=== PATIENT | female | born 1975 | race Caucasian/White ===

== ENCOUNTER 2018-05-11 14:17 | Emergency (ER) | payer OTHER ==
[2018-05-11] MEDS ORDERED: KETOROLAC 30 MG/ML INJ ONE (15:35)
[2018-05-11] MEDS ORDERED: FENTANYL CITR 100 MCG/2 ML ONE (15:35)
[2018-05-11] MEDS ORDERED: NA CHLORIDE 0.9% 1,000 ML ONE (15:36)
[2018-05-11] MEDS ORDERED: ONDANSETRON 4 MG/2 ML VIAL ONE ×2 (15:36→16:16)
--- NOTE | 2018-05-11 15:36 | ER ---
Nurse's Notes [facility] Name: Yue Desir Age: 42 yrs Sex: Female : 1975 Arrival Date: 05/11/2018 Time: 14:19 Bed 6 Private MD: Jax Tabor Diagnosis: Epilepsy and recurrent seizures;Migraine, unspecified;Hypokalemia Presentation: 05/11 14:35 Presenting complaint: Patient states: Migraine, photosensitivity, and N/V since hb yesterday. Hx migraines. Transition of care: patient was not received from another setting of care. Onset of symptoms was May 10, 2018. Risk Assessment: Do you want to hurt yourself or someone else? Patient reports no desire to harm self or others. Initial Sepsis Screen: Does the patient meet any 2 criteria? No. Patient's initial sepsis screen is negative. Does the patient have a suspected source of infection? No. Patient's initial sepsis screen is negative. Care prior to arrival: Medication(s) given: Glucagon, Motrin, at 1200 today. 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 - Social history:: Smoking status: Patient/guardian denies using tobacco. - Ebola Screening: : No symptoms or risks identified at this time. - Family history:: not pertinent. Screenin:00 Abuse screen: Denies threats or abuse. Denies injuries from another. Nutritional jl7 screening: No deficits noted. Tuberculosis screening: No symptoms or risk factors identified. Fall Risk IV access (20 points). Total Mistry Fall Scale indicates No Risk (0-24 pts). Assessment: 15:00 General: Appears in no apparent distress. uncomfortable, Behavior is calm, cooperative, jl7 appropriate for age. Pain: Complains of pain in headache Pain does not radiate. Pain currently is 10 out of 10 on a pain scale. Quality of pain is described as throbbing, Pain began 1 day ago. Is continuous. Neuro: Level of Consciousness is awake, alert, obeys commands, Oriented to person, place, time, situation, Moves all extremities. Gait is unsteady, Speech is normal, Facial symmetry appears normal. Cardiovascular: Patient's skin is warm and dry. Respiratory: Airway is patent Respiratory effort is even, unlabored, Respiratory pattern is regular, symmetrical. GI: Reports nausea, vomiting, Patient currently denies constipation, diarrhea. : No signs and/or symptoms were reported regarding the genitourinary system. EENT: No signs and/or symptoms were reported regarding the EENT system. Derm: Skin is pink, warm \T\ dry. Musculoskeletal: No signs and/or symptoms reported regarding the musculoskeletal system. 15:47 Reassessment: pt reports dizziness. jl7 15:50 Reassessment: Pt to CT. jl7 16:15 Reassessment: Pt reports severe dizziness and nausea. Provider notified, see MAR for jl7 orders. 17:00 Reassessment: pt laying in bed with eyes closed, respiration even and unlabored, NS jl7 bolus infusing at this time. 18:00 Reassessment: Pt reports moderate decrease in dizziness, increased GONZALEZ pain. Finished jl7 administration of fentanyl 25 mcg at this time. 19:35 Reassessment: Patient appears in no apparent distress at this time. Patient and/or tl2 family updated on plan of care and expected duration. Pain level reassessed. Patient is alert, oriented x 3, equal unlabored respirations, skin warm/dry/pink. US results are normal, MD stated pt can be discharged. Pt verbalized understanding of discharge instructions, need for follow up and prescription usage Patient states feeling better. Vital Signs: 14:36 BP 118 / 77; Pulse 67; Resp 16; Temp 98.1; Pulse Ox 98% on R/A; Weight 79.38 kg (M); hb Height 5 ft. 5 in. (165.10 cm); Pain 9/10; 15:47 BP 115 / 76; Pulse 57; Resp 16; Pulse Ox 100% ; jl7 18:00 BP 112 / 79; Pulse 59; Resp 16; Pulse Ox 99% ; jl7 19:13 BP 121 / 71; Pulse 62; Resp 18; Pulse Ox 100% on R/A; tl2 14:36 Body Mass Index 29.12 (79.38 kg, 165.10 cm) hb ED Course: 14:19 Patient arrived in ED. rg4 14:20 Jax Tabor MD is Private Physician. rg4 14:36 Triage completed. hb 14:37 Arm band placed on right wrist. hb 14:41 Willian Butler MD is Attending Physician. shauna 14:45 Nura Henry RN is Primary Nurse. jl7 15:00 Patient has correct armband on for positive identification. Bed in low position. Call jl7 light in reach. Side rails up X 1. Pulse ox on. NIBP on. 15:25 Initial lab(s) drawn, by me, sent to lab. Urine collected:. Inserted saline lock: 20 jl7 gauge in right antecubital area, using aseptic technique. Blood collected. 15:36 Jax Tabor MD is Referral Physician. shauna 15:36 Vinny Worthy MD is Referral Physician. shauna 15:57 CT completed. Patient tolerated procedure well. Patient moved back from CT. bq 16:00 CT Head Brain wo Cont In Process Unspecified. EDMS 19:10 Report given to YESSICA Mosher. jl7 19:18 US Carotid Artery Bilateral In Process Unspecified. EDMS 19:19 Ultrasound completed. Patient tolerated well. ap2 19:35 No provider procedures requiring assistance completed. IV discontinued, intact, tl2 bleeding controlled, No redness/swelling at site. Pressure dressing applied. Administered Medications: 15:15 Not Given (Duplicate Order): Demerol 50 mg IM once shauna 15:15 Not Given (Duplicate Order): Phenergan 25 mg IM once shauna 15:41 Drug: Zofran 4 mg Route: IVP; Site: right antecubital; jl7 17:03 Follow up: Response: No adverse reaction jl7 15:42 Drug: NS 0.9% 1000 ml Route: IV; Rate: 1 bolus; Site: right antecubital; jl7 17:03 Follow up: IV Status: Completed infusion jl7 15:46 Drug: fentaNYL (PF) 50 mcg {Note: 25 mcg administered at this time..} Route: IVP; Site: jl7 right antecubital; 18:01 Follow up: Response: No adverse reaction; Pt c/o GONZALEZ, throbbing is returning. Finished jl7 administration of ordered dose, 25 mcg administered at this time. 15:47 Drug: TORadol 30 mg Route: IVP; Site: right antecubital; jl7 17:03 Follow up: Response: No adverse reaction; Pain is decreased jl7 16:17 Drug: Zofran 4 mg Route: IVP; Site: right antecubital; jl7 18:02 Follow up: Response: No adverse reaction jl7 16:19 Drug: Meclizine 50 mg Route: PO; jl7 18:02 Follow up: Response: No adverse reaction jl7 18:01 Drug: Potassium Chloride 20 mEq Route: PO; jl7 18:02 Follow up: Response: No adverse reaction jl7 Intake: Outcome: 15:36 Discharge ordered by . shauna 19:35 Discharged to home ambulatory, with friend. tl2 19:35 Condition: stable 19:35 Discharge instructions given to patient, Instructed on discharge instructions, follow up and referral plans. medication usage, Demonstrated understanding of instructions, follow-up care, medications, Prescriptions given X 3. 19:37 Patient left the ED. tl2 Signatures: Dispatcher [employer] EDMS Willian Butler MD MD cha Quilty, Betty bq Baxter, Heather RN YESSICA Vidhi Saucedo RN RN tl2 Maggie Alvarado Jahala, RN RN jl7 Ana Dias Corrections: (The following items were deleted from the chart) 18:04 17:03 Response: No adverse reaction jl7 jl7
--- NOTE | 2018-05-11 15:37 | EDPHYS ---
Physician Documentation [facility] Name: Yue Desir Age: 42 yrs Sex: Female : 1975 Arrival Date: 05/11/2018 Time: 14:19 Bed 6 Private MD: Jax Tabor ED Physician Willian Butler HPI: 05/11 15:18 This 42 yrs old Female presents to ER via Ambulatory with complaints of shauna MIGRAINE. 15:18 The patient complains of pain to the top of head, forehead, left side of the back of shauna head, left temporal area, right side of the back of head and right temporal area. The patient describes the headache as a pressure. Onset: The symptoms/episode began/occurred 2 day(s) ago. Associated signs and symptoms: Pertinent positives: nausea, vomiting. Severity of symptoms: At its worst the pain was moderate, in the emergency department the pain is unchanged. Headache History: The patient has had previous headaches and this one is similar to previous episodes. The symptoms are alleviated by nothing. the symptoms are aggravated by nothing. The patient has experienced similar episodes in the past, multiple times. 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 - Social history:: Smoking status: Patient/guardian denies using tobacco. - Ebola Screening: : No symptoms or risks identified at this time. - Family history:: not pertinent. ROS: 15:18 Constitutional: Negative for fever, chills, and weight loss, Eyes: Negative for injury, shauna pain, redness, and discharge, ENT: Negative for injury, pain, and discharge, Neck: Negative for injury, pain, and swelling, Cardiovascular: Negative for chest pain, palpitations, and edema, Respiratory: Negative for shortness of breath, cough, wheezing, and pleuritic chest pain, Abdomen/GI: Negative for abdominal pain, nausea, vomiting, diarrhea, and constipation, Back: Negative for injury and pain, : Negative for injury, bleeding, discharge, and swelling, MS/Extremity: Negative for injury and deformity, Skin: Negative for injury, rash, and discoloration, Psych: Negative for depression, anxiety, suicide ideation, homicidal ideation, and hallucinations, Allergy/Immunology: Negative for hives, rash, and allergies, Endocrine: Negative for neck swelling, polydipsia, polyuria, polyphagia, and marked weight changes, Hematologic/Lymphatic: Negative for swollen nodes, abnormal bleeding, and unusual bruising. 15:18 Neuro: Positive for headache. Exam: 15:18 Constitutional: This is a well developed, well nourished patient who is awake, alert, shauna and in no acute distress. Head/Face: Normocephalic, atraumatic. Eyes: Pupils equal round and reactive to light, extra-ocular motions intact. Lids and lashes normal. Conjunctiva and sclera are non-icteric and not injected. Cornea within normal limits. Periorbital areas with no swelling, redness, or edema. ENT: Nares patent. No nasal discharge, no septal abnormalities noted. Tympanic membranes are normal and external auditory canals are clear. Oropharynx with no redness, swelling, or masses, exudates, or evidence of obstruction, uvula midline. Mucous membranes moist. Neck: Trachea midline, no thyromegaly or masses palpated, and no cervical lymphadenopathy. Supple, full range of motion without nuchal rigidity, or vertebral point tenderness. No Meningismus. Chest/axilla: Normal chest wall appearance and motion. Nontender with no deformity. No lesions are appreciated. Cardiovascular: Regular rate and rhythm with a normal S1 and S2. No gallops, murmurs, or rubs. Normal PMI, no JVD. No pulse deficits. Respiratory: Lungs have equal breath sounds bilaterally, clear to auscultation and percussion. No rales, rhonchi or wheezes noted. No increased work of breathing, no retractions or nasal flaring. Abdomen/GI: Soft, non-tender, with normal bowel sounds. No distension or tympany. No guarding or rebound. No evidence of tenderness throughout. Back: No spinal tenderness. No costovertebral tenderness. Full range of motion. Skin: Warm, dry with normal turgor. Normal color with no rashes, no lesions, and no evidence of cellulitis. MS/ Extremity: Pulses equal, no cyanosis. Neurovascular intact. Full, normal range of motion. Neuro: Awake and alert, GCS 15, oriented to person, place, time, and situation. Cranial nerves II-XII grossly intact. Motor strength 5/5 in all extremities. Sensory grossly intact. Cerebellar exam normal. Normal gait. Psych: Awake, alert, with orientation to person, place and time. Behavior, mood, and affect are within normal limits. Vital Signs: 14:36 BP 118 / 77; Pulse 67; Resp 16; Temp 98.1; Pulse Ox 98% on R/A; Weight 79.38 kg (M); hb Height 5 ft. 5 in. (165.10 cm); Pain 9/10; 15:47 BP 115 / 76; Pulse 57; Resp 16; Pulse Ox 100% ; jl7 18:00 BP 112 / 79; Pulse 59; Resp 16; Pulse Ox 99% ; jl7 19:13 BP 121 / 71; Pulse 62; Resp 18; Pulse Ox 100% on R/A; tl2 14:36 Body Mass Index 29.12 (79.38 kg, 165.10 cm) hb MDM: 14:41 Patient medically screened. [facility] 15:21 Data reviewed: vital signs, nurses notes, lab test result(s), radiologic studies, CT shauna scan. 05/11 15:04 Order name: Urine Culture [facility] 05/11 15:13 Order name: Urine Dipstick--Ancillary (enter results); Complete Time: 18:14 05/11 15:16 Order name: CBC with Diff; Complete Time: 16:48 [facility] 05/11 15:16 Order name: Comprehensive Metabolic Panel; Complete Time: 16:48 [facility] 05/11 15:22 Order name: CT Head Brain wo Cont; Complete Time: 16:48 [facility] 05/11 18:14 Order name: US Carotid Artery Bilateral [facility] 05/11 15:04 Order name: Urine Dipstick-Ancillary (obtain specimen); Complete Time: 15:13 [facility] 05/11 15:04 Order name: Urine Test (obtain specimen); Complete Time: 15:13 [facility] Administered Medications: 15:15 Not Given (Duplicate Order): Demerol 50 mg IM once [facility] 15:15 Not Given (Duplicate Order): Phenergan 25 mg IM once shauna 15:41 Drug: Zofran 4 mg Route: IVP; Site: right antecubital; jl7 17:03 Follow up: Response: No adverse reaction jl7 15:42 Drug: NS 0.9% 1000 ml Route: IV; Rate: 1 bolus; Site: right antecubital; jl7 17:03 Follow up: IV Status: Completed infusion jl7 15:46 Drug: fentaNYL (PF) 50 mcg {Note: 25 mcg administered at this time..} Route: IVP; Site: [facility] right antecubital; 18:01 Follow up: Response: No adverse reaction; Pt c/o GONZALEZ, throbbing is returning. Finished jl7 administration of ordered dose, 25 mcg administered at this time. 15:47 Drug: TORadol 30 mg Route: IVP; Site: right antecubital; [facility] 17:03 Follow up: Response: No adverse reaction; Pain is decreased jl7 16:17 Drug: Zofran 4 mg Route: IVP; Site: right antecubital; jl7 18:02 Follow up: Response: No adverse reaction [facility] 16:19 Drug: Meclizine 50 mg Route: PO; jl7 18:02 Follow up: Response: No adverse reaction jl7 18:01 Drug: Potassium Chloride 20 mEq Route: PO; jl7 18:02 Follow up: Response: No adverse reaction [facility] Disposition: 05/11/18 15:36 Discharged to Home. Impression: Epilepsy and recurrent seizures, Migraine, unspecified, Hypokalemia. - Condition is Stable. - Discharge Instructions: Dizziness, Migraine Headache, Recurrent Migraine Headache, Seizure, Adult, Seizure, Adult, Orsw-se-Dczs, Migraine Headache, Penj-mb-Rish, Dizziness, Odfk-lh-Nzwx. - Prescriptions for Fioricet with Codeine 50- 325-40-30 mg Oral capsule - take 1 capsule by ORAL route every 4 hours as needed not to exceed 6 capsules per 24hrs; 24 capsule. Zofran 4 mg Oral Tablet - take 1 tablet by ORAL route every 12 hours As needed; 20 tablet. Meclizine 25 mg Oral Tablet - take 1 tablet by ORAL route every 8 hours As needed; 30 tablet. - Medication Reconciliation Form, Thank You Letter, Antibiotic Education, Prescription Opioid Use form. - Follow up: Jax Tabor; When: 2 - 3 days; Reason: Recheck today's complaints, Continuance of care, Re-evaluation by your physician. Follow up: Vinny Worthy; When: 2 - 3 days; Reason: Recheck today's complaints, Re-evaluation by your physician. - Problem is new. - Symptoms have improved. Signatures: Dispatcher [employer] EDMS Willian Butler MD MD cha Baxter, Heather RN RN hb Vidhi Saucedo RN RN tl2 Nura Henry RN RN jl7 Corrections: (The following items were deleted from the chart) 16:49 15:36 05/11/2018 15:36 Discharged to Home. Impression: Epilepsy and recurrent seizures; shauna Migraine, unspecified. Condition is Stable. Discharge Instructions: Migraine Headache, Recurrent Migraine Headache, Seizure, Adult, Seizure, Adult, Rtqf-[id number], Migraine Headache, Fmtz-pn-Bocm. Prescriptions for Fioricet with Codeine 26-399-74-30 mg Oral capsule - take 1 capsule by ORAL route every 4 hours as needed not to exceed 6 capsules per 24hrs; 24 capsule, Zofran 4 mg Oral Tablet - take 1 tablet by ORAL route every 12 hours As needed; 20 tablet. and Forms are Medication Reconciliation Form, Thank You Letter, Antibiotic Education, Prescription Opioid Use. Follow up: Jax Tabor; When: 2 - 3 days; Reason: Recheck today's complaints, Continuance of care, Re-evaluation by your physician. Follow up: Vinny Worthy; When: 2 - 3 days; Reason: Recheck today's complaints, Re-evaluation by your physician. Problem is new. Symptoms have improved. shauna 19:37 16:49 05/11/2018 15:36 Discharged to Home. Impression: Epilepsy and recurrent seizures; tl2 Migraine, unspecified; Hypokalemia. Condition is Stable. Discharge Instructions: Migraine Headache, Recurrent Migraine Headache, Seizure, Adult, Seizure, Adult, Gcsw-dn-Adgz, Migraine Headache, Nrga-dg-Lusk. Prescriptions for Fioricet with Codeine [id number] mg Oral capsule - take 1 capsule by ORAL route every 4 hours as needed not to exceed 6 capsules per 24hrs; 24 capsule, Zofran 4 mg Oral Tablet - take 1 tablet by ORAL route every 12 hours As needed; 20 tablet. and Forms are Medication Reconciliation Form, Thank You Letter, Antibiotic Education, Prescription Opioid Use. Follow up: Jax Tabor; When: 2 - 3 days; Reason: Recheck today's complaints, Continuance of care, Re-evaluation by your physician. Follow up: Vinny Worthy; When: 2 - 3 days; Reason: Recheck today's complaints, Re-evaluation by your physician. Problem is new. Symptoms have improved. shauna
[2018-05-11 15:49] LABS: Absolute Lymphocytes (CBC) 1.8 K/uL (0.7-4.9); Absolute Monocytes 0.5 K/uL (0.1-1.3); Absolute Neutrophil 4.4 K/uL (1.8-8.0); Basophils % 0.4 % (0-1.3); Eosinophils % 2.3 % (0-4.4); Hematocrit 38.4 % (36.0-45.0); Lymphocytes % 26.2 % (15.3-44.8); MCH 31.6 pg (27.0-35.0); MCV 94.1 fL (80-100); MPV 8.1 fL (7.6-11.3); Monocytes % 7.6 % (3.3-12.3); RBC Red Blood Cell Count 4.08 M/uL (3.86-4.86)
[2018-05-11 15:59] LABS: Potassium 3.5 mEq/L (3.6-5.0)
[2018-05-11 16:03] LABS: Albumin 3.8 g/dL (3.2-5.5); Bilirubin Total 0.5 mg/dL (0.3-1.2); Protein, Total 6.6 g/dL (6.0-8.3)
--- NOTE | 2018-05-11 16:07 | RAD REPORT ---
EXAM DESCRIPTION: CT - Head Brain Wo Cont - 05/11/2018 3:59 pm CLINICAL HISTORY: Headache COMPARISON: January 2018 TECHNIQUE: Computed axial tomography of the head was obtained. IV contrast was not requested. All CT scans are performed using dose optimization technique as appropriate and may include automated exposure control or mA/KV adjustment according to patient size. FINDINGS: An intracranial bleed is not seen . The ventricles are normal in caliber. No extra-axial fluid collection is noted. Fluid within the sinuses/ mastoids is not seen. IMPRESSION: No acute intracranial abnormality is seen. If patient's symptoms persist MRI of the bra in would be recommended.
[2018-05-11] MEDS ORDERED: MECLIZINE HCL 12.5 MG TAB ONE (16:16)
[2018-05-11 17:18] LABS: Urine Blood 1+ (NEG); Urine Glucose NEGATIVE (NEG); Urine Protein NEGATIVE (NEG); Urine Specific Gravity <1.005 (1.005-1.030)
[2018-05-11] MEDS ORDERED: POTASSIUM CL SA 10 MEQ TAB PO ONE (17:59)
--- NOTE | 2018-05-11 19:36 | RAD REPORT ---
EXAM DESCRIPTION: VASCarotid Artery Bilateral05/11/2018 7:18 pm CLINICAL HISTORY: Syncope COMPARISON: None FINDINGS: The velocity of the right internal carotid artery equals 35 cm/sec. The right ICA/CCA rati o 0.9 The velocity of the left internal carotid artery equals 74 cm/sec. The left ICA/CCA ratio 0.7 Plaque is not visualized within the arteries. The vertebral arteries demonstrate antegrade flow IMPRESSION: Unremarkable exam
== END 2018-05-11 19:37 | disposition home or self-care (01) ==
LOC: ER 14:17
DX: G43.909 Migraine, unspecified, not intractable, without status migrainosus (principal); G40.909 Epilepsy, unspecified, not intractable, without status epilepticus; E87.6 Hypokalemia; Z88.5 Allergy status to narcotic agent; Z88.8 Allergy status to other drugs, medicaments and biological substances; Z91.048 Other nonmedicinal substance allergy status
CPT/HCPCS: 36415; 70450; 80053; 81003; 85025; 87086; 87088; 93880; 96361; 96374; 96375; 99284; J2405; J3010; J7030

== ENCOUNTER 2019-01-25 12:43 | Emergency (ER) | payer OTHER ==
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
--- OUTSIDE RECORDS SUMMARY | 2019-01-25 12:48 | XMS REPORT ---
:1975 Author Organization [facility] Address [address] [place] [address] Dr. Herzog [address] [place] [id number] Care Team Providers Name Role Phone Unavailable Unavailable Unavailable Problems This patient has no known problems. Allergies, Adverse Reactions, Alerts This patient has no known allergies or adverse reactions. Medications This patient has no known medications.
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
--- OUTSIDE RECORDS SUMMARY | 2019-01-25 12:48 | XMS REPORT | Summary of Care ---
:1975 Author Encounter RADHA Daniel(EDUARDO) [id number] Date(s): 05/13/15 - 05/13/[address] [facility] [place] [address] [place] [address]- Discharge Diagnosis: Right ankle swelling Discharge Diagnosis: Paresthesias/numbness Discharge Disposition: Home Physician Attending: Rose San MD Vital Signs Most recent to oldest [Reference Range]: 1 2 Height 165.1 cm (05/13/15 8:00 AM) Temperature Oral [96.4-99.1 DegF] 98.6 DegF 97.8 DegF (05/13/15 11:48 AM) (05/13/15 8:00 AM) Blood Pressure [90-140/60-90 mmHg] 122/77 mmHg 119/70 mmHg (05/13/15 11:48 AM) (05/13/15 8:00 AM) Respiratory Rate [14-20 BRMIN] 18 BRMIN 16 BRMIN (05/13/15 11:48 AM) (05/13/15 8:00 AM) Peripheral Pulse Rate [60-100 bpm] 66 bpm 63 bpm (05/13/15 11:48 AM) (05/13/15 8:00 AM) Weight 81.818 kg (05/13/15 8:00 AM) Body Mass Index 30.02 m2 (05/13/15 8:00 AM) Problem List No data available for this section Allergies, Adverse Reactions, Alerts Substance Reaction Severity Status Dilantin Active iodine Active Phenergan Active TEGretol Active Medications ibuprofen 800 mg oral tablet 800 mg=1 tab, PO, Q8H, PRN Pain, Take with food, # 30 tab, 0 Refill(s) Special Instructions: Take with food Start Date: 05/13/15 Status: Ordered Results No data available for this section Immunizations No data available for this section Procedures No data available for this section Social History Social History Type Response Smoking Status Current every day smoker; Lives with someone who smokes; Cigarette Smoking Last 365 Days Yes; Reg Smoking Cessation Counseling No Assessment and Plan No data available for this section
--- NOTE | 2019-01-25 14:02 | RAD REPORT ---
EXAM DESCRIPTION: Tristan Gary (2 Views)01/25/2019 1:41 pm CLINICAL HISTORY: Cough COMPARISON: None FINDINGS: The lungs appear clear of acute infiltrate. The heart is normal size IMPRESSION: No acute abnormalities displayed
[2019-01-25] MEDS ORDERED: AZITHROMYCIN 250 MG TAB ONE (14:11)
[2019-01-25] MEDS ORDERED: LIDOCAINE 1% MPF 2 ML AMPULE ONE (14:12)
[2019-01-25] MEDS ORDERED: CEFTRIAXONE 1000 MG/VIAL ONE (14:12)
--- NOTE | 2019-01-25 14:13 | EDPHYS ---
Physician Documentation [facility] Name: Yue Desir Age: 43 yrs Sex: Female : 1975 Arrival Date: 01/25/2019 Time: 12:48 Bed 5 Private MD: Jax Tabor ED Physician Willian Butler HPI: 01/25 13:27 This 43 yrs old Female presents to ER via Ambulatory with complaints of shauna Cough, Congestion. 13:27 The patient or guardian reports cough, that is intermittent, difficulty breathing, flu shauna symptoms, arthralgias, low-grade fever, myalgias. Onset: The symptoms/episode began/occurred 3 day(s) ago. Severity of symptoms: At their worst the symptoms were mild, moderate, in the emergency department the symptoms are unchanged. Modifying factors: The symptoms are alleviated by nothing, the symptoms are aggravated by nothing. Associated signs and symptoms: The patient has no apparent associated signs or symptoms. The patient has not experienced similar symptoms in the past. 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 - Social history:: Smoking status: Patient/guardian denies using tobacco. - Ebola Screening: : Patient negative for fever greater than or equal to 101.5 degrees Fahrenheit, and additional compatible Ebola Virus Disease symptoms Patient denies exposure to infectious person Patient denies travel to an Ebola-affected area in the 21 days before illness onset No symptoms or risks identified at this time. - Family history:: not pertinent. ROS: 13:27 Constitutional: Negative for fever, chills, and weight loss, Eyes: Negative for injury, shauna pain, redness, and discharge, ENT: Negative for injury, pain, and discharge, Neck: Negative for injury, pain, and swelling, Cardiovascular: Negative for chest pain, palpitations, and edema, Abdomen/GI: Negative for abdominal pain, nausea, vomiting, diarrhea, and constipation, Back: Negative for injury and pain, : Negative for injury, bleeding, discharge, and swelling, MS/Extremity: Negative for injury and deformity, Skin: Negative for injury, rash, and discoloration, Psych: Negative for depression, anxiety, suicide ideation, homicidal ideation, and hallucinations, Allergy/Immunology: Negative for hives, rash, and allergies, Endocrine: Negative for neck swelling, polydipsia, polyuria, polyphagia, and marked weight changes, Hematologic/Lymphatic: Negative for swollen nodes, abnormal bleeding, and unusual bruising. 13:27 Respiratory: Positive for cough, with green sputum. Exam: 13:27 Constitutional: This is a well developed, well nourished patient who is awake, alert, shauna and in no acute distress. Head/Face: Normocephalic, atraumatic. Eyes: Pupils equal round and reactive to light, extra-ocular motions intact. Lids and lashes normal. Conjunctiva and sclera are non-icteric and not injected. Cornea within normal limits. Periorbital areas with no swelling, redness, or edema. ENT: Nares patent. No nasal discharge, no septal abnormalities noted. Tympanic membranes are normal and external auditory canals are clear. Oropharynx with no redness, swelling, or masses, exudates, or evidence of obstruction, uvula midline. Mucous membranes moist. Neck: Trachea midline, no thyromegaly or masses palpated, and no cervical lymphadenopathy. Supple, full range of motion without nuchal rigidity, or vertebral point tenderness. No Meningismus. Chest/axilla: Normal chest wall appearance and motion. Nontender with no deformity. No lesions are appreciated. Cardiovascular: Regular rate and rhythm with a normal S1 and S2. No gallops, murmurs, or rubs. Normal PMI, no JVD. No pulse deficits. Abdomen/GI: Soft, non-tender, with normal bowel sounds. No distension or tympany. No guarding or rebound. No evidence of tenderness throughout. Back: No spinal tenderness. No costovertebral tenderness. Full range of motion. Female : Normal external genitalia. Skin: Warm, dry with normal turgor. Normal color with no rashes, no lesions, and no evidence of cellulitis. MS/ Extremity: Pulses equal, no cyanosis. Neurovascular intact. Full, normal range of motion. Neuro: Awake and alert, GCS 15, oriented to person, place, time, and situation. Cranial nerves II-XII grossly intact. Motor strength 5/5 in all extremities. Sensory grossly intact. Cerebellar exam normal. Normal gait. Psych: Awake, alert, with orientation to person, place and time. Behavior, mood, and affect are within normal limits. 13:27 Respiratory: the patient does not display signs of respiratory distress, Respirations: normal, no acute changes, Breath sounds: bronchial sounds, that are mild, decreased breath sounds, are not appreciated, rhonchi, that are mild, are scattered, stridor, is not appreciated. 14:12 Neck: ROM/movement: is normal, no acute changes, Meningeal signs: are not present, shauna Kernig's sign is negative, Brudzinski's sign is negative. 14:12 Musculoskeletal/extremity: DVT Exam: No signs of deep vein thrombosis. no pain, no shauna swelling, no tenderness, negative Homans' sign noted on exam, no appreciated bluish discoloration, no erythema, no increased warmth. 14:12 Neuro: Orientation: is normal, appropriate for stated age, no acute changes, Mentation: is normal, appropriate for stated age, Memory: is normal, appropriate for stated age, no acute changes, Cranial nerves: grossly normal, is grossly normal based on the patient's age, no acute changes, Cerebellar function: is grossly normal, is grossly normal based on the patient's age, no acute changes, Motor: is normal, is grossly normal based on the patient's age, Sensation: is normal, no obvious gross deficits, appropriate Gait: not applicable Deep tendon reflexes are 2+ (normal) in the bilateral brachioradialis, bicep, tricep and patellar and Achilles tendons, Babinski testing is normal, seizure activity, is not displayed by the patient. Vital Signs: 13:07 BP 90 / 55; Pulse 87; Resp 17; Pulse Ox 100% on R/A; Weight 79.38 kg; Height 5 ft. 9 sg in. (175.26 cm); Pain 10/10; 14:42 BP 98 / 59; Pulse 62; Resp 16; Temp 98.4; Pulse Ox 99% on R/A; Pain 8/10; ch 13:07 Body Mass Index 25.84 (79.38 kg, 175.26 cm) MDM: 13:04 Patient medically screened. [facility] 13:29 Data reviewed: vital signs, nurses notes, lab test result(s), radiologic studies, plain [facility] films. 01/25 13:26 Order name: Influenza Screen (a \T\ B); Complete Time: 14:17 [facility] 01/25 14:05 Order name: Urine Dipstick--Ancillary (enter results) ms 01/25 13:26 Order name: Chest Pa And Lat (2 Views) XRAY; Complete Time: 14:11 [facility] 01/25 13:26 Order name: Urine Dipstick-Ancillary (obtain specimen); Complete Time: 14:39 [facility] Administered Medications: 13:35 CANCELLED (Duplicate Order): Tussionex Pennkinetic ER 5 ml PO once [facility] 14:07 Drug: Rocephin (cefTRIAXone) 1 grams Route: IM; Site: right ventrogluteal; 14:39 Follow up: Response: No adverse reaction 14:07 Drug: Zithromax 500 mg Route: PO; 14:39 Follow up: Response: No adverse reaction Disposition: 01/25/19 14:13 Discharged to Home. Impression: Cough, Acute upper respiratory infection, unspecified, Influenza due to identified novel influenza A virus. - Condition is Stable. - Discharge Instructions: Influenza, Adult, Upper Respiratory Infection, Adult, Cool Mist Vaporizer, Influenza, Adult, [id number], Cough, Adult, Emni-yo-Zodt, Cough, Adult. - Prescriptions for Zithromax 500 mg Oral Tablet - take 1 tablet by ORAL route once daily for 4 days; 4 tablet. Bromfed DM 2- 30-10 mg/5 mL Oral syrup - take 10 milliliter by ORAL route every 4 hours; 160 milliliter. Tamiflu 75 mg Oral Capsule - take 1 tablet by ORAL route every 12 hours for 5 days; 10 tablet. - Medication Reconciliation Form, Thank You Letter, Antibiotic Education, Prescription Opioid Use form. - Work release form (01/25/19 14:45). - Follow up: Jax Tabor; When: 2 - 3 days; Reason: Recheck today's complaints, Continuance of care, Re-evaluation by your physician. - Problem is new. - Symptoms have improved. Signatures: Dispatcher [employer] Elli Sadler RN RN Elmo Aguirre RN RN Willian Butler MD MD [facility] Corrections: (The following items were deleted from the chart) 13:35 13:27 Tussionex Pennkinetic ER Suspension 5 ml PO once ordered. [facility] 14:17 14:13 01/25/2019 14:13 Discharged to Home. Impression: Cough; Acute upper respiratory shauna infection, unspecified. Condition is Stable. Discharge Instructions: Upper Respiratory Infection, Adult, Cool Mist Vaporizer, Cough, Adult, [id number]-[id number], Cough, Adult. Prescriptions for Medrol (Harsh) 4 mg Oral Tablets, Dose Pack - take 1 tablet by ORAL route as directed - follow package instructions; 1 packet, Zithromax 500 mg Oral Tablet - take 1 tablet by ORAL route once daily for 4 days; 4 tablet, Bromfed DM 2-30-10 mg/5 mL Oral syrup - take 10 milliliter by ORAL route every 4 hours; 160 milliliter. and Forms are Medication Reconciliation Form, Thank You Letter, Antibiotic Education, Prescription Opioid Use. Follow up: Jax Tabor; When: 2 - 3 days; Reason: Recheck today's complaints, Continuance of care, Re-evaluation by your physician. Problem is new. Symptoms have improved. [facility] 14:45 14:17 01/25/2019 14:13 Discharged to Home. Impression: Cough; Acute upper respiratory ch infection, unspecified; Influenza due to identified novel influenza A virus. Condition is Stable. Discharge Instructions: Upper Respiratory Infection, Adult, Cool Mist Vaporizer, Cough, Adult, Kmgq-en-Vpan, Cough, Adult, Influenza, Adult, Influenza, Adult, Xinr-cj-Yavo. Prescriptions for Zithromax 500 mg Oral Tablet - take 1 tablet by ORAL route once daily for 4 days; 4 tablet, Bromfed DM 2-30-10 mg/5 mL Oral syrup - take 10 milliliter by ORAL route every 4 hours; 160 milliliter, Tamiflu 75 mg Oral Capsule - take 1 tablet by ORAL route every 12 hours for 5 days; 10 tablet. and Forms are Medication Reconciliation Form, Thank You Letter, Antibiotic Education, Prescription Opioid Use. Follow up: Jax Tabor; When: 2 - 3 days; Reason: Recheck today's complaints, Continuance of care, Re-evaluation by your physician. Problem is new. Symptoms have improved. [facility]
--- NOTE | 2019-01-25 14:13 | ER ---
Nurse's Notes [facility] Name: Yue Desir Age: 43 yrs Sex: Female : 1975 Arrival Date: 01/25/2019 Time: 12:48 Bed 5 Private MD: Jax Tabor Diagnosis: Cough;Acute upper respiratory infection, unspecified;Influenza due to identified novel influenza A virus Presentation: 01/25 13:00 Presenting complaint: Patient states: Painful cough and chest congestion for several sg days, denies N/V/D, unsure if fever reports has felt warm at home. Transition of care: patient was not received from another setting of care. Onset of symptoms was January 25, 2019. Risk Assessment: Do you want to hurt yourself or someone else? Patient reports no desire to harm self or others. Initial Sepsis Screen: Does the patient meet any 2 criteria? No. Patient's initial sepsis screen is negative. Does the patient have a suspected source of infection? No. Patient's initial sepsis screen is negative. Care prior to arrival: None. 13:00 Method Of Arrival: Ambulatory sg 13:00 Acuity: FREDRICK 3 sg 13:07 Note reports headache as well. sg Triage Assessment: 14:44 General: Appears in no apparent distress. comfortable, Behavior is calm, cooperative, ch appropriate for age. Respiratory: No deficits noted. 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 - Social history:: Smoking status: Patient/guardian denies using tobacco. - Ebola Screening: : Patient negative for fever greater than or equal to 101.5 degrees Fahrenheit, and additional compatible Ebola Virus Disease symptoms Patient denies exposure to infectious person Patient denies travel to an Ebola-affected area in the 21 days before illness onset No symptoms or risks identified at this time. - Family history:: not pertinent. Screenin:42 Abuse screen: Denies threats or abuse. Denies injuries from another. Nutritional ch screening: No deficits noted. Tuberculosis screening: No symptoms or risk factors identified. Fall Risk None identified. Assessment: 14:42 Pain: Complains of pain in general body aches. Cardiovascular: Capillary refill < 3 ch seconds in bilateral fingers toes Clubbing of nail beds is absent. Respiratory: Reports cough that is productive, Airway is patent Respiratory effort is even, unlabored, Breath sounds are clear bilaterally. GI: No signs and/or symptoms were reported involving the gastrointestinal system. Derm: Skin is moist, Skin is pale, Skin temperature is hot. Musculoskeletal: No signs and/or symptoms reported regarding the musculoskeletal system. Circulation, motion, and sensation intact. Capillary refill < 3 seconds, in bilateral fingers. toes. Range of motion: intact in all extremities. Vital Signs: 13:07 BP 90 / 55; Pulse 87; Resp 17; Pulse Ox 100% on R/A; Weight 79.38 kg; Height 5 ft. 9 sg in. (175.26 cm); Pain 10/10; 14:42 BP 98 / 59; Pulse 62; Resp 16; Temp 98.4; Pulse Ox 99% on R/A; Pain 8/10; ch 13:07 Body Mass Index 25.84 (79.38 kg, 175.26 cm) sg ED Course: 12:48 Patient arrived in ED. mr 12:49 Jax Tabor MD is Private Physician. mr 13:00 Arm band placed on. sg 13:01 Triage completed. sg 13:04 Willian Butler MD is Attending Physician. shauna 13:08 Elli Golden, YESSICA is Primary Nurse. ch 13:30 No apparent distress. Resting quietly. ch 13:30 Patient has correct armband on for positive identification. Placed in gown. Bed in low ch position. Call light in reach. Side rails up X 1. Pulse ox on. NIBP on. Warm blanket given. 13:30 No provider procedures requiring assistance completed. Patient did not have IV access ch during this emergency room visit. 13:39 Chest Pa And Lat (2 Views) XRAY In Process Unspecified. EDMS 14:13 Jax Tabor MD is Referral Physician. shauna Administered Medications: 13:35 CANCELLED (Duplicate Order): Tussionex Pennkinetic ER 5 ml PO once shauna 14:07 Drug: Rocephin (cefTRIAXone) 1 grams Route: IM; Site: right ventrogluteal; 14:39 Follow up: Response: No adverse reaction 14:07 Drug: Zithromax 500 mg Route: PO; 14:39 Follow up: Response: No adverse reaction Outcome: 14:13 Discharge ordered by . [facility] 14:44 Discharged to home ambulatory, with family. 14:44 Condition: stable 14:44 Discharge instructions given to patient, Instructed on discharge instructions, follow up and referral plans. medication usage, Demonstrated understanding of instructions, follow-up care, medications, Prescriptions given X 3. 14:45 Patient left the ED. Signatures: Dispatcher [employer] EDElli Alford RN RN ch Gay, Steven, RN RN sg Anderson, Corey, MD MD cha Rivera, Mary mr
[2019-01-25 20:38] LABS: Urine Blood 1+ (NEG); Urine Glucose NEGATIVE (NEG); Urine Protein NEGATIVE (NEG); Urine Specific Gravity <1.005 (1.005-1.030)
== END 2019-01-25 14:45 | disposition home or self-care (01) ==
LOC: ER 12:43
DX: R06.9 Unspecified abnormalities of breathing (principal); J11.1 Influenza due to unidentified influenza virus with other respiratory manifestations; Z88.5 Allergy status to narcotic agent; Z88.8 Allergy status to other drugs, medicaments and biological substances
CPT/HCPCS: 71046; 81003; 87804; J2001

== ENCOUNTER 2019-02-15 23:47 | Emergency (ER) | payer OTHER ==
--- OUTSIDE RECORDS SUMMARY | 2019-02-15 23:50 | XMS REPORT ---
:1975 [facility] [address] [place] [address] Dr. Herzog [address] [place] [id number] Care Team Providers Name Role Phone Unavailable Unavailable Unavailable Problems This patient has no known problems. Allergies, Adverse Reactions, Alerts This patient has no known allergies or adverse reactions. Medications This patient has no known medications.
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
[2019-02-16] MEDS ORDERED: DIPHENHYDRAMINE 50 MG/ML VIAL ONE (00:10)
[2019-02-16] MEDS ORDERED: KETOROLAC 30 MG/ML INJ ONE (00:10)
[2019-02-16] MEDS ORDERED: NA CHLORIDE 0.9% 1,000 ML ONE (00:10)
[2019-02-16] MEDS ORDERED: ONDANSETRON 4 MG/2 ML VIAL ONE (00:28)
[2019-02-16 00:46] LABS: Absolute Lymphocytes (CBC) 1.5 K/uL (0.7-4.9); Absolute Monocytes 0.7 K/uL (0.1-1.3); Absolute Neutrophil 6.5 K/uL (1.8-8.0); Basophils % 0.2 % (0-1.3); Eosinophils % 1.2 % (0-4.4); Hematocrit 41.6 % (36.0-45.0); MPV 8.2 fL (7.6-11.3); Monocytes % 7.9 % (3.3-12.3); RBC Red Blood Cell Count 4.52 M/uL (3.86-4.86)
[2019-02-16 01:27] LABS: Potassium 3.7 mmol/L (3.5-5.1)
--- NOTE | 2019-02-16 01:46 | EDPHYS ---
Physician Documentation [facility] Name: Yue Desir Age: 43 yrs Sex: Female : 1975 Arrival Date: 02/15/2019 Time: 23:48 Bed 27 Private MD: ED Physician Diego Rowan HPI: 02/16 01:50 This 43 yrs old Female presents to ER via EMS with complaints of Headache. snw 01:50 The patient complains of pain to the forehead. The patient describes the headache as snw throbbing. Onset: The symptoms/episode began/occurred gradually, this morning, and became persistent. Severity of symptoms: At its worst the pain was moderate, severe, in the emergency department the pain has improved, markedly. Headache History: The patient has had previous headaches and this one is similar to previous episodes, and this one is more severe than previous episodes. The symptoms are alleviated by nothing. The patient has experienced similar episodes in the past. It is unknown whether or not the patient has recently seen a physician. 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 - Social history:: Smoking status: Patient/guardian denies using tobacco, never smoked. - Ebola Screening: : Patient negative for fever greater than or equal to 101.5 degrees Fahrenheit, and additional compatible Ebola Virus Disease symptoms. ROS: 02/16 01:50 Constitutional: Negative for fever, chills, and weight loss, Eyes: Negative for injury, snw pain, redness, and discharge, ENT: Negative for injury, pain, and discharge, Neck: Negative for injury, pain, and swelling, Cardiovascular: Negative for chest pain, palpitations, and edema, Respiratory: Negative for shortness of breath, cough, wheezing, and pleuritic chest pain, Back: Negative for injury and pain, : Negative for injury, bleeding, discharge, and swelling, MS/Extremity: Negative for injury and deformity, Skin: Negative for injury, rash, and discoloration. Abdomen/GI: Positive for nausea. Neuro: Positive for headache. Exam: 01:48 Constitutional: This is a well developed, well nourished patient who is awake, alert, snw and in no acute distress. Head/Face: Normocephalic, atraumatic. Eyes: Pupils equal round and reactive to light, extra-ocular motions intact. Lids and lashes normal. Conjunctiva and sclera are non-icteric and not injected. Cornea within normal limits. Periorbital areas with no swelling, redness, or edema. ENT: Nares patent. No nasal discharge, no septal abnormalities noted. Tympanic membranes are normal and external auditory canals are clear. Oropharynx with no redness, swelling, or masses, exudates, or evidence of obstruction, uvula midline. Mucous membranes moist. Neck: Trachea midline, no thyromegaly or masses palpated, and no cervical lymphadenopathy. Supple, full range of motion without nuchal rigidity, or vertebral point tenderness. No Meningismus. Chest/axilla: Normal chest wall appearance and motion. Nontender with no deformity. No lesions are appreciated. Cardiovascular: Regular rate and rhythm with a normal S1 and S2. No gallops, murmurs, or rubs. Normal PMI, no JVD. No pulse deficits. Respiratory: Lungs have equal breath sounds bilaterally, clear to auscultation and percussion. No rales, rhonchi or wheezes noted. No increased work of breathing, no retractions or nasal flaring. Back: No spinal tenderness. No costovertebral tenderness. Full range of motion. Skin: Warm, dry with normal turgor. Normal color with no rashes, no lesions, and no evidence of cellulitis. MS/ Extremity: Pulses equal, no cyanosis. Neurovascular intact. Full, normal range of motion. Psych: Awake, alert, with orientation to person, place and time. Behavior, mood, and affect are within normal limits. 01:48 Neuro: Orientation: is normal, Mentation: is normal, Memory: is normal, Sensation: is normal, seizure activity, is not displayed by the patient. Vital Signs: 02/15 23:53 BP 125 / 90; Pulse 69; Resp 16; Temp 97.8; Pulse Ox 100% ; Weight 77.11 kg; Height 5 mw ft. 6 in. (167.64 cm); Pain 10/10; 02/16 01:33 BP 102 / 71; Pulse 62; Resp 18; Pulse Ox 98% on R/A; la1 02/15 23:53 Body Mass Index 27.44 (77.11 kg, 167.64 cm) mw [place] Coma Score: 01:49 Eye Response: spontaneous(4). Verbal Response: oriented(5). Motor Response: obeys snw commands(6). Total: 15. MDM: 02/15 23:58 Patient medically screened. snw 02/16 01:49 Data reviewed: vital signs, nurses notes. Data interpreted: Pulse oximetry: on room air snw is 98 %. Interpretation: normal. Counseling: I had a detailed discussion with the patient and/or guardian regarding: the historical points, exam findings, and any diagnostic results supporting the discharge/admit diagnosis, lab results, the need for outpatient follow up, to return to the emergency department if symptoms worsen or persist or if there are any questions or concerns that arise at home. Response to treatment: the patient's symptoms have markedly improved after treatment. Special discussion: Based on the history and exam findings, there is no indication for further emergent testing or inpatient evaluation. I discussed with the patient/guardian the need to see the primary care provider for further evaluation of the symptoms. 02/15 23:57 Order name: CBC with Diff; Complete Time: 00:55 snw 02/15 23:57 Order name: Chem 7; Complete Time: 01:33 snw 02/15 23:58 Order name: Urine Drug Screen snw Administered Medications: 00:20 Drug: NS 0.9% 1000 ml Route: IV; Rate: 1 bolus; Site: right antecubital; la1 01:34 Follow up: IV Status: Completed infusion la1 00:20 Drug: TORadol 30 mg Route: IVP; Site: right antecubital; la1 01:34 Follow up: Response: No adverse reaction; Pain is decreased la1 00:20 Drug: Benadryl 25 mg Route: IVP; Site: right antecubital; la1 01:34 Follow up: Response: No adverse reaction la1 00:25 Drug: Zofran 4 mg Route: IVP; Site: right antecubital; la1 01:34 Follow up: Response: No adverse reaction la1 Disposition: 02:59 Co-signature as Attending Physician, Diego Rowan MD. Disposition: 02/16/19 01:45 Discharged to Home. Impression: Headache. - Condition is Stable. - Discharge Instructions: Migraine Headache, Rehydration, Adult. - Prescriptions for Zofran 4 mg Oral Tablet - take 1 tablet by ORAL route every 12 hours As needed; 20 tablet. Zyrtec 10 mg Oral Tablet - take 1 tablet by ORAL route once daily As needed; 20 tablet. Diclofenac Sodium 75 mg Oral Tablet Sustained Release - take 1 tablet by ORAL route 2 times per day; 30 tablet. orphenadrine citrate 100 mg Oral Tablet Sustained Release - take 1 tablet by ORAL route 2 times per day As needed; 20 tablet. - Work release form, Medication Reconciliation Form, Thank You Letter, Antibiotic Education, Prescription Opioid Use form. - Follow up: Private Physician; When: 2 - 3 days; Reason: Recheck today's complaints, Continuance of care, Re-evaluation by your physician. Follow up: Emergency Department; When: As needed; Reason: Worsening of condition. Signatures: Dispatcher [employer] EDMS Alice Lopez RN RN Tracie Loza, TUBE WASHER-C TUBE WASHER-CsnSuleiman Blackburn RN RN [email or web address] Diego Rowan MD MD Corrections: (The following items were deleted from the chart) 01:46 02/15 23:58 [facility] 02/16 01:46 02/15 23:58 Urine Dipstick-Ancillary ordered. [place] [id number] 02/16 02:11 01:45 02/16/2019 01:45 Discharged to Home. Impression: Headache. Condition is Stable. la1 Forms are Medication Reconciliation Form, Thank You Letter, Antibiotic Education, Prescription Opioid Use. Follow up: Private Physician; When: 2 - 3 days; Reason: Recheck today's complaints, Continuance of care, Re-evaluation by your physician. Follow up: Emergency Department; When: As needed; Reason: Worsening of condition. snw
--- NOTE | 2019-02-16 01:46 | ER ---
Nurse's Notes [facility] Name: Yue Desir Age: 43 yrs Sex: Female : 1975 Arrival Date: 02/15/2019 Time: 23:48 Bed 27 Private MD: Diagnosis: Headache Presentation: 02/15 23:49 Presenting complaint: Patient states: Headache and nausea began this morning. Patient mw states has a history of migraines, but this one is worse than normal. Transition of care: patient was not received from another setting of care. Onset of symptoms was February 15, 2019 at 08:00. Initial Sepsis Screen: Does the patient meet any 2 criteria?. Care prior to arrival: None. Medication(s) given: Motrin, 800 mg, at 17:45pm today. 23:49 Method Of Arrival: EMS: BASF 23:49 Acuity: FREDRICK 4 23:49 Risk Assessment: Do you want to hurt yourself or someone else? Patient reports no mw desire to harm self or others. Initial Sepsis Screen: Does the patient meet any 2 criteria? No. Patient's initial sepsis screen is negative. Triage Assessment: 23:53 General: Appears uncomfortable, Behavior is calm, cooperative. Pain: Complains of pain mw in Head Pain does not radiate. Pain currently is 10 out of 10 on a pain scale. Neuro: No deficits noted. 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 - Social history:: Smoking status: Patient/guardian denies using tobacco, never smoked. - Ebola Screening: : Patient negative for fever greater than or equal to 101.5 degrees Fahrenheit, and additional compatible Ebola Virus Disease symptoms. Screenin:53 Abuse screen: Denies threats or abuse. Nutritional screening: No deficits noted. la1 Tuberculosis screening: No symptoms or risk factors identified. Fall Risk None identified. Assessment: 23:52 General: Appears in no apparent distress. Behavior is calm, cooperative. Pain:. Neuro: la1 Level of Consciousness is awake, alert, obeys commands, Oriented to person, place, time, situation, Customer Relations Consultant are equal bilaterally Moves all extremities. Full function Speech is normal, Facial symmetry appears normal, Pupils are PERRLA. Cardiovascular: Capillary refill < 3 seconds Patient's skin is warm and dry. Respiratory: Airway is patent Respiratory effort is even, unlabored, Respiratory pattern is regular, symmetrical. GI: No signs and/or symptoms were reported involving the gastrointestinal system. : No signs and/or symptoms were reported regarding the genitourinary system. 02/16 01:33 Reassessment: Patient appears in no apparent distress at this time. No changes from la1 previously documented assessment. Patient and/or family updated on plan of care and expected duration. Pain level reassessed. Patient is alert, oriented x 3, equal unlabored respirations, skin warm/dry/pink. Vital Signs: 02/15 23:53 BP 125 / 90; Pulse 69; Resp 16; Temp 97.8; Pulse Ox 100% ; Weight 77.11 kg; Height 5 mw ft. 6 in. (167.64 cm); Pain 10/10; 02/16 01:33 BP 102 / 71; Pulse 62; Resp 18; Pulse Ox 98% on R/A; la1 02/15 23:53 Body Mass Index 27.44 (77.11 kg, 167.64 cm) Jd Coma Score: 01:49 Eye Response: spontaneous(4). Verbal Response: oriented(5). Motor Response: obeys snw commands(6). Total: 15. ED Course: 02/15 23:48 Patient arrived in ED. la1 23:51 Triage completed. mw 23:52 Suleiman Muro, RN is Primary Nurse. la1 23:53 Bed in low position. Call light in reach. Side rails up X 1. Pulse ox on. NIBP on. la1 23:53 Arm band placed on right wrist. Patient placed in an exam room, Patient notified of mw wait time. 23:56 Trac[facility]C [facility] snw 23:56 Diego Rowan MD is Attending Physician. snw 02/16 00:20 Inserted saline lock: 22 gauge in right antecubital area, using aseptic technique. la1 Blood collected. 02:10 No provider procedures requiring assistance completed. IV discontinued, intact, la1 bleeding controlled, No redness/swelling at site. Pressure dressing applied. Administered Medications: 00:20 Drug: NS 0.9% 1000 ml Route: IV; Rate: 1 bolus; Site: right antecubital; la1 01:34 Follow up: IV Status: Completed infusion la1 00:20 Drug: TORadol 30 mg Route: IVP; Site: right antecubital; la1 01:34 Follow up: Response: No adverse reaction; Pain is decreased la1 00:20 Drug: Benadryl 25 mg Route: IVP; Site: right antecubital; la1 01:34 Follow up: Response: No adverse reaction la1 00:25 Drug: Zofran 4 mg Route: IVP; Site: right antecubital; la1 01:34 Follow up: Response: No adverse reaction la1 Outcome: 01:45 Discharge ordered by . snjeanie 02:10 Discharged to home ambulatory, via wheelchair. la1 02:10 Condition: stable 02:10 Discharge instructions given to patient, Instructed on discharge instructions, follow up and referral plans. medication usage, Demonstrated understanding of instructions, follow-up care, medications, Prescriptions given X 4. 02:11 Patient left the ED. la1 Signatures: Alice Lopez, RN RN Tracie Loza, RECREATIONAL THERAPY AIDE-C RECREATIONAL THERAPY AIDE-Csnw Suleiman Muro RN RN la1
== END 2019-02-16 02:11 | disposition home or self-care (01) ==
LOC: ER 23:47
DX: R51 Headache (principal); Z88.5 Allergy status to narcotic agent; Z88.8 Allergy status to other drugs, medicaments and biological substances; Z91.048 Other nonmedicinal substance allergy status
CPT/HCPCS: 36415; 80048; 85025; 96361; 96374; 96375; 99284; J2405; J7030

== ENCOUNTER 2019-06-15 07:17 | Emergency (ER) | payer OTHER, SELFPAY ==
--- OUTSIDE RECORDS SUMMARY | 2019-06-15 07:20 | XMS REPORT ---
:1975 [facility] Address [address] [place] [address] Dr. Herzog [address] [place] [id number] Care Team Providers Name Role Phone Unavailable Unavailable Unavailable Problems This patient has no known problems. Allergies, Adverse Reactions, Alerts This patient has no known allergies or adverse reactions. Medications This patient has no known medications.
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
[2019-06-15] MEDS ORDERED: LIDOCAINE 1% 20 ML MDV ONE (08:04)
--- NOTE | 2019-06-15 09:05 | ER ---
Nurse's Notes [facility] Name: Yue Desir Age: 43 yrs Sex: Female : 1975 Arrival Date: 06/15/2019 Time: 07:19 Bed 15 Private MD: Jax Tabor Diagnosis: Cutaneous abscess of right axilla Presentation: 06/15 07:25 Presenting complaint: Patient states: i have 2 abscesses on my R armpit for a week now hj and it looks like it started as an insect bite, its oozing now, reports of pain 8/10; reports fever and chills; been taking ibuprofen;. Transition of care: patient was not received from another setting of care. Onset of symptoms was June 15, 2019. Risk Assessment: Do you want to hurt yourself or someone else? Patient reports no desire to harm self or others. Initial Sepsis Screen: Does the patient meet any 2 criteria? Yes Does the patient have a suspected source of infection? Yes: Skin breakdown/wound. Care prior to arrival: None. 07:25 Method Of Arrival: Ambulatory 07:25 Acuity: FREDRICK 3 Triage Assessment: 07:29 General: Appears in no apparent distress. uncomfortable, Behavior is calm, cooperative, hj appropriate for age. Pain: Complains of pain in R armpit. 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 - Social history:: Smoking status: Patient/guardian denies using tobacco, Patient/guardian denies using alcohol. - Ebola Screening: : Patient negative for fever greater than or equal to 101.5 degrees Fahrenheit, and additional compatible Ebola Virus Disease symptoms Patient denies exposure to infectious person Patient denies travel to an Ebola-affected area in the 21 days before illness onset. Screenin:29 Abuse screen: Denies threats or abuse. Denies injuries from another. Nutritional hj screening: No deficits noted. Tuberculosis screening: No symptoms or risk factors identified. Fall Risk None identified. Assessment: 07:30 General: Appears in no apparent distress. uncomfortable, Behavior is calm, cooperative, hj appropriate for age. Pain: Complains of pain in R upper arm, armpit. Neuro: Level of Consciousness is awake, alert, obeys commands, Oriented to person, place, time, situation, Appropriate for age. Cardiovascular: Capillary refill < 3 seconds Patient's skin is warm and dry. Respiratory: Airway is patent Respiratory effort is even, unlabored, Respiratory pattern is regular, symmetrical. GI: No signs and/or symptoms were reported involving the gastrointestinal system. : No signs and/or symptoms were reported regarding the genitourinary system. EENT: No signs and/or symptoms were reported regarding the EENT system. Derm: Abscess located on R upper arm, armpit Reports. Musculoskeletal: No signs and/or symptoms reported regarding the musculoskeletal system. Vital Signs: 07:30 BP 105 / 74; Pulse 75; Resp 18; Temp 98.2(O); Pulse Ox 100% on R/A; Weight 79.38 kg; hj Height 5 ft. 6 in. (167.64 cm); Pain 8/10; 09:15 BP 110 / 78; Pulse 70; Resp 18; Pulse Ox 100% on R/A; hj 07:30 Body Mass Index 28.25 (79.38 kg, 167.64 cm) hj ED Course: 07:19 Patient arrived in ED. rg4 07:20 Jax Tabor MD is Private Physician. rg4 07:25 Homero Langley RN is Primary Nurse. hj 07:27 Triage completed. hj 07:28 Raj Small PA is PHCP. jr8 07:28 Cricket Lyon MD is Attending Physician. jr8 07:30 Arm band placed on left wrist. hj 07:30 Patient has correct armband on for positive identification. Placed in gown. Bed in low hj position. Call light in reach. Side rails up X 1. 09:13 No provider procedures requiring assistance completed. Patient did not have IV access hj during this emergency room visit. Administered Medications: 08:25 Drug: Lidocaine (1 %) 1 vials Volume: 20 ml; Route: Infiltration; hj 09:14 Follow up: Response: No adverse reaction hj Outcome: 09:03 Discharge ordered by MD. diaz 09:14 Discharged to home ambulatory. hj 09:14 Condition: stable 09:14 Discharge instructions given to patient, Instructed on discharge instructions, follow up and referral plans. medication usage, wound care, Demonstrated understanding of instructions, follow-up care, medications, Prescriptions given X 2. 09:15 Patient left the ED. Signatures: Raj Small PA PA jr8 Homero Langley RN RN Maggie Mcpherson rg4 Corrections: (The following items were deleted from the chart) 07:25 Presenting complaint: Patient states: i have an abscess for a week now and it hj looks like it started as an insect bite, its oozing now, reports of pain 07/11; reports fever and chills; been taking ibuprofen; hj
--- NOTE | 2019-06-15 09:05 | EDPHYS ---
Physician Documentation [facility] Name: Yue Desir Age: 43 yrs Sex: Female : 1975 Arrival Date: 06/15/2019 Time: 07:19 Bed 15 Private MD: Jax Tabor ED Physician Cricket Lyon HPI: 06/15 08:26 This 43 yrs old Female presents to ER via Ambulatory with complaints of jr8 Abscess. 08:26 The patient presents with an abscess of the right axilla. Description: The affected jr8 area is moderate sized, well demarcated, swollen, tense, warm. Onset: The symptoms/episode began/occurred gradually, 4 day(s) ago. Possible cause(s): unknown. Associated signs and symptoms: The patient has no apparent associated signs or symptoms. Modifying factors: the symptoms are alleviated by nothing, the symptoms are aggravated by movement, walking, pressure, squeezing the lesion and expressing the contents, touching. Severity of symptoms: At their worst the symptoms were moderate, in the emergency department the symptoms are unchanged. The patient has not experienced similar symptoms in the past. The patient has not recently seen a physician. 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 - Social history:: Smoking status: Patient/guardian denies using tobacco, Patient/guardian denies using alcohol. - Ebola Screening: : Patient negative for fever greater than or equal to 101.5 degrees Fahrenheit, and additional compatible Ebola Virus Disease symptoms Patient denies exposure to infectious person Patient denies travel to an Ebola-affected area in the 21 days before illness onset. ROS: 08:26 Eyes: Negative for injury, pain, redness, and discharge, ENT: Negative for injury, jr8 pain, and discharge, Neck: Negative for injury, pain, and swelling, Cardiovascular: Negative for chest pain, palpitations, and edema, Respiratory: Negative for shortness of breath, cough, wheezing, and pleuritic chest pain, Abdomen/GI: Negative for abdominal pain, nausea, vomiting, diarrhea, and constipation, Back: Negative for injury and pain, MS/Extremity: Negative for injury and deformity, Neuro: Negative for headache, weakness, numbness, tingling, and seizure. 08:26 Skin: Positive for abscess. Exam: 08:26 Constitutional: This is a well developed, well nourished patient who is awake, alert, jr8 and in no acute distress. Chest/axilla: Normal chest wall appearance and motion. Nontender with no deformity. No lesions are appreciated. Cardiovascular: Regular rate and rhythm with a normal S1 and S2. No gallops, murmurs, or rubs. Normal PMI, no JVD. No pulse deficits. Respiratory: Lungs have equal breath sounds bilaterally, clear to auscultation and percussion. No rales, rhonchi or wheezes noted. No increased work of breathing, no retractions or nasal flaring. Abdomen/GI: Soft, non-tender, with normal bowel sounds. No distension or tympany. No guarding or rebound. No evidence of tenderness throughout. Back: No spinal tenderness. No costovertebral tenderness. Full range of motion. MS/ Extremity: Pulses equal, no cyanosis. Neurovascular intact. Full, normal range of motion. Neuro: Awake and alert, GCS 15, oriented to person, place, time, and situation. Cranial nerves II-XII grossly intact. Motor strength 5/5 in all extremities. Sensory grossly intact. Cerebellar exam normal. Normal gait. 08:26 Skin: Two abscess noted to the right axilla. First one is approximately 1.5 cm in length with pointing and fluctuance. Second is about 2.5 cm in length with fluctuance and induration. No surrounding cellulitis or appreciated lymphadenitis. No active draining of abscesses at this time . Vital Signs: 07:30 BP 105 / 74; Pulse 75; Resp 18; Temp 98.2(O); Pulse Ox 100% on R/A; Weight 79.38 kg; hj Height 5 ft. 6 in. (167.64 cm); Pain 8/10; 09:15 BP 110 / 78; Pulse 70; Resp 18; Pulse Ox 100% on R/A; hj 07:30 Body Mass Index 28.25 (79.38 kg, 167.64 cm) Procedures: 08:54 I \T\ D: Incision and drainage was performed for an abscess of the right axilla. superior jr8 Prepped with hibiclenz. Anesthetized with 4 ml's 1% Lidocaine. Incised with #11 blade. Drained moderate amount purulent fluid. bloody fluid. Loculations removed. Abscess cavity explored. Packed with sterile gauze, Dressing: sterile 4x4 gauze, the patient tolerated the procedure well. 08:56 I \T\ D: Incision and drainage was performed for an abscess of the right axilla. inferior jr8 Prepped with hibiclenz. Anesthetized with 5 ml's 1% Lidocaine. Incised with #11 blade. Drained moderate amount purulent fluid. bloody fluid. Loculations removed. Abscess cavity explored. Packed with sterile gauze, Dressing: sterile 4x4 gauze, the patient tolerated the procedure well. MDM: 07:28 Patient medically screened. [facility] 08:30 Data reviewed: vital signs, nurses notes, and as a result, I will discharge patient. [facility] Data interpreted: Pulse oximetry: on room air is 100 %. Interpretation: normal. Counseling: I had a detailed discussion with the patient and/or guardian regarding: the historical points, exam findings, and any diagnostic results supporting the discharge/admit diagnosis, the need for outpatient follow up, a family practitioner, to return to the emergency department if symptoms worsen or persist or if there are any questions or concerns that arise at home. 06/15 07:43 Order name: I\T\D Setup; Complete Time: 07:47 [facility] Administered Medications: 08:25 Drug: Lidocaine (1 %) 1 vials Volume: 20 ml; Route: Infiltration; 09:14 Follow up: Response: No adverse reaction Disposition: 16:39 Co-signature as Attending Physician, Cricket Lyon MD I agree with the assessment and kdr plan of care. Disposition: 06/15/19 09:03 Discharged to Home. Impression: Cutaneous abscess of right axilla. - Condition is Stable. - Discharge Instructions: Skin Abscess, Incision and Drainage. - Prescriptions for Ibuprofen 800 mg Oral Tablet - take 1 tablet by ORAL route every 12 hours As needed take with food; 20 tablet. Bactrim DS 800- 160 mg Oral Tablet - take 1 tablet by ORAL route every 12 hours for 10 days; 20 tablet. - Work release form, Medication Reconciliation Form, Thank You Letter, Antibiotic Education, Prescription Opioid Use form. - Follow up: Private Physician; When: 48 Hours; Reason: Wound Recheck, Recheck today's complaints, Continuance of care, Re-evaluation by your physician. - Problem is new. - Symptoms have improved. Signatures: Cricket Lyon MD MD [facility] Raj Small PA PA jr8 Homero Langley RN RN Corrections: (The following items were deleted from the chart) 08:56 08:54 I \T\ D: Incision and drainage was performed for an abscess of the right axilla. jr8 superior Prepped with hibiclenz. Anesthetized with 4 ml's 1% Lidocaine. Incised with #11 blade. Drained moderate amount purulent fluid. bloody fluid. Loculations removed. Abscess cavity explored. Packed with sterile gauze, Dressing: sterile 4x4 gauze, the patient tolerated the procedure well, jr8 09:15 09:03 06/15/2019 09:03 Discharged to Home. Impression: Cutaneous abscess of right hj axilla. Condition is Stable. Discharge Instructions: Skin Abscess, Incision and Drainage. Prescriptions for Ibuprofen 800 mg Oral Tablet - take 1 tablet by ORAL route every 12 hours As needed take with food; 20 tablet, Bactrim DS 800-160 mg Oral Tablet - take 1 tablet by ORAL route every 12 hours for 10 days; 20 tablet. and Forms are Medication Reconciliation Form, Thank You Letter, Antibiotic Education, Prescription Opioid Use. Follow up: Private Physician; When: 48 Hours; Reason: Wound Recheck, Recheck today's complaints, Continuance of care, Re-evaluation by your physician. Problem is new. Symptoms have improved. jr8
[2019-06-15 09:29] VITALS: TEMP 98.2; O2SAT 100
[2019-06-15 09:31] VITALS: BP 110/78
== END 2019-06-15 09:15 | disposition home or self-care (01) ==
LOC: ER 07:17
PROC: 0J9D0ZZ Drainage of Right Upper Arm Subcutaneous Tissue and Fascia, Open Approach (ICD-10-PCS; principal; 2019-06-15)
DX: L02.411 Cutaneous abscess of right axilla (principal); Z88.5 Allergy status to narcotic agent; Z88.8 Allergy status to other drugs, medicaments and biological substances
CPT/HCPCS: 99283

== ENCOUNTER 2019-06-16 23:24 | Inpatient (IN) | payer SELFPAY ==
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
--- OUTSIDE RECORDS SUMMARY | 2019-06-16 23:26 | XMS REPORT ---
:1975 [facility] Address [address] [place] [address] Dr. Herzog [address] [place] [id number] Care Team Providers Name Role Phone Unavailable Unavailable Unavailable Problems This patient has no known problems. Allergies, Adverse Reactions, Alerts This patient has no known allergies or adverse reactions. Medications This patient has no known medications.
[2019-06-17] MEDS ORDERED: MEPERIDINE HCL 50 MG/ML AMP ONE (00:24)
[2019-06-17] MEDS ORDERED: MEPERIDINE HCL 25 MG/0.5 ML ONE (00:24)
[2019-06-17] MEDS ORDERED: ONDANSETRON 4 MG/2 ML VIAL ONE ×3 (00:24→14:46)
[2019-06-17] MEDS ORDERED: ONDANSETRON 4 MG/2 ML VIAL IV PRN (01:30)
[2019-06-17] MEDS ORDERED: VANCOMYCIN 1 GM/VIAL ONE (01:31)
[2019-06-17] MEDS ORDERED: NA CHLORIDE 0.9% 250 ML ONE (01:31)
[2019-06-17] MEDS ORDERED: NA CHLORIDE 0.9% 1,000 ML ONE (01:32)
[2019-06-17] MEDS ORDERED: CIPROFLOXACIN 400mg IV 400 MG/200 ML BAG IV ONE (01:32)
--- NOTE | 2019-06-17 01:37 | EDPHYS ---
Physician Documentation [facility] Name: Yue Desir Age: 43 yrs Sex: Female : 1975 Arrival Date: 06/16/2019 Time: 23:25 Bed 24 Private MD: Jax Tabor ED Physician Benton Markham HPI: 06/17 00:53 This 43 yrs old Female presents to ER via Ambulatory with complaints of pkl Abscess. 00:53 The patient presents with an abscess of the right axilla. Description: The affected pkl area is large, approximately 8 cm(s). Onset: The symptoms/episode began/occurred 1 week(s) ago. The patient has been recently seen at the [facility] Emergency Department, yesterday, Had I and D done. Now complained of increased pain and swelling right axilla.. 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 - Social history:: Smoking status: Patient/guardian denies using tobacco. - Ebola Screening: : No symptoms or risks identified at this time. ROS: 06/17 00:53 Eyes: Negative for injury, pain, redness, and discharge, ENT: Negative for injury, pkl pain, and discharge, Neck: Negative for injury, pain, and swelling, Cardiovascular: Negative for chest pain, palpitations, and edema, Respiratory: Negative for shortness of breath, cough, wheezing, and pleuritic chest pain, Abdomen/GI: Negative for abdominal pain, nausea, vomiting, diarrhea, and constipation, Back: Negative for injury and pain, : Negative for injury, bleeding, discharge, and swelling, MS/Extremity: Negative for injury and deformity. Skin: Positive for abscess, of the right axilla. Neuro: Negative for altered mental status. Exam: 00:53 Head/Face: Normocephalic, atraumatic. Eyes: Pupils equal round and reactive to light, pkl extra-ocular motions intact. Lids and lashes normal. Conjunctiva and sclera are non-icteric and not injected. Cornea within normal limits. Periorbital areas with no swelling, redness, or edema. ENT: Nares patent. No nasal discharge, no septal abnormalities noted. Tympanic membranes are normal and external auditory canals are clear. Oropharynx with no redness, swelling, or masses, exudates, or evidence of obstruction, uvula midline. Mucous membranes moist. Neck: Trachea midline, no thyromegaly or masses palpated, and no cervical lymphadenopathy. Supple, full range of motion without nuchal rigidity, or vertebral point tenderness. No Meningismus. Chest/axilla: Normal chest wall appearance and motion. Nontender with no deformity. No lesions are appreciated. Cardiovascular: Regular rate and rhythm with a normal S1 and S2. No gallops, murmurs, or rubs. Normal PMI, no JVD. No pulse deficits. Respiratory: Lungs have equal breath sounds bilaterally, clear to auscultation and percussion. No rales, rhonchi or wheezes noted. No increased work of breathing, no retractions or nasal flaring. Abdomen/GI: Soft, non-tender, with normal bowel sounds. No distension or tympany. No guarding or rebound. No evidence of tenderness throughout. Back: No spinal tenderness. No costovertebral tenderness. Full range of motion. Neuro: Awake and alert, GCS 15, oriented to person, place, time, and situation. Cranial nerves II-XII grossly intact. Motor strength 5/5 in all extremities. Sensory grossly intact. Cerebellar exam normal. Normal gait. 00:53 Skin: abscess, that is large, approximately 8 cm(s), of the right axilla. Vital Signs: 06/16 23:59 BP 129 / 76; Pulse 75; Resp 18; Temp 98.5(O); Pulse Ox 100% on R/A; Weight 79.38 kg; tl2 Height 5 ft. 7 in. (170.18 cm); Pain 09/10; 06/17 01:44 BP 122 / 79; Pulse 60; Resp 18; Pulse Ox 100% on R/A; mg2 06/16 23:59 Body Mass Index 27.41 (79.38 kg, 170.18 cm) tl2 MDM: 06/16 23:49 Patient medically screened. pkl 06/17 00:53 Data reviewed: vital signs, nurses notes, lab test result(s), EKG, radiologic studies, pkl plain films. 01:33 ED course: Talked to Dr. Estevez, admit to Hospitalist. pkl 06/17 00:53 Order name: CBC with Diff; Complete Time: 04:29 pkl 06/17 00:53 Order name: Chem 7; Complete Time: 04:29 pkl 06/17 00:53 Order name: XRAY CXR (1 view) pkl 06/17 00:53 Order name: EKG; Complete Time: 00:55 pkl 06/17 01:36 Order name: CONS Pharmacy Consult EDMS 06/17 01:36 Order name: CONS Physician Consult EDMS 06/17 01:36 Order name: NPO EDMS Administered Medications: Discontinued: Cipro 400 mg 200 ml IVPB once over 60 mins 00:17 Drug: Demerol 75 mg Route: IM; Site: right gluteus; mg2 01:24 Follow up: Response: No adverse reaction; Marked relief of symptoms mg2 00:17 Drug: Zofran 4 mg Route: IM; Site: right gluteus; mg2 01:24 Follow up: Response: No adverse reaction; Marked relief of symptoms mg2 01:23 Drug: NS 0.9% 1000 ml Route: IV; Rate: 125 ml/hr; Site: left antecubital; mg2 02:43 Follow up: Response: No adverse reaction; IV Status: Infusion continued upon admission; mg2 IV Intake: 125ml 01:23 Drug: Cipro 400 mg Volume: 200 ml; Route: IVPB; Infused Over: 60 mins; Site: left mg2 antecubital; 01:41 Drug: Benadryl 25 mg Route: IVP; Site: left antecubital; mg2 02:34 Follow up: Response: No adverse reaction; Marked relief of symptoms mg2 02:34 Drug: vancoMYCIN 1 grams Route: IVPB; Infused Over: 2 hrs; Site: left antecubital; mg2 02:44 Follow up: Response: No adverse reaction; IV Status: Infusion continued upon admission mg2 Disposition: 06/17/19 01:36 Hospitalization ordered by Keira Pool for Inpatient Admission. Preliminary diagnosis is Large abscess right axilla. - Bed requested for Telemetry/MedSurg (Inpatient). - Status is Inpatient Admission. mg2 - Condition is Stable. - Problem is new. - Symptoms are unchanged. UTI on Admission? No Signatures: Dispatcher [employer] EDMS Alice Lopez RN RN mw Benton Markham MD MD pkl Yesi Moyer RN RN bb Vidhi Saucedo RN RN tl2 Zain Giraldo RN RN mg2 Corrections: (The following items were deleted from the chart) 01:45 01:36 Hospitalization Ordered by Keira Pool MD for Inpatient Admission. Preliminary mw diagnosis is Large abscess right axilla. Bed requested for Telemetry/MedSurg (Inpatient). Status is Inpatient Admission. Condition is Stable. Problem is new. Symptoms are unchanged. UTI on Admission? No. pkl 01:45 01:45 06/17/2019 01:36 Hospitalization Ordered by Keira Pool MD for Inpatient mw Admission. Preliminary diagnosis is Large abscess right axilla. Bed requested for Telemetry/MedSurg (Inpatient). Status is Inpatient Admission. Condition is Stable. Problem is new. Symptoms are unchanged. UTI on Admission? No. mw 02:59 01:45 06/17/2019 01:36 Hospitalization Ordered by Keira Pool MD for Inpatient mg2 Admission. Preliminary diagnosis is Large abscess right axilla. Bed requested for Telemetry/MedSurg (Inpatient). Status is Inpatient Admission. Condition is Stable. Problem is new. Symptoms are unchanged. UTI on Admission? No. mw
--- NOTE | 2019-06-17 01:37 | ER ---
Nurse's Notes [facility] Name: Yue Desir Age: 43 yrs Sex: Female : 1975 Arrival Date: 06/16/2019 Time: 23:25 Bed 24 Private MD: Jax Tabor Diagnosis: Large abscess right axilla Presentation: 06/16 23:56 Presenting complaint: Patient states: Had abscess in right axilla drained yesterday in tl2 ER, pt states pain has increased, there is a foul odor and the packing is coming out. Transition of care: patient was not received from another setting of care. Onset of symptoms was June 16, 2019. Risk Assessment: Do you want to hurt yourself or someone else? Patient reports no desire to harm self or others. Initial Sepsis Screen: Does the patient meet any 2 criteria? No. Patient's initial sepsis screen is negative. Does the patient have a suspected source of infection? No. Patient's initial sepsis screen is negative. Care prior to arrival: None. 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 - Social history:: Smoking status: Patient/guardian denies using tobacco. - Ebola Screening: : No symptoms or risks identified at this time. Screenin/17 00:00 Abuse screen: Denies threats or abuse. Nutritional screening: No deficits noted. tl2 Tuberculosis screening: No symptoms or risk factors identified. Fall Risk None identified. Assessment: 00:18 General: Appears in no apparent distress. comfortable, Behavior is calm, cooperative. mg2 Pain: Complains of pain in right armpit Pain does not radiate. Pain currently is 10 out of 10 on a pain scale. Quality of pain is described as aching, Pain began gradually, Is intermittent. Neuro: Level of Consciousness is awake, alert, obeys commands, Oriented to person, place, time, situation. Cardiovascular: Capillary refill < 3 seconds Patient's skin is warm and dry. Respiratory: Airway is patent Respiratory effort is even, unlabored, Respiratory pattern is regular, symmetrical. GI: No signs and/or symptoms were reported involving the gastrointestinal system. : No signs and/or symptoms were reported regarding the genitourinary system. EENT: No signs and/or symptoms were reported regarding the EENT system. Derm: Abscess located on right armpit is half dollar sized, has purulent drainage, has foul odor. Musculoskeletal: Circulation, motion, and sensation intact. Capillary refill < 3 seconds. 01:36 Reassessment: pt states she is having an allergic reaction to the medication going to bb her left AC cipro discontinued, EDP notified, new orders received pt medicated see JAN. Pt states her left arm is itching and she has a rash. 01:42 Reassessment: dr Pool informed about the allergic reaction from ciprofloxacin. mg2 Vital Signs: 06/16 23:59 BP 129 / 76; Pulse 75; Resp 18; Temp 98.5(O); Pulse Ox 100% on R/A; Weight 79.38 kg; tl2 Height 5 ft. 7 in. (170.18 cm); Pain 10/10; 06/17 01:44 BP 122 / 79; Pulse 60; Resp 18; Pulse Ox 100% on R/A; mg2 06/16 23:59 Body Mass Index 27.41 (79.38 kg, 170.18 cm) tl2 ED Course: 06/16 23:25 Patient arrived in ED. am2 23:25 Jax Tabor MD is Private Physician. am2 23:46 Jackeline Bruner, YESSICA is Primary Nurse. ca1 23:49 Benton Markham MD is Attending Physician. pkl 23:59 Triage completed. tl2 23:59 Arm band placed on right wrist. tl2 06/17 00:00 Patient has correct armband on for positive identification. Placed in gown. Bed in low tl2 position. Call light in reach. Side rails up X 1. 01:11 XRAY CXR (1 view) In Process Unspecified. EDMS 01:20 Inserted saline lock: 20 gauge in left antecubital area, using aseptic technique. Blood ca1 collected. 01:35 Keira Pool MD is Hospitalizing Provider. pkl 02:17 No provider procedures requiring assistance completed. Patient admitted, IV remains in mg2 place. Administered Medications: Discontinued: Cipro 400 mg 200 ml IVPB once over 60 mins 00:17 Drug: Demerol 75 mg Route: IM; Site: right gluteus; mg2 01:24 Follow up: Response: No adverse reaction; Marked relief of symptoms mg2 00:17 Drug: Zofran 4 mg Route: IM; Site: right gluteus; mg2 01:24 Follow up: Response: No adverse reaction; Marked relief of symptoms mg2 01:23 Drug: NS 0.9% 1000 ml Route: IV; Rate: 125 ml/hr; Site: left antecubital; mg2 02:43 Follow up: Response: No adverse reaction; IV Status: Infusion continued upon admission; mg2 IV Intake: 125ml 01:23 Drug: Cipro 400 mg Volume: 200 ml; Route: IVPB; Infused Over: 60 mins; Site: left mg2 antecubital; 01:41 Drug: Benadryl 25 mg Route: IVP; Site: left antecubital; mg2 02:34 Follow up: Response: No adverse reaction; Marked relief of symptoms mg2 02:34 Drug: vancoMYCIN 1 grams Route: IVPB; Infused Over: 2 hrs; Site: left antecubital; mg2 02:44 Follow up: Response: No adverse reaction; IV Status: Infusion continued upon admission mg2 Intake: 02:43 IV: 125ml; Total: 125ml. mg2 Outcome: 01:36 Decision to Hospitalize by Provider. pkl 02:17 Admitted to Tele accompanied by nurse, via wheelchair, room 429, with chart, Report mg2 called to YESSICA Barahona 02:17 Condition: good 02:17 Instructed on the need for admit, Demonstrated understanding of instructions. 02:59 Patient left the ED. mg2 Signatures: Dispatcher [employer] EDBenton Pete MD MD pkl Yesi Moyer RN RN bb Vidhi Saucedo RN RN tl2 Patricia Henderson am2 Zain Giraldo RN RN mg2 Jackeline Bruner RN RN ca1 Corrections: (The following items were deleted from the chart) 01:20 00:20 Patient did not have IV access during this emergency room visit. mg2 ca1
[2019-06-17 01:40] LABS: Absolute Lymphocytes (CBC) 1.6 K/uL (0.7-4.9); Basophils % 0.3 % (0-1.3); Hematocrit 35.9 % (36.0-45.0); Lymphocytes % 17.6 % (15.3-44.8); MPV 8.1 fL (7.6-11.3); Monocytes % 8.8 % (3.3-12.3); RBC Red Blood Cell Count 3.89 M/uL (3.86-4.86)
[2019-06-17 01:49] LABS: Potassium 3.4 mmol/L (3.5-5.1)
[2019-06-17] MEDS ORDERED: DIPHENHYDRAMINE 50 MG/ML VIAL ONE (01:54)
[2019-06-17] MEDS: NA CHLORIDE 0.9% 1,000 ML IV SCH ×3 (02:00→15:11)
[2019-06-17] MEDS: VANCOMYCIN 1.5 GM in NA CHLORIDE 0.9% 500 ML IVPB SCH ×2 (03:00→15:12)
[2019-06-17 03:56] VITALS: BMI 28.5
[2019-06-17] MEDS ORDERED: PIPER/TAZO/NS 3.375gm 3.375 GM/100 ML BAG IVPB SCH (06:00)
[2019-06-17] MEDS: FENTANYL CITR 100 MCG/2 ML IV PRN ×3 (06:05→22:40)
--- NOTE | 2019-06-17 08:01 | RAD REPORT ---
EXAM DESCRIPTION: Tristan Single View06/17/2019 1:13 am CLINICAL HISTORY: Chest pain/preop for right axillary abscess surgery COMPARISON: January 2019 FINDINGS: A small nodule within the right lung base unchanged probably a granuloma The lungs appear clear of acute infiltrate. The heart is normal size IMPRESSION: No acute abnormalities displayed
--- NOTE | 2019-06-17 08:26 | P.HP ---
Certification for Inpatient Patient admitted to: Inpatient With expected LOS: >2 Midnights Patient will require the following post-hospital care: None Practitioner: I am a practitioner with admitting privileges, knowledge of patient current condition, hospital course, and medical plan of care. Services: Services provided to patient in accordance with Admission requirements found in Title 42 Section 412.3 of the Code of Federal Regulations Patient History Date of Service: 06/17/19 Reason for admission: Axillary abscess History of Present Illness: Patient is a 43-year-old female who came into the hospital with an axillary abscess. Patient had an incision and debridement performed 24 hr ago. However the abscess has worsened. Patient will need admission for surgical evaluation and surgical debridement. Patient will get started on IV antibiotics. Patient has never had anything like this happen before. Patient denies any significant medical history. No diabetes. Has not done anything out of the ordinary. Will continue with IV antibiotics and see how patient gets treated. 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 moist/pink, EOMI, Sclerae nonicteric Neck: Supple, 2+ carotid pulse no bruit, No LAD, Without JVD or thyroid abnormality Respiratory: Clear to auscultation bilaterally, Normal air movement Cardiovascular: Regular rate/rhythm, Normal S1 S2, No murmurs Gastrointestinal: Normal bowel sounds, Soft and benign, Non-distended, No tenderness Musculoskeletal: No clubbing, No swelling, No tenderness Integumentary: No rashes Neurological: Normal gait, Normal speech, Normal strength at 5/5 x4 extr, Normal tone, Sensation intact, Cranial nerves 3-12 intact, Normal affect Lymphatics: No axilla or inguinal lymphadenopathy - Studies Laboratory Data (last 24 hrs) 06/17/19 01:13: Sodium 140, Potassium 3.4 L, BUN 5 L, Creatinine 0.78, Glucose 120 H 06/17/19 01:13: WBC 9.2, Hgb 12.6, Hct 35.9 L, Plt Count 249 Assessment & Plan - Problems (Diagnosis) (1) Axillary abscess Current Visit: Yes Status: Acute - Plan 1. Continue with IV antibiotic 2. Continue with local wound care 3. Surgical consultation 4. Gentle IV hydration 5. Monitor CBC 6. Strict blood sugar monitoring 7. Pain control 8. GI and DVT prophylaxis Discharge Plan: Home Plan to discharge in: Greater than 2 days - Advance Directives Does patient have a Living Will: No Does patient have a Durable POA for Healthcare: No - Code Status/Comfort Care Code Status Assessed: Yes Code Status: Full Code Critical Care: No Time Spent Managing PTS Care (In Minutes): 40
[2019-06-17] MEDS: PIPER/TAZO/NS 3.375gm 3.375 GM/100 ML BAG IVPB SCH ×2 (08:42→17:48)
[2019-06-17 08:53] LABS: Urine Appearance CLOUDY; Urine Bilirubin NEGATIVE (NEG); Urine Blood 2+ (NEG); Urine Color YELLOW; Urine Glucose NEGATIVE (NEG); Urine Protein NEGATIVE (NEG); Urine Urobilinogen 0.2 mg/dL (0.2-1.0)
[2019-06-17 08:54] LABS: Urine Microscopic Reflex ORDER UMIC
[2019-06-17 08:59] LABS: Urine Bacteria <20 /HPF (<20); Urine Culture Reflex Order NOT NEEDED
[2019-06-17] MEDS ORDERED: MIDAZOLAM HCL 2 MG/2 ML INJ ONE ×2 (13:34→13:40)
[2019-06-17] MEDS ORDERED: FENTANYL CITR 100 MCG/2 ML ONE (13:40)
[2019-06-17] MEDS ORDERED: LIDOCAINE 1% MPF 5 ML VIAL ONE (13:40)
[2019-06-17] MEDS ORDERED: PROPOFOL 200 MG/20 ML VIAL IV ONE (13:40)
--- NOTE | 2019-06-17 13:56 | P.BOP ---
Preoperative diagnosis: right axillary complex abscess and cellulitis Postoperative diagnosis: same Primary procedure: Incision and drainage complex right axillary complex abscess [id number] Estimated blood loss: <10cc Specimen: culture and tissue Findings: multiloculated Anesthesia: General Complications: None Transferred to: Recovery Room Condition: Good
[2019-06-17] MEDS ORDERED: KETOROLAC 30 MG/ML INJ ONE (14:08)
[2019-06-17] MEDS ORDERED: METOCLOPRAMIDE 10 MG/2mL INJ ONE (14:46)
[2019-06-17] MEDS: DIPHENHYDRAMINE 50 MG/ML VIAL IV PRN (22:40)
[2019-06-18] MEDS: PIPER/TAZO/NS 3.375gm 3.375 GM/100 ML BAG IVPB SCH ×2 (00:30→08:44)
[2019-06-18] MEDS: VANCOMYCIN 1.5 GM in NA CHLORIDE 0.9% 500 ML IVPB SCH (03:56)
[2019-06-18] MEDS: NA CHLORIDE 0.9% 1,000 ML IV SCH (04:40)
[2019-06-18] MEDS: FENTANYL CITR 100 MCG/2 ML IV PRN ×2 (04:40→08:46)
--- NOTE | 2019-06-18 07:22 | EKG ---
Test Date: 2019-06-17 Test Time: 01:14:37 Gis Scientist: ANÍBAL MEASUREMENT RESULTS: Intervals: Rate: 58 NV: 158 QRSD: 84 QT: 418 QTc: 410 [place]: P: 70 NV: 158 QRS: 52 T: 53 INTERPRETIVE STATEMENTS: Sinus bradycardia with sinus arrhythmia Otherwise normal ECG Compared to ECG 01/22/2018 07:26:43 No significant changes Electronically Signed On 06-18-19 07:20:53 CDT by Ayden Cuba
[2019-06-18] MEDS: DIPHENHYDRAMINE 50 MG/ML VIAL IV PRN (08:45)
[2019-06-18 10:01] VITALS: O2SAT 98
[2019-06-18] MEDS ORDERED: TRAMADOL HCL 50 MG TAB PO PRN (12:01)
[2019-06-18] MEDS ORDERED: CLINDAMYCIN HCL 150 MG CAP PO SCH (14:00)
--- NOTE | 2019-06-18 14:50 | P.SSS ---
Patient History Date of Service: 06/18/19 Reason for admission: Axillary abscess History of Present Illness: Patient is a 43-year-old female who came into the hospital with an axillary abscess. Patient had an incision and debridement performed 24 hr ago. However the abscess has worsened. Patient will need admission for surgical evaluation and surgical debridement. Patient will get started on IV antibiotics. Patient has never had anything like this happen before. Patient denies any significant medical history. No diabetes. Has not done anything out of the ordinary. Will continue with IV antibiotics and see how patient gets treated. Allergies carbamazepine [From Tegretol] Allergy (Verified 06/17/19 04:13) Unknown hydrocodone Allergy (Verified 06/17/19 04:13) Unknown iodine Allergy (Verified 06/17/19 04:13) Unknown phenytoin [From Dilantin] Allergy (Verified 06/17/19 04:13) Unknown promethazine [From Phenergan] Allergy (Verified 06/17/19 04:13) Unknown ciprofloxacin Adverse Reaction (Verified 06/17/19 04:13) Rash Home Medications: Clindamycin HCl 300 mg PO Q8H #42 capsule 06/18/19 Tramadol HCl [Ultram] 50 mg PO Q6H PRN #30 tablet 06/18/19 - Past Medical/Surgical History Has patient received pneumonia vaccine in the past: No Diabetic: No -: migraines -: 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 moist/pink, EOMI, Sclerae nonicteric Neck: Supple, 2+ carotid pulse no bruit, No LAD, Without JVD or thyroid abnormality Respiratory: Clear to auscultation bilaterally, Normal air movement Cardiovascular: Regular rate/rhythm, Normal S1 S2 Gastrointestinal: Normal bowel sounds, No tenderness Musculoskeletal: No tenderness Integumentary: No rashes Neurological: Normal gait, Normal speech, Normal strength at 5/5 x4 extr, Normal tone, Normal affect Lymphatics: No axilla or inguinal lymphadenopathy - Diagnosis (Problem(s)) (1) Axillary abscess Current Visit: Yes Status: Acute Treatment Summary: Overall pt remained stable while here hospital Pt was admitted to the hospital for failed outpt therapy for axillary abscess. Pt was started on IV abx and surgery was consulted. Pt had i&D and did well overall. Wound culture were collected. pt did well post procedure. pt was discharged home under stable condition on PO clindamycin and was asked to f.u with outpt surgery for wound packing. - Disposition Disposition: ROUTINE DISCHARGE Condition: GOOD Diet: Regular Activity: Ad troy
[2019-06-18 17:26] VITALS: BP 117/76; TEMP 97.8
--- NOTE | 2019-06-18 18:58 | P.PN ---
Subjective Date of Service: 06/18/19 Chief Complaint: Axillary abscess Subjective: Tolerating diet, Ambulating, Improving Physical Examination - Vital Signs Temperature: 97.8 F Blood Pressure: 117/76 Pulse: 63 Respirations: 20 Pulse Ox (%): 96 - Physical Exam General: Alert, In no apparent distress, Oriented x3, Cooperative HEENT: PERRLA, EOMI, Sclerae nonicteric Neck: Supple Respiratory: Normal air movement Cardiovascular: Normal pulses Musculoskeletal: Erythema (less), Tenderness (less) Integumentary: No rashes, No cyanosis Neurological: Normal speech Assessment And Plan - Plan wet to dry NS daily f/u next saturday at wound healing center may take a shower with dressing off cont po abx
--- NOTE | 2019-06-19 02:24 | OP ---
Date of Procedure: 06/17/2019 Surgeon: Homero Estevez MD Preoperative Diagnosis: Right axillary complex abscess with cellulitis. Postoperative Diagnosis: Right axillary complex abscess with cellulitis. Procedure: Incision and drainage of complex right axillary abscess, 15 x 12 cm. Specimens: Culture and tissue. Findings: Multiloculated abscess going into the chest area and also in the inner side of the arm. Anesthesia: General plus local. Indications: This is the case of a female who comes to us with cellulitis and abscess. Previously h ad an I and D in the ER, but was not able to drain the area properly, the abscess is getting worse an d cellulitis is present, so patient was admitted to the hospital and a surgical consult was obtained for surgical drainage of this abscess. The benefits and risks of drainage of the abscess with debrid ement fully explained to the patient, which include, but are not limited to infection, bleeding, rogerio ge to adjacent structures, anesthesia complication, nonhealing wound, UT, and even . She also u nderstands this may not relieve the symptoms. She might need more than one surgical intervention. S he understood, signed a consent. Description Of Procedure: Patient was brought to the operating room, placed in supine position, anes thesia was given without complication. The right axillary area was prepped and draped in the usual s terile fashion. An incision was made complex abscess goes from the lateral chest into the right inner arm and underneath the axilla connected to those 2 areas. So, incision was made ___ immediately purulent discharge was obtained. Multiple loculations were opened. All devitalized tissues were removed, cultures were obtained and then after obtaining hemostasis we proceeded to pack the area with wet to dry dressing. Patient tolerated the procedure well. Patient was sent to [facility] in stable condition. Patient will require wound care and antibiotics. WOLF/ROBER Voice ID: [id number] Report ID: [id number]
== END 2019-06-18 18:28 | disposition home or self-care (01) | DRG 603 ==
LOC: ER 23:24 → EEVIPCON 06-17 02:20 → ERHOLD 06-17 02:20 → 4TH 06-17 02:45
PROVIDERS: ADMIT Hospitalist; ATTEND Family Medicine
PROC: 0X940ZZ Drainage of Right Axilla, Open Approach (ICD-10-PCS; principal; 2019-06-17 14:00)
DX: L02.411 Cutaneous abscess of right axilla (principal); L03.111 Cellulitis of right axilla
CPT/HCPCS: 36415; 71045; 80048; 81003; 81015; 81025; 85025; 87070; 87075; 87077; 87186; 87205; 88304; 93005; 96361; 96372; 96374; 96375; 99285; J0744; J2175; J2250; J2405; J2543; J2704; J2765; J3010; J7030

== ENCOUNTER 2019-06-19 15:27 | Emergency (ER) | payer SELFPAY ==
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
--- OUTSIDE RECORDS SUMMARY | 2019-06-19 15:30 | XMS REPORT ---
:1975 [facility] Address [address] [place] [address] Dr. Herzog [address] [place] [id number] Care Team Providers Name Role Phone Unavailable Unavailable Unavailable Problems This patient has no known problems. Allergies, Adverse Reactions, Alerts This patient has no known allergies or adverse reactions. Medications This patient has no known medications.
[2019-06-19 16:57] LABS: Basophils % 0.4 % (0-1.3); Eosinophils % 3.4 % (0-4.4); Hematocrit 34.3 % (36.0-45.0); Lymphocytes % 16.8 % (15.3-44.8); MPV 7.7 fL (7.6-11.3); Monocytes % 9.8 % (3.3-12.3)
[2019-06-19] MEDS ORDERED: NA CHLORIDE 0.9% 1,000 ML ONE (16:57)
[2019-06-19] MEDS ORDERED: ONDANSETRON 4 MG/2 ML VIAL ONE (16:57)
[2019-06-19] MEDS ORDERED: FENTANYL CITR 100 MCG/2 ML ONE (17:09)
[2019-06-19 17:22] LABS: ALT/SGPT 17 U/L (12-78); AST/SGOT 12 U/L (15-37); Alkaline Phosphatase 56 U/L (45-117); BUN Blood Urea Nitrogen 4 mg/dL (7-18); Bicarbonate 32 mmol/L (21-32); Bilirubin Direct < 0.1 mg/dL (0-0.2); Bilirubin Total 0.3 mg/dL (0.2-1.0); Glucose Level 87 mg/dL (74-106); Magnesium 2.1 mg/dL (1.8-2.4); Potassium 3.5 mmol/L (3.5-5.1); Protein, Total 6.7 g/dL (6.4-8.2); Sodium Level 142 mmol/L (136-145); Troponin I < 0.02 ng/mL (0.0-0.045)
[2019-06-19 17:39] LABS: Urine Blood NEGATIVE (NEG); Urine Glucose NEGATIVE (NEG); Urine Protein NEGATIVE (NEG); Urine Specific Gravity 1.015 (1.005-1.030); Urine pH 8.5 (5.0-7.0)
--- NOTE | 2019-06-19 17:58 | ER ---
Nurse's Notes [facility] Name: Yue Desir Age: 43 yrs Sex: Female : 1975 Arrival Date: 06/19/2019 Time: 15:30 Bed 30 Private MD: Diagnosis: Other chest pain;Encounter for change or removal of surgical wound dressing Presentation: 06/19 15:41 Presenting complaint: Patient states: She had an I\T\D of an abscess on Saturday, she aj1 was discharged yesterday. Today she has had an increase in drainage from the abscess, now she is having chest pain, headache, pain to the surgical site, and dizziness. Transition of care: patient was not received from another setting of care. Onset of symptoms was June 19, 2019. Risk Assessment: Do you want to hurt yourself or someone else? Patient reports no desire to harm self or others. Initial Sepsis Screen: Does the patient meet any 2 criteria? No. Patient's initial sepsis screen is negative. Does the patient have a suspected source of infection? Yes: Skin breakdown/wound. Care prior to arrival: None. 15:41 Method Of Arrival: Wheelchair aj1 15:41 Acuity: FREDRICK 3 aj1 Triage Assessment: 15:43 General: Appears in no apparent distress. uncomfortable, Behavior is restless. Pain: aj1 Complains of pain in face, chest and right axilla Pain currently is 10 out of 10 on a pain scale. Neuro: Level of Consciousness is awake, alert, obeys commands. Cardiovascular: Patient's skin is warm and dry. Respiratory: Airway is patent Respiratory effort is even, unlabored, Respiratory pattern is regular, symmetrical. 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 - Social history:: Smoking status: Patient/guardian denies using tobacco. - Ebola Screening: : Patient denies travel to an Ebola-affected area in the 21 days before illness onset. Screenin:00 Abuse screen: Denies threats or abuse. Denies injuries from another. Nutritional ca1 screening: No deficits noted. Tuberculosis screening: No symptoms or risk factors identified. Fall Risk IV access (20 points). Assessment: 16:00 General: Appears in no apparent distress. uncomfortable, Behavior is calm, cooperative, ca1 appropriate for age. Pain: Complains of pain in right arm and chest and right axilla Pain currently is 10 out of 10 on a pain scale. Neuro: Level of Consciousness is awake, alert, obeys commands. Cardiovascular: Heart tones S1 S2 present Capillary refill < 3 seconds Patient's skin is warm and dry. Rhythm is sinus rhythm. Respiratory: Airway is patent Respiratory effort is even, unlabored, Respiratory pattern is regular, symmetrical, Breath sounds are clear bilaterally. GI: Abdomen is flat, non-distended, Bowel sounds present X 4 quads. Abd is soft and non tender X 4 quads. : No deficits noted. No signs and/or symptoms were reported regarding the genitourinary system. EENT: No deficits noted. No signs and/or symptoms were reported regarding the EENT system. Derm: Skin is healthy with good turgor, Skin is pink, warm \T\ dry. I and D wound. Dry and clean. 17:00 Reassessment: Patient appears in no apparent distress at this time. Patient and/or ca1 family updated on plan of care and expected duration. Pain level reassessed. Patient is alert, oriented x 3, equal unlabored respirations, skin warm/dry/pink. 18:00 Reassessment: Patient appears in no apparent distress at this time. Patient and/or ca1 family updated on plan of care and expected duration. Pain level reassessed. Patient is alert, oriented x 3, equal unlabored respirations, skin warm/dry/pink. Vital Signs: 15:43 BP 123 / 76; Pulse 75; Resp 18; Temp 97.9(O); Pulse Ox 100% on R/A; Weight 80.74 kg aj1 (R); Height 5 ft. 6 in. (167.64 cm) (R); Pain 10/10; 16:40 BP 134 / 71; Pulse 78; Resp 16 S; Pulse Ox 100% on R/A; ca1 18:00 BP 131 / 72; Pulse 72; Resp 16 S; Temp 98(O); Pulse Ox 98% on R/A; ca1 18:33 BP 123 / 82; Pulse 70; Resp 16 S; Temp 98.1(O); Pulse Ox 100% on R/A; ca1 15:43 Body Mass Index 28.73 (80.74 kg, 167.64 cm) aj1 ED Course: 15:30 Patient arrived in ED. rg4 15:42 Triage completed. aj1 15:43 Arm band placed on. aj1 15:46 Jackeline Bruner, RN is Primary Nurse. ca1 15:49 Willian Mejia PA is PHCP. cp 15:49 Diego Rowan MD is Attending Physician. cp 16:00 Patient has correct armband on for positive identification. Placed in gown. Bed in low ca1 position. Call light in reach. Side rails up X2. panel monitor on. Pulse ox on. NIBP on. Warm blanket given. 16:32 EKG done, by domestic technician. reviewed by Willian EVANGELISTA. dt2 16:40 No provider procedures requiring assistance completed. Inserted saline lock: 20 gauge ca1 in right antecubital area, using aseptic technique. Blood collected. 17:45 Wound care: to I and D site located on right axilla was cleaned with with Saline, ca1 irrigated with normal saline, dressed with 4X4s, Patient tolerated well. 17:56 Homero Estevez MD is Referral Physician. cp 18:33 IV discontinued, intact, bleeding controlled, No redness/swelling at site. Pressure ca1 dressing applied. Administered Medications: 16:44 Drug: fentaNYL (PF) 25 mcg Route: IVP; Site: left antecubital; ca1 18:00 Follow up: Response: No adverse reaction; Pain is decreased ca1 16:44 Drug: NS 0.9% 500 ml Route: IV; Rate: bolus; Site: left antecubital; ca1 17:15 Follow up: Urine output 230 ml; Response: No adverse reaction; IV Status: Completed ca1 infusion 16:49 Drug: Zofran 4 mg Route: IVP; Site: left antecubital; ca1 18:00 Follow up: Response: No adverse reaction; Nausea is decreased ca1 17:15 Drug: NS 0.9% 500 ml Route: IV; Rate: 125 ml/hr; Site: left antecubital; ca1 18:20 Follow up: IV Status: Order to discontinue infusion ca1 Output: 17:15 Urine: 230ml; Total: 230ml. ca1 Outcome: 17:58 Discharge ordered by . cp 18:33 Discharged to home ambulatory. ca1 18:33 Condition: stable 18:33 Discharge instructions given to patient, Instructed on discharge instructions, follow up and referral plans. medication usage, wound care, Demonstrated understanding of instructions, follow-up care, medications, wound care, Prescriptions given X 1. 18:35 Patient left the ED. ca1 Signatures: Kira Andrews, RN RN aj1 Willian Mejia PA PA Maggie Jimenez rg4 Dilia Minaya dt2 Jackeline Bruner RN RN ca1 Corrections: (The following items were deleted from the chart) 18:26 18:17 Wound care: to ca1 ca1 18:27 18:26 Patient has correct armband on for positive identification. Placed in gown. Bed ca1 in low position. Call light in reach. Side rails up X2. ca1 18:27 18:26 panel monitor on. Pulse ox on. NIBP on. ca1 ca1 18:27 18:26 Warm blanket given. ca1 ca1 18:30 16:00 Derm: Skin is healthy with good turgor, Skin is pink, warm \T\ dry. ca1 ca1
--- NOTE | 2019-06-19 17:59 | EDPHYS ---
Physician Documentation [facility] Name: Yue Desir Age: 43 yrs Sex: Female : 1975 Arrival Date: 06/19/2019 Time: 15:30 Bed 30 Private MD: ED Physician Diego Rowan HPI: 06/19 16:00 This 43 yrs old Female presents to ER via Wheelchair with complaints of Post cp Surgical Pain. 16:00 Patient presents to ED for recheck of: abscess. cp 16:00 The affected area is on the right axilla. Previous treatment: the care was rendered at [facility], Treatment type: The patient's original treatment included inpatient I\T\D. patient reports she was released from hospital yesterday after having I\T\D performed by DR Estevez. The patient or guardian reports chest pain that is located primarily in the anterior chest wall, right. Onset: today. 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 - Social history:: Smoking status: Patient/guardian denies using tobacco. - Ebola Screening: : Patient denies travel to an Ebola-affected area in the 21 days before illness onset. ROS: 16:05 Constitutional: Negative for body aches, chills, fever, poor PO intake. cp 16:05 Eyes: Negative for injury, pain, redness, and discharge. cp 16:05 ENT: Negative for drainage from ear(s), ear pain, sore throat, difficulty swallowing, difficulty handling secretions. 16:05 Cardiovascular: Positive for chest pain, Negative for edema, palpitations. 16:05 Respiratory: Negative for cough, shortness of breath, wheezing. 16:05 Abdomen/GI: Negative for abdominal pain, nausea, vomiting, diarrhea, constipation. 16:05 : Negative for urinary symptoms. 16:05 MS/extremity: Positive for pain, of the chest and right axilla, Negative for paresthesias. 16:05 Neuro: Negative for altered mental status, headache, syncope, weakness. 16:05 All other systems are negative. Exam: 16:10 Constitutional: The patient appears in no acute distress, alert, awake, cp non-diaphoretic, non-toxic, well developed, well nourished, uncomfortable. 16:10 Head/Face: Normocephalic, atraumatic. cp 16:10 Eyes: Periorbital structures: appear normal, Conjunctiva: normal, no exudate, no injection, Sclera: no appreciated abnormality, Lids and lashes: appear normal, bilaterally. 16:10 ENT: External ear(s): are unremarkable, Nose: is normal, Mouth: Lips: moist, Oral mucosa: moist, Posterior pharynx: Airway: normal. 16:10 Neck: ROM/movement: is normal, is supple, without pain, no range of motions limitations, no nuchal rigidity. 16:10 Chest/axilla: Inspection: normal, Palpation: crepitus, is not appreciated, tenderness, that is moderate, of the anterior aspect of right upper chest. 16:10 Cardiovascular: Rate: normal, Rhythm: regular, Pulses: Pulses are 2+ in right radial artery and left radial artery. Edema: is not appreciated, JVD: is not appreciated. 16:10 Respiratory: the patient does not display signs of respiratory distress, Respirations: normal, no use of accessory muscles, no retractions, no splinting, no tachypnea, labored breathing, is not present. 16:10 Abdomen/GI: Inspection: abdomen appears normal, Palpation: abdomen is soft and non-tender, in all quadrants, rebound tenderness, is not appreciated, voluntary guarding, is not appreciated, involuntary guarding, is not appreciated. 16:10 Back: pain, is absent, ROM is normal. 16:10 Skin: Wound recheck: Abscess: decreased discharge, decreased erythema, the packing is in place. 16:10 Neuro: Orientation: to person, place \T\ time. Mentation: is normal, Cerebellar function: is grossly normal, Motor: moves all fours, strength is normal, Sensation: is normal. 16:20 ECG was reviewed by the Attending Physician. cp Vital Signs: 15:43 BP 123 / 76; Pulse 75; Resp 18; Temp 97.9(O); Pulse Ox 100% on R/A; Weight 80.74 kg aj1 (R); Height 5 ft. 6 in. (167.64 cm) (R); Pain 10/10; 16:40 BP 134 / 71; Pulse 78; Resp 16 S; Pulse Ox 100% on R/A; ca1 18:00 BP 131 / 72; Pulse 72; Resp 16 S; Temp 98(O); Pulse Ox 98% on R/A; ca1 18:33 BP 123 / 82; Pulse 70; Resp 16 S; Temp 98.1(O); Pulse Ox 100% on R/A; ca1 15:43 Body Mass Index 28.73 (80.74 kg, 167.64 cm) aj1 MDM: 15:49 Patient medically screened. cp 17:58 The patient was not given aspirin in the Emergency Department. cp 17:58 Differential diagnosis: abnormal EKG, acute myocardial infarction, acute pericarditis, cp chest wall pain, costochondritis, pleurisy, pneumonia, pneumothorax. Data reviewed: vital signs, nurses notes, lab test result(s), EKG, and as a result, I will discharge patient. Test interpretation: by ED physician or midlevel provider: ECG. Counseling: I had a detailed discussion with the patient and/or guardian regarding: the historical points, exam findings, and any diagnostic results supporting the discharge/admit diagnosis, lab results, radiology results, the need for outpatient follow up, a general surgeon, to return to the emergency department if symptoms worsen or persist or if there are any questions or concerns that arise at home. Response to treatment: the patient's symptoms have markedly improved after treatment, VSS. Pain improved with meds. EKG and troponin normal. Chest pain most likely from recent surgery. Will discharge to home for continued monitoring. 06/19 16:09 Order name: Procalcitonin; Complete Time: 17:29 cp 06/19 16:09 Order name: Lactate; Complete Time: 17:29 cp 06/19 16:09 Order name: CBC with Diff; Complete Time: 17:29 cp 06/19 17:29 Interpretation: Normal except: WBC 6.2; RBC 3.70; HGB 11.9; HCT 34.3. cp 06/19 16:09 Order name: BMP; Complete Time: 17:29 cp 06/19 17:29 Interpretation: Normal except: BUN 4; GFR 74; CA 8.3. cp / 16:09 Order name: Troponin I; Complete Time: 17:29 cp 06/19 16:09 Order name: Magnesium; Complete Time: 17:29 cp 06/19 16:09 Order name: EKG; Complete Time: 16:31 cp 06/19 16:09 Order name: LFT's; Complete Time: 17:29 cp 06/19 17:51 Interpretation: Normal except: AST 12; ALB 3.0; GLOB 3.7; A/G 0.8. cp / 17:14 Order name: Urine Dipstick--Ancillary (enter results); Complete Time: 17:51 ms 06/19 17:51 Interpretation: Normal except: UPH 8.5. cp 06/19 17:14 Order name: Urine --Ancillary (enter results); Complete Time: 17:51 ms 06/19 16:09 Order name: Urine Dipstick-Ancillary (obtain specimen); Complete Time: 17:09 cp 06/19 16:09 Order name: Urine Test (obtain specimen); Complete Time: 17:09 cp 06/19 16:09 Order name: EKG - Nurse/Tech; Complete Time: 16:49 cp EC:20 Rate is 64 beats/min. Rhythm is regular. TN interval is normal. QRS interval is normal. cp QT interval is normal. Interpreted by me. Reviewed by me. Administered Medications: 16:44 Drug: fentaNYL (PF) 25 mcg Route: IVP; Site: left antecubital; ca1 18:00 Follow up: Response: No adverse reaction; Pain is decreased ca1 16:44 Drug: NS 0.9% 500 ml Route: IV; Rate: bolus; Site: left antecubital; ca1 17:15 Follow up: Urine output 230 ml; Response: No adverse reaction; IV Status: Completed ca1 infusion 16:49 Drug: Zofran 4 mg Route: IVP; Site: left antecubital; ca1 18:00 Follow up: Response: No adverse reaction; Nausea is decreased ca1 17:15 Drug: NS 0.9% 500 ml Route: IV; Rate: 125 ml/hr; Site: left antecubital; ca1 18:20 Follow up: IV Status: Order to discontinue infusion ca1 Disposition: 06/20 18:14 Co-signature as Attending Physician, Diego Rowan MD. Disposition: 06/19/19 17:58 Discharged to Home. Impression: Other chest pain, Encounter for change or removal of surgical wound dressing. - Condition is Stable. - Discharge Instructions: Nonspecific Chest Pain, Wound Care, Incision and Drainage, Care After. - Prescriptions for Ibuprofen 800 mg Oral Tablet - take 1 tablet by ORAL route every 8 hours As needed take with food; 30 tablet. - Medication Reconciliation Form, Thank You Letter, Antibiotic Education, Prescription Opioid Use form. - Follow up: Homero Estevez MD; When: next week as scheduled; Reason: Wound Recheck. - Problem is an ongoing problem. - Symptoms have improved. Signatures: Dispatcher [employer] EDKira Gomes RN RN aj1 Willian Mejia PA PA cp Diego Rowan MD MD Acob, Jackeline RN RN ca1 Corrections: (The following items were deleted from the chart) 06/19 17:29 17:29 Normal except: BUN 4; GFR 74. cp cp 18:35 17:58 06/19/2019 17:58 Discharged to Home. Impression: Other chest pain; Encounter for ca1 change or removal of surgical wound dressing. Condition is Stable. Forms are Medication Reconciliation Form, Thank You Letter, Antibiotic Education, Prescription Opioid Use. Follow up: Homero Estevez; When: next week as scheduled; Reason: Wound Recheck. Problem is an ongoing problem. Symptoms have improved. cp
[2019-06-19 20:57] VITALS: BP 131/72; TEMP 98; O2SAT 98
--- NOTE | 2019-06-20 09:37 | EKG ---
Test Date: 2019-06-19 Test Time: 16:12:[address] [employer] [address] [employer] Law Clerk: URBAN MEASUREMENT RESULTS: Intervals: Rate: 64 SC: 154 QRSD: 82 QT: 400 QTc: 412 [place]: P: 69 SC: 154 QRS: 70 T: 72 INTERPRETIVE STATEMENTS: Sinus rhythm with marked sinus arrhythmia Otherwise normal ECG Compared to ECG 06/17/2019 01:14:37 Sinus bradycardia no longer present Electronically Signed On 06-20-19 09:35:47 CDT by Ayden [place]
== END 2019-06-19 18:35 | disposition home or self-care (01) ==
LOC: ER 15:27
DX: Z48.01 Encounter for change or removal of surgical wound dressing (principal); G40.909 Epilepsy, unspecified, not intractable, without status epilepticus; Z88.1 Allergy status to other antibiotic agents; Z88.5 Allergy status to narcotic agent; Z88.8 Allergy status to other drugs, medicaments and biological substances; Z91.048 Other nonmedicinal substance allergy status
CPT/HCPCS: 36415; 80048; 80076; 81003; 81025; 83605; 83735; 84145; 84484; 85025; 93005; 96361; 96374; 96375; 99285; J2405; J3010; J7030

== ENCOUNTER 2019-07-28 09:56 | Inpatient (IN) | payer OTHER, SELFPAY ==
--- OUTSIDE RECORDS SUMMARY | 2019-07-28 10:02 | XMS REPORT ---
:1975 [facility] Address [address] [place] [address] Dr. Herzog [address] [place] [id number] Care Team Providers Name Role Phone Unavailable Unavailable Unavailable Problems This patient has no known problems. Allergies, Adverse Reactions, Alerts This patient has no known allergies or adverse reactions. Medications This patient has no known medications.
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
[2019-07-28 11:19] LABS: Urine Blood 1+ (NEG); Urine Glucose NEGATIVE (NEG); Urine Protein NEGATIVE (NEG); Urine Specific Gravity 1.015 (1.005-1.030); Urine pH 5.5 (5.0-7.0)
[2019-07-28 11:21] LABS: Absolute Lymphocytes (CBC) 1.1 K/uL (0.7-4.9); Basophils % 0.5 % (0-1.3); Hematocrit 37.7 % (36.0-45.0); Lymphocytes % 13.6 % (15.3-44.8)
[2019-07-28 11:26] LABS: Protime INR 0.88
[2019-07-28] MEDS ORDERED: CLINDAMYCIN 900MG/D5W 900 MG/50 ML IVPB IV ONE (11:30)
[2019-07-28] MEDS ORDERED: ONDANSETRON 4 MG/2 ML VIAL ONE (11:30)
[2019-07-28] MEDS ORDERED: MORPHINE 4 MG/ML SYR ONE (11:30)
--- NOTE | 2019-07-28 11:34 | ER ---
Nurse's Notes [facility] Name: Yue Desir Age: 43 yrs Sex: Female : 1975 Arrival Date: 07/28/2019 Time: 09:59 Bed 16 Private MD: Jax Tabor Diagnosis: Cutaneous abscess of right axilla Presentation: 07/28 10:06 Presenting complaint: Patient states: Abscess to right axilla, Dr. Estevez sent me la1 here because they dont do direct admit. Transition of care: patient was not received from another setting of care. Onset of symptoms was July 28, 2019. Risk Assessment: Do you want to hurt yourself or someone else? Patient reports no desire to harm self or others. Initial Sepsis Screen: Does the patient meet any 2 criteria? No. Patient's initial sepsis screen is negative. Does the patient have a suspected source of infection? No. Patient's initial sepsis screen is negative. Care prior to arrival: None. 10:06 Method Of Arrival: Ambulatory la1 10:06 Acuity: FREDRICK 3 la1 Triage Assessment: 10:09 General: Appears in no apparent distress. uncomfortable, Behavior is calm, cooperative, hj appropriate for age. Pain: Complains of pain in R axilla. INTRANET SUPPORT: 10:06 LMP N/A - Hysterectomy la1 Historical: - Allergies: 10:06 Ciprofloxacin; la1 10:06 Dilantin; la1 10:06 HYDROCODONE; la1 10:06 Iodine; la1 10:06 Phenergan; la1 10:06 Tegretol; la1 - Home Meds: 10:10 Tramadol Oral [Active]; hj - PMHx: 10:06 Migraines; Seizures; la1 - PSHx: 10:10 Unable to obtain; hj - Immunization history:: Adult Immunizations up to date. - Social history:: Smoking status: Patient/guardian denies using tobacco. - Ebola Screening: : No symptoms or risks identified at this time. Screenin:09 Abuse screen: Denies threats or abuse. Denies injuries from another. Nutritional hj screening: No deficits noted. Tuberculosis screening: No symptoms or risk factors identified. Fall Risk None identified. Assessment: 10:10 General: Appears in no apparent distress. uncomfortable, Behavior is calm, cooperative, hj appropriate for age. Pain: Complains of pain in R axilla. Neuro: Level of Consciousness is awake, alert, obeys commands, Oriented to person, place, time, situation, Appropriate for age. Cardiovascular: Capillary refill < 3 seconds Patient's skin is warm and dry. Respiratory: Airway is patent Respiratory effort is even, unlabored, Respiratory pattern is regular, symmetrical. GI: No signs and/or symptoms were reported involving the gastrointestinal system. : No signs and/or symptoms were reported regarding the genitourinary system. EENT: No signs and/or symptoms were reported regarding the EENT system. Derm: abscess R axilla. Musculoskeletal: No signs and/or symptoms reported regarding the musculoskeletal system. Vital Signs: 10:06 BP 120 / 87; Pulse 54; Resp 16; Temp 97.7; Pulse Ox 100% on R/A; Weight 81.65 kg; la1 Height 5 ft. 6 in. (167.64 cm); 10:52 BP 107 / 68; Pulse 66; Resp 17; Temp 98.2(O); Pulse Ox 99% ; mh5 13:08 BP 108 / 69; Pulse 65; Resp 18; Pulse Ox 100% on R/A; hj 10:06 Body Mass Index 29.05 (81.65 kg, 167.64 cm) la1 ED Course: 09:59 Patient arrived in ED. mr 09:59 Jax Tabor MD is Private Physician. mr 10:06 Arm band placed on right wrist. la1 10:07 Triage completed. la1 10:08 Homero Langley, YESSICA is Primary Nurse. 10:09 Patient has correct armband on for positive identification. Bed in low position. Call light in reach. Side rails up X 1. 10:24 Willian Butler MD is Attending Physician. [facility] 11:01 Pulse ox on. NIBP on. mh5 11:01 Urine collected: clean catch specimen, clear. [facility] 11:06 Initial lab(s) drawn, by ia, sent to lab. Inserted saline lock: 22 gauge in left hj antecubital area, using aseptic technique. Blood collected. 11:10 First set of blood cultures drawn by ia. 11:13 Basic Metabolic Panel Sent. 11:13 CBC with Diff Sent. 11:13 LFT's Sent. hj 11:13 Magnesium Sent. hj 11:14 NT PRO-BNP Sent. hj 11:14 PT-INR Sent. hj 11:14 Troponin (emerg Dept Use Only) Sent. 11:20 Second set of blood cultures drawn by ia. hj 11:29 Urine Dipstick-Ancillary Sent. 5 11:29 Urine --Ancillary Sent. 5 11:29 Urine Dipstick--Ancillary (enter results) Sent. 5 11:29 Urine --Ancillary (enter results) Sent. 5 11:32 Anen Monson MD is Hospitalizing Provider. [facility] 11:34 EKG done, by engineering tech. reviewed by Willian Butler MD. [facility] 11:37 XRAY Chest (1 view) In Process Unspecified. EDIL 13:06 No provider procedures requiring assistance completed. Patient admitted, IV remains in place. intact. Administered Medications: 11:28 Drug: Clindamycin 900 mg Route: IVPB; Infused Over: 30 mins; Site: left antecubital; 12:00 Follow up: IV Status: Completed infusion 11:28 Drug: morphine 4 mg Route: IVP; Site: left antecubital; 11:41 Follow up: Response: No adverse reaction; RASS: Alert and Calm (0) 11:28 Drug: Zofran 4 mg Route: IVP; Site: left antecubital; 11:41 Follow up: Response: No adverse reaction; Nausea is decreased Outcome: 11:33 Decision to Hospitalize by Provider. [facility] 13:06 Admitted to Med/surg accompanied by nurse, via wheelchair, room 228, with chart, Report hj called to YESSICA Stanley 13:06 Condition: stable 13:06 Instructed on the need for admit, Demonstrated understanding of instructions. 13:08 Patient left the ED. Signatures: Dispatcher [employer] Willian Wolff MD MD cha Rivera, Lyudmila mr Bhaskar, Suleiman, RN RN [email or web address] Homero Langley, RN RN Mala Moncada [facility] Kelly Walls 3
--- NOTE | 2019-07-28 11:35 | EDPHYS ---
Physician Documentation [facility] Name: Yue Desir Age: 43 yrs Sex: Female : 1975 Arrival Date: 07/28/2019 Time: 09:59 Bed 16 Private MD: Jax Tabor ED Physician Willian Butler HPI: 07/28 11:28 This 43 yrs old Female presents to ER via Ambulatory with complaints of Wound shauna Infection. 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 - Social history:: Smoking status: Patient/guardian denies using tobacco. - Ebola Screening: : No symptoms or risks identified at this time. ROS: 11:28 Constitutional: Negative for fever, chills, and weight loss, Eyes: Negative for injury, shauna pain, redness, and discharge, ENT: Negative for injury, pain, and discharge, Neck: Negative for injury, pain, and swelling, Cardiovascular: Negative for chest pain, palpitations, and edema, Respiratory: Negative for shortness of breath, cough, wheezing, and pleuritic chest pain, Abdomen/GI: Negative for abdominal pain, nausea, vomiting, diarrhea, and constipation, Back: Negative for injury and pain, : Negative for injury, bleeding, discharge, and swelling, Skin: Negative for injury, rash, and discoloration, Neuro: Negative for headache, weakness, numbness, tingling, and seizure, Psych: Negative for depression, anxiety, suicide ideation, homicidal ideation, and hallucinations, Allergy/Immunology: Negative for hives, rash, and allergies, Endocrine: Negative for neck swelling, polydipsia, polyuria, polyphagia, and marked weight changes, Hematologic/Lymphatic: Negative for swollen nodes, abnormal bleeding, and unusual bruising. 11:28 MS/extremity: Negative for swelling, tenderness. Exam: 11:28 Constitutional: This is a well developed, well nourished patient who is awake, alert, shauna and in no acute distress. Head/Face: Normocephalic, atraumatic. Eyes: Pupils equal round and reactive to light, extra-ocular motions intact. Lids and lashes normal. Conjunctiva and sclera are non-icteric and not injected. Cornea within normal limits. Periorbital areas with no swelling, redness, or edema. ENT: Nares patent. No nasal discharge, no septal abnormalities noted. Tympanic membranes are normal and external auditory canals are clear. Oropharynx with no redness, swelling, or masses, exudates, or evidence of obstruction, uvula midline. Mucous membranes moist. Neck: Trachea midline, no thyromegaly or masses palpated, and no cervical lymphadenopathy. Supple, full range of motion without nuchal rigidity, or vertebral point tenderness. No Meningismus. Chest/axilla: Normal chest wall appearance and motion. Nontender with no deformity. No lesions are appreciated. Cardiovascular: Regular rate and rhythm with a normal S1 and S2. No gallops, murmurs, or rubs. Normal PMI, no JVD. No pulse deficits. Respiratory: Lungs have equal breath sounds bilaterally, clear to auscultation and percussion. No rales, rhonchi or wheezes noted. No increased work of breathing, no retractions or nasal flaring. Abdomen/GI: Soft, non-tender, with normal bowel sounds. No distension or tympany. No guarding or rebound. No evidence of tenderness throughout. Back: No spinal tenderness. No costovertebral tenderness. Full range of motion. Female : Normal external genitalia. Neuro: Awake and alert, GCS 15, oriented to person, place, time, and situation. Cranial nerves II-XII grossly intact. Motor strength 5/5 in all extremities. Sensory grossly intact. Cerebellar exam normal. Normal gait. Psych: Awake, alert, with orientation to person, place and time. Behavior, mood, and affect are within normal limits. 11:28 Musculoskeletal/extremity: Circulation is intact in all extremities. Sensation intact. Compartment Syndrome exam of affected extremity: is normal. DVT Exam: negative Homans' sign noted on exam, no appreciated bluish discoloration, no erythema, no increased warmth, pain, swelling, tenderness. Vital Signs: 10:06 BP 120 / 87; Pulse 54; Resp 16; Temp 97.7; Pulse Ox 100% on R/A; Weight 81.65 kg; la1 Height 5 ft. 6 in. (167.64 cm); 10:52 BP 107 / 68; Pulse 66; Resp 17; Temp 98.2(O); Pulse Ox 99% ; mh5 13:08 BP 108 / 69; Pulse 65; Resp 18; Pulse Ox 100% on R/A; hj 10:06 Body Mass Index 29.05 (81.65 kg, 167.64 cm) la1 MDM: 10:24 Patient medically screened. [facility] 11:30 Data reviewed: vital signs, nurses notes, lab test result(s), EKG, radiologic studies, shauna plain films. 07/28 11:04 Order name: Basic Metabolic Panel; Complete Time: 12:37 07/28 11:04 Order name: CBC with Diff; Complete Time: 12:37 07/28 11:04 Order name: LFT's; Complete Time: 12:37 07/28 11:04 Order name: Magnesium; Complete Time: 12:37 07/28 11:04 Order name: NT PRO-BNP; Complete Time: 12:37 07/28 11:04 Order name: PT-INR; Complete Time: 12:37 07/28 11:04 Order name: Troponin (emerg Dept Use Only); Complete Time: 12:37 07/28 11:05 Order name: Blood Culture Adult (2) 07/28 11:15 Order name: Urine Dipstick--Ancillary (enter results) 07/28 11:15 Order name: Urine --Ancillary (enter results) 07/28 11:20 Order name: Urine --Ancillary [facility] 07/28 11:20 Order name: Urine Dipstick-Ancillary [facility] 07/28 11:27 Order name: Urine Microscopic Only; Complete Time: 12:37 07/28 11:27 Order name: Urine Culture 07/28 11:04 Order name: XRAY Chest (1 view); Complete Time: 12:37 07/28 11:04 Order name: EKG; Complete Time: 11:06 07/28 11:04 Order name: Cardiac monitoring; Complete Time: 11:04 07/28 11:04 Order name: EKG - Nurse/Tech; Complete Time: : 07/28 11:04 Order name: IV Saline Lock; Complete Time: 11: 07/28 11:04 Order name: Labs collected and sent; Complete Time: 11: 07/28 11:04 Order name: O2 Per Protocol; Complete Time: 11: 07/28 11:04 Order name: O2 Sat Monitoring; Complete Time: : Administered Medications: Drug: Clindamycin 900 mg Route: IVPB; Infused Over: 30 mins; Site: left antecubital; 12:00 Follow up: IV Status: Completed infusion Drug: morphine 4 mg Route: IVP; Site: left antecubital; 11:41 Follow up: Response: No adverse reaction; RASS: Alert and Calm (0) Drug: Zofran 4 mg Route: IVP; Site: left antecubital; 11:41 Follow up: Response: No adverse reaction; Nausea is decreased Disposition: 07/28/19 11:33 Hospitalization ordered by Anne Monson for Inpatient Admission. Preliminary diagnosis is Cutaneous abscess of right axilla. - Bed requested for Telemetry/MedSurg (Inpatient). - Status is Inpatient Admission. - Condition is Stable. - Problem is new. - Symptoms have improved. UTI on Admission? No Signatures: Dispatcher [employer] EDMS Vonda Ramon Corey, MD MD cha Attema, Lee, RN RN sdHomero Randolph RN RN Corrections: (The following items were deleted from the chart) 12:30 11:33 Hospitalization Ordered by Anne Monson MD for Inpatient Admission. Preliminary bd diagnosis is Cutaneous abscess of right axilla. Bed requested for Telemetry/MedSurg (Inpatient). Status is Inpatient Admission. Condition is Stable. Problem is new. Symptoms have improved. UTI on Admission? No. shauna 13:08 12:30 07/28/2019 11:33 Hospitalization Ordered by Anne Monson MD for Inpatient hj Admission. Preliminary diagnosis is Cutaneous abscess of right axilla. Bed requested for Telemetry/MedSurg (Inpatient). Status is Inpatient Admission. Condition is Stable. Problem is new. Symptoms have improved. UTI on Admission? No. apolinar
[2019-07-28 11:42] LABS: ALT/SGPT 15 U/L (12-78); AST/SGOT 13 U/L (15-37); Albumin 3.2 g/dL (3.4-5.0); Alkaline Phosphatase 63 U/L (45-117); BUN Blood Urea Nitrogen 6 mg/dL (7-18); Bicarbonate 28 mmol/L (21-32); Bilirubin Direct < 0.1 mg/dL (0-0.2); Bilirubin Total 0.3 mg/dL (0.2-1.0); Glucose Level 98 mg/dL (74-106); Magnesium 2.3 mg/dL (1.8-2.4); NT PRO-BNP 186 pg/mL (<125); Potassium 3.7 mmol/L (3.5-5.1); Protein, Total 7.1 g/dL (6.4-8.2); Sodium Level 140 mmol/L (136-145); Troponin (Emerg Dept Use Only) < 0.02 ng/mL (0.0-0.045)
--- NOTE | 2019-07-28 11:43 | RAD REPORT ---
EXAM DESCRIPTION: RAD - Chest Single View - 07/28/2019 11:35 am CLINICAL HISTORY: wound infection Chest pain. COMPARISON: Chest Single View dated 06/17/2019; Chest Pa And Lat (2 Views) dated 01/25/2019 FINDINGS: Portable technique limits examination quality. The lungs are grossly clear. The heart is normal in size. No displaced fractures. IMPRESSION: No acute intrathoracic process suspected.
[2019-07-28 11:58] LABS: Urine Bacteria 20-50 /HPF (<20); Urine Culture Reflex Order NOT NEEDED; Urine RBC <5 /HPF (NONE SEEN)
[2019-07-28] MEDS: NA CHLORIDE 0.9% 1,000 ML IV SCH (13:07)
[2019-07-28 13:18] VITALS: BMI 28.1
--- NOTE | 2019-07-28 16:31 | P.HP ---
Patient History Date of Service: 07/28/19 Reason for admission: Right axillary abscess History of Present Illness: This is a 43-year-old female with past medical history of migraine and seizures admitted for right axillary abscess. Per patient, she had failed medical management for an abscess back in June, then came into ER and was admitted on June 17, 2019. Patient underwent a successful incision and drainage procedure with Dr. Estevez during that admission. She was then discharged home on oral antibiotics. She states that she has been following up in the wound Care [facility] , last visit was this morning at 8:00 a.m. She was told to come to the emergency room from wound Care Clinic for more IV antibiotics and possible incision and drainage. Therefore she came to the ER. In the ER, blood pressure was 120/67, heart rate 54, respirations 16, afebrile at 97.7, satting 100% on room air. BMI 29.5. Labs were unremarkable except for neutrophils elevated at 78.2. Chest x-ray without any she received clindamycin, morphine and Zofran in the ER. Decision was made to admit the patient. At the time of my exam, she is alert oriented x3, in no acute distress and remained hemodynamically stable. Patient denied any fevers, chills, chest pain , shortness of breath, headache, and vision changes, speech changes, GI or complaints. She states that she does have a history of any diabetes, denies usage of any other IVs/needles. Allergies carbamazepine [From Tegretol] Allergy (Verified 06/17/19 04:13) Unknown hydrocodone Allergy (Verified 06/17/19 04:13) Unknown iodine Allergy (Verified 06/17/19 04:13) Unknown phenytoin [From Dilantin] Allergy (Verified 06/17/19 04:13) Unknown promethazine [From Phenergan] Allergy (Verified 06/17/19 04:13) Unknown ciprofloxacin Adverse Reaction (Verified 06/17/19 04:13) Rash Home medications list reviewed: Yes Home Medications: Clindamycin HCl 300 mg PO Q8H #42 capsule 06/18/19 Tramadol HCl [Ultram] 50 mg PO Q6H PRN #30 tablet 06/18/19 - Past Medical/Surgical History Has patient received pneumonia vaccine in the past: No Diabetic: No -: migraines -: 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 moist/pink, EOMI, Sclerae nonicteric Neck: Supple, 2+ carotid pulse no bruit, No LAD, Without JVD or thyroid abnormality Respiratory: Clear to auscultation bilaterally, Normal air movement Cardiovascular: Regular rate/rhythm, Normal S1 S2 Gastrointestinal: Normal bowel sounds, No tenderness Musculoskeletal: No tenderness Integumentary: Skin lesion, Erythema, Warmth, Other (Axillary abscess, right- sided.) Neurological: Normal speech, Normal strength at 5/5 x4 extr, Normal tone, Normal affect - Studies Laboratory Data (last 24 hrs) 07/28/19 11:10: PT 10.4, INR 0.88 07/28/19 11:10: WBC 8.1, Hgb 12.7, Hct 37.7, Plt Count 249 07/28/19 11:10: Sodium 140, Potassium 3.7, BUN 6 L, Creatinine 0.85, Glucose 98 , Magnesium 2.3, Total Bilirubin 0.3, AST 13 L, ALT 15, Alkaline Phosphatase 63 Assessment and Plan - Problems (Diagnosis) (1) Axillary abscess Current Visit: No Status: Acute Plan: Patient with right axillary abscess and cellulitis. -we will start patient on IV vancomycin as patient with a prior history of MRSA growth in the wound -cultures pending -consulted Dr. Estevez, awaiting recommendations -pain control -wound care (2) Migraine Current Visit: No Status: Chronic Plan: Stable, patient on no medications at home. Qualifiers: Migraine type: unspecified (3) Seizure Current Visit: No Status: Chronic Plan: Stable. -Per patient, she is not on any medications for seizures. They are well controlled. Last seizure was 9 months ago. (4) History of MRSA infection Current Visit: Yes Status: Acute - Plan DVT prophylaxis: Lovenox GI prophylaxis: None Diet: Regular, NPO after midnight Disposition: Admit to floor.Pending symptomatic improvement, cultures along with surgical evaluation. - Advance Directives Does patient have a Living Will: No Does patient have a Durable POA for Healthcare: No
[2019-07-28] MEDS ORDERED: POTASSIUM CL SA 10 MEQ TAB PO ONE (17:00)
[2019-07-28] MEDS: TRAMADOL HCL 50 MG TAB PO PRN (17:13)
[2019-07-28] MEDS: ONDANSETRON 4 MG/2 ML VIAL IV PRN (17:45)
[2019-07-28] MEDS ORDERED: VANCOMYCIN 1.5 GM in NA CHLORIDE 0.9% 500 ML IVPB SCH (18:00)
--- NOTE | 2019-07-28 18:26 | EKG ---
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
[2019-07-28] MEDS ORDERED: DIPHENHYDRAMINE 25 MG TAB/CAP PO ONE (18:58)
[2019-07-29] MEDS: NA CHLORIDE 0.9% 1,000 ML IV SCH ×4 (00:24→21:46)
[2019-07-29] MEDS: MORPHINE 2 MG/ML SYR IV PRN ×2 (05:21→14:09)
[2019-07-29 05:49] LABS: Absolute Lymphocytes (CBC) 1.6 K/uL (0.7-4.9); Basophils % 0.7 % (0-1.3); Hematocrit 32.9 % (36.0-45.0); Lymphocytes % 33.5 % (15.3-44.8); MPV 8.5 fL (7.6-11.3); RBC Red Blood Cell Count 3.48 M/uL (3.86-4.86)
[2019-07-29 06:08] LABS: Albumin 2.6 g/dL (3.4-5.0); Bilirubin Total 0.4 mg/dL (0.2-1.0); Phosphorus 3.2 mg/dL (2.5-4.9); Protein, Total 5.9 g/dL (6.4-8.2)
[2019-07-29] MEDS ORDERED: ENOXAPARIN 40 MG/0.4 ML SQ SCH (09:00)
[2019-07-29] MEDS ORDERED: Ringers Lactate 1,000 ML IV ONE (09:12)
[2019-07-29] MEDS ORDERED: FENTANYL CITR 100 MCG/2 ML ONE (09:54)
[2019-07-29] MEDS ORDERED: LIDOCAINE 1% MPF 5 ML VIAL ONE (09:54)
[2019-07-29] MEDS ORDERED: MIDAZOLAM HCL 2 MG/2 ML INJ ONE (09:54)
[2019-07-29] MEDS ORDERED: PROPOFOL 200 MG/20 ML VIAL IV ONE (09:54)
[2019-07-29] MEDS ORDERED: KETOROLAC 30 MG/ML INJ ONE (10:39)
[2019-07-29] MEDS ORDERED: ONDANSETRON 4 MG/2 ML VIAL ONE (10:40)
[2019-07-29] MEDS: HYDROMORPHONE HCL 1 MG/ML INJ ONE ×2 (11:05→11:15)
--- NOTE | 2019-07-29 11:07 | P.BOP ---
Preoperative diagnosis: right axillary abscess Postoperative diagnosis: same Primary procedure: Incision and drainage of right axillary abscess Specimen: culture Findings: abscess and devitalized tissue Anesthesia: General Complications: None Transferred to: Recovery Room Condition: Good
--- NOTE | 2019-07-29 12:17 | CON ---
Date of Consultation: 07/29/2019 Reason Of Service: Cellulitis of the axilla with abscess and cellulitis of the lateral chest wall. History Of Present Illness: This is the case of a 43-year-old patient, known by us in the past. Mor e than a month ago, patient has cellulitis of the right axillary area that required debridement, inci som and drainage. Improved, area resolved, and then in the last 2 days, she developed another absce ss near by with cellulitis present. Patient was sent to the ER and admitted to the hospital for IV a ntibiotics and also a surgical debridement and drainage. She does not remember any trauma. She has been trying to be careful with it and also to shaving on that area. The area becomes very tender. S he does not let anybody touch it unless it is under anesthesia. Past Medical History: Skin abscess on axillary region, migraine. Allergies: TEGRETOL, DILANTIN, PHENERGAN, CIPRO, HYDROCODONE, AND IODINE. Medication: Ultram. Family History: Father has cancer, she does not know the details. Social History: She does smoke. She does not drink alcohol. Review of Systems: Ten points otherwise unremarkable. Physical Examination: General: Patient is awake and alert. HEENT: Pupils are equal and reactive, anicteric. Neck: Supple. Chest: Clear. Over the lateral region in the axillary area, patient has an area of cellulitis, redn ess, increased temperature, fluctuance present. Pustules already coming to the axillary region. Con sistent with an abscess. Abdomen: Soft and depressible. No guarding or rebound. Extremities: Good capillary refill. Breasts: Deferred. Rectal: Deferred. Genitalia: Deferred. Laboratory Data: Blood work shows WBC count of 8.1 with hemoglobin of 12.7. INR is 0.88. Chloride is 108. Assessment: 43-year-old patient, comes to us with an abscess and cellulitis of the right axilla and lateral chest region. Patient needs incision and drainage with benefits, alternatives, and risks ful ly explained to the patient, which include but are not limited to infection, bleeding, damage to allen cent structures and its complication, nonhealing wound, HI, and even . She also has to understa nd she has to be compliant with the antibiotics treatment and also wound care. The patient was booke d in the OR. She cannot have it done at bedside, it is too tender for her. WOLF/MODLayla Voice ID: [id number] Report ID: [id number]
--- NOTE | 2019-07-29 12:56 | P.PN ---
Subjective Date of Service: 07/29/19 Chief Complaint: Right axillary abscess Subjective: No new changes Patient seen and examined at bedside. Chart reviewed and case discussed with nursing staff. Patient pending I&D today. No acute events noted overnight. Review of Systems 10-point ROS is otherwise unremarkable Physical Examination - Vital Signs Temperature: 98.4 F Blood Pressure: 107/75 Pulse: 56 Respirations: 16 Pulse Ox (%): 99 - Physical Exam General: Alert, In no apparent distress HEENT: Atraumatic, PERRLA, EOMI Neck: Supple, JVD not distended Respiratory: Clear to auscultation bilaterally, Normal air movement Cardiovascular: Regular rate/rhythm, Normal S1 S2 Gastrointestinal: Normal bowel sounds, No tenderness Musculoskeletal: No tenderness Integumentary: Tenderness/swelling, Erythema, Warmth Neurological: Normal speech, Normal tone, Normal affect Lymphatics: No axilla or inguinal lymphadenopathy - Studies Microbiology Data (last 24 hrs): 07/28/19 16:05 Wound - Right Axilla Gram Stain - Final Assessment And Plan - Current Problems (Diagnosis) (1) Axillary abscess Current Visit: No Status: Acute Plan: Patient with right axillary abscess and cellulitis. -Patient unable to tolerate Vancomycin, due to itching/rash. Vancomycin discontinued and added to allergy list. -we will continue on PO bactrim for now. As patient with a prior history of MRSA growth in the wound and multiple allergies, ID consulted to assist with antibiotic choice and duration of treatment. -cultures pending -consulted Dr. Estevez,Recommendations appreciated. Pending I&D in OR today. -pain control -wound care (2) Migraine Current Visit: No Status: Chronic Plan: Stable, patient on no medications at home. Qualifiers: Migraine type: unspecified (3) Seizure Current Visit: No Status: Chronic Plan: Stable. -Per patient, she is not on any medications for seizures. They are well controlled. Last seizure was 9 months ago. (4) History of MRSA infection Current Visit: Yes Status: Acute - Plan DVT prophylaxis: Lovenox GI prophylaxis: None Diet: Regular, NPO after midnight Disposition: Pending symptomatic improvement, cultures along with surgical I&D in OR today.
--- NOTE | 2019-07-29 14:58 | CON ---
History Of Present Illness: This is a 43-year-old female with significant history of migraines and s eizures since teenage. Patient is coming in with right axillary abscess, which started in June, and was seen earlier today. I and D done by surgical team. Patient was sent home on oral antibiotic. P nora came back again with similar symptoms, this time of larger abscess formation. Patient denies any fever at this time. Had surgical I and D done earlier today by surgical team. Had possible Red man syndrome reaction to vancomycin earlier as patient has received vancomycin in the past without an y problem. Denies any other problems at this time. Past Medical History: Seizure disorder, migraines. Social History: Nonsmoker, nondrinker. Family History: Noncontributory. Medications: Bactrim. See MAR for other medications. Allergies: CARBAMAZEPINE, HYDROCODONE, IODINE, PHENYTOIN, PROMETHAZINE, AND CIPRO. Review of Systems: A 10-point review was performed. Physical Examination: General: This is a 43-year-old female, lying in bed, not in any acute cardiopulmonary distress. Vital Signs: Temperature 98.4, pulse 56, respirations 16, blood pressure 107/75. Skin: Examination of right axillary area shows surgical wound dressing with no erythematous changes surrounding the wound dressing. HEENT: Unremarkable. Neck: Supple. Lungs: Clear. Laboratory Data: Shows WBC 4.9, hemoglobin 11.1, platelets 213. Sodium 142, potassium 4, chloride 1 10, bicarb 28, BUN 5, creatinine 0.8, glucose is 80, albumin is 2.6. Blood cultures no growth in 24 hours. Wound cultures are pending. Assessment And Plan: A 43-year-old female with right axillary abscess status post incision and drain age, currently on Bactrim. Patient has received vancomycin with possible Red man syndrome reaction w ith no other risk factor. Continue antibiotic and wound care for 2 weeks antibiotic treatment course . We will follow patient as needed. Follow up with surgical team and wound care team. Thank you for consult. SHWETA/ROBER Voice ID: [id number] Report ID: [id number]
[2019-07-29] MEDS: ONDANSETRON 4 MG/2 ML VIAL IV PRN ×2 (17:06→21:46)
[2019-07-29] MEDS: SMZ./TMP. 800/160 MG TABLET PO SCH (21:44)
[2019-07-29] MEDS: TRAMADOL HCL 50 MG TAB PO PRN (21:45)
--- NOTE | 2019-07-29 22:06 | OP ---
Date of Procedure: 07/29/2019 Surgeon: Homero Estevez MD Preoperative Diagnosis: Right axillary complex abscess. Postoperative Diagnosis: Right axillary complex abscess. Procedure: Incision and drainage of right axillary complex abscess. Anesthesia: General plus local. Indications: This is the case of a 43-year-old patient, with abscess of the right axillary area. Be nefits, alternatives, and risks of incision and drainage were discussed with the patient which includ e, but are not limited to infection, bleeding, damage to adjacent structures as complication, nonheal ing wound, NJ, and even . She also understands this may not relieve any symptoms. She might ne ed more than one surgical intervention. She understands the importance of being compliant with dress ing changes and antibiotics. She signed a consent. The area of concern was marked by me and the pat ient in the holding room. Description Of Procedure: The patient was brought to the operating room, placed in supine position. Anesthesia was done without complication. Right axillary area was prepped and draped in a sterile f ashion. Local anesthesia was applied followed by sharp incision of the skin, and removal of the necr otic tissue was also done. Abscess was found, was explored opened. Then the area was a packed with wet-to-dry dressing. Patient tolerated the procedure well. Patient was sent to recovery in stable c ondition. WOLF/ROBER Voice ID: [id number] Report ID: [id number]
[2019-07-29 23:01] VITALS: O2SAT 97
[2019-07-30] MEDS: NA CHLORIDE 0.9% 1,000 ML IV SCH (05:00)
[2019-07-30 05:47] LABS: Absolute Lymphocytes (CBC) 1.9 K/uL (0.7-4.9); Basophils % 0.6 % (0-1.3); Hematocrit 32.9 % (36.0-45.0); Lymphocytes % 37.2 % (15.3-44.8); MPV 8.2 fL (7.6-11.3); RBC Red Blood Cell Count 3.51 M/uL (3.86-4.86)
[2019-07-30] MEDS: SMZ./TMP. 800/160 MG TABLET PO SCH (08:45)
[2019-07-30] MEDS: MORPHINE 2 MG/ML SYR IV PRN (08:51)
[2019-07-30] MEDS: ONDANSETRON 4 MG/2 ML VIAL IV PRN (10:01)
--- NOTE | 2019-07-30 12:00 | P.PN ---
Subjective Date of Service: 07/30/19 Chief Complaint: Right axillary abscess Subjective: Tolerating diet, Ambulating, Improving Review of Systems 10-point ROS is otherwise unremarkable Physical Examination - Vital Signs Temperature: 98.4 F Blood Pressure: 101/57 Pulse: 67 Respirations: 20 Pulse Ox (%): 99 - Physical Exam General: Alert, In no apparent distress, Oriented x3, Cooperative HEENT: PERRLA, EOMI Neck: Supple Respiratory: Normal air movement Cardiovascular: No edema, Normal pulses Gastrointestinal: Soft and benign Integumentary: No cyanosis, Other (intact surgical site) - Studies Microbiology Data (last 24 hrs): 07/28/19 16:05 Wound - Right Axilla Gram Stain - Final 07/28/19 10:56 Clean Catch Urine [place] Count - Final >100,000 CFU/ML. 07/28/19 10:56 Clean Catch Urine - Final MIXED EDGAR. Assessment And Plan - Plan wet to dry NS daily f/u at wound healing center in a week.
[2019-07-30 14:15] VITALS: BP 127/58; TEMP 97
--- NOTE | 2019-08-01 12:12 | P.DS ---
Admission Date: 07/28/19 Discharge Date: 07/30/19 Disposition: ROUTINE DISCHARGE Discharge Condition: GOOD Reason for Admission: Right axillary abscess Consultations: Infectious diseases General surgery Procedures: 07/29/2019: I and D - Problems (1) Axillary abscess Status: Acute (2) Migraine Status: Chronic Qualifiers: Migraine type: unspecified (3) Seizure Status: Chronic (4) History of MRSA infection Status: Acute Brief History of Present Illness: This is a 43-year-old female with past medical history of migraine and seizures admitted for right axillary abscess. Per patient, she had failed medical management for an abscess back in June, then came into ER and was admitted on June 17, 2019. Patient underwent a successful incision and drainage procedure with Dr. Estevez during that admission. She was then discharged home on oral antibiotics. She states that she has been following up in the [facility] , last visit was this morning at 8:00 a.m. She was told to come to the emergency room from [facility] for more IV antibiotics and possible incision and drainage. Therefore she came to the ER. In the ER, blood pressure was 120/67, heart rate 54, respirations 16, afebrile at 97.7, satting 100% on room air. BMI 29.5. Labs were unremarkable except for neutrophils elevated at 78.2. Chest x-ray without any she received clindamycin, morphine and Zofran in the ER. Decision was made to admit the patient. At the time of my exam, she is alert oriented x3, in no acute distress and remained hemodynamically stable. Patient denied any fevers, chills, chest pain , shortness of breath, headache, and vision changes, speech changes, GI or complaints. She states that she does have a history of any diabetes, denies usage of any other IVs/needles. Hospital Course: Patient was admitted with right axillary abscess with cellulitis. She was given vancomycin, she was unable to tolerated this time even though she did tolerated at last admission. Vancomycin was discontinued and she was put on oral Bactrim. Infectious disease was consulted. Cultures were positive for Proteus mirabilis, Klebsiella pneumonia and MRSA. Dr. Estevez was also consulted, and patient underwent an I and D. she was then cleared for discharge by consultants point of view. She was discharged home on oral Bactrim, which she was tolerating here in the hospital. Prior to discharge, her symptoms were improved, she was tolerating an oral diet, she was alert oriented x3 and in no distress. She was also hemodynamically stable. Her diagnoses and treatment plan was explained to her, she was taught wound care cleaning, all questions were answered and she verbalized understanding. She was then discharged home in a safe and stable manner. She was instructed to follow up with Dr. Estevez in 1 week. Vital Signs/Physical Exam: Temp Pulse Resp BP Pulse Ox 97 F 64 18 127/58 L 100 07/30/19 12:00 07/30/19 12:00 07/30/19 12:00 07/30/19 12:00 07/30/19 12:00 General: Alert, In no apparent distress HEENT: Atraumatic, PERRLA, EOMI Neck: Supple, JVD not distended Respiratory: Clear to auscultation bilaterally, Normal air movement Cardiovascular: Regular rate/rhythm, Normal S1 S2 Gastrointestinal: Normal bowel sounds, No tenderness Musculoskeletal: No tenderness Integumentary: No rashes Neurological: Normal speech, Normal tone, Normal affect Lymphatics: No axilla or inguinal lymphadenopathy Laboratory Data at Discharge: WBC 5.1 K/uL (4.3-10.9) 07/30/19 05:13 Hgb 11.4 g/dL (12.0-15.0) L 07/30/19 05:13 Hct 32.9 % (36.0-45.0) L 07/30/19 05:13 Plt Count 223 K/uL (152-406) 07/30/19 05:13 PT 10.4 SECONDS (9.5-12.5) 07/28/19 11:10 INR 0.88 07/28/19 11:10 Sodium 142 mmol/L (136-145) 07/29/19 05:09 Potassium 4.0 mmol/L (3.5-5.1) 07/29/19 05:09 BUN 5 mg/dL (7-18) L 07/29/19 05:09 Creatinine 0.89 mg/dL (0.55-1.3) 07/29/19 05:09 Glucose 80 mg/dL (74-106) 07/29/19 05:09 Phosphorus 3.2 mg/dL (2.5-4.9) 07/29/19 05:09 Magnesium 2.3 mg/dL (1.8-2.4) 07/28/19 11:10 Total Bilirubin 0.4 mg/dL (0.2-1.0) 07/29/19 05:09 AST 22 U/L (15-37) 07/29/19 05:09 ALT 28 U/L (12-78) 07/29/19 05:09 Alkaline Phosphatase 59 U/L (45-117) 07/29/19 05:09 Home Medications: Smz./Tmp. [Bactrim Ds 800 MG/160 MG*] 1 tab PO BID #28 tab 07/30/19 traMADol HCL [Ultram*] 50 mg PO Q6H PRN #15 tab 07/30/19 New Medications: Smz./Tmp. [Bactrim Ds 800 MG/160 MG*] 1 tab PO BID #28 tab traMADol HCL [Ultram*] 50 mg PO Q6H PRN #15 tab PRN Reason: Pain Scale 5-7 (Moderate) Patient Discharge Instructions: Please follow up with your primary care physician in 2-3 days. Please follow up with Dr. Estevez in 1 weeks at [facility]. Return to the Emergency room for worsening symptoms. New medication: Bactrim Diet: Regular Activity: Ad troy Followup: Jax Tabor MD [Primary Care Provider] - Homero Estevez MD [ACTIVE - CAN ADMIT] - Time spent managing pt's care (in minutes): 55
== END 2019-07-30 12:50 | disposition home or self-care (01) | DRG 603 ==
LOC: ER 09:56 → ERHOLD 12:12 → OBSVTOIN 12:12 → INTOOBSV 12:12 → 2ND 12:48 → OBSVTOIN 18:22
PROVIDERS: ADMIT Family Medicine; ATTEND Family Medicine
PROC: 0X940ZX Drainage of Right Axilla, Open Approach, Diagnostic (ICD-10-PCS; principal; 2019-07-29 11:45)
DX: L02.411 Cutaneous abscess of right axilla (principal); B96.4 Proteus (mirabilis) (morganii) as the cause of diseases classified elsewhere; B96.1 Klebsiella pneumoniae [K. pneumoniae] as the cause of diseases classified elsewhere; B95.62 Methicillin resistant Staphylococcus aureus infection as the cause of diseases classified elsewhere; R56.9 Unspecified convulsions; G43.909 Migraine, unspecified, not intractable, without status migrainosus
CPT/HCPCS: 36415; 71045; 80048; 80053; 80076; 81003; 81015; 81025; 83735; 83880; 84100; 84484; 85025; 85610; 87040; 87070; 87075; 87077; 87086; 87088; 87186; 87205; 88304; 93005; 94760; 96365; 96375; 99285; G0378; J1170; J2250; J2270; J2405; J2704; J3010; J7030

== ENCOUNTER 2021-02-11 21:53 | Emergency (ER) | payer SELFPAY ==
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
[2021-02-11] MEDS ORDERED: ONDANSETRON 4 MG (ODT) TAB ONE (22:45)
--- NOTE | 2021-02-12 00:01 | ER ---
Nurse's Notes [facility] Name: Yue Desir Age: 45 yrs Sex: Female : 1975 Arrival Date: 02/11/2021 Time: 21:55 Bed 14 Private MD: Diagnosis: Concussion;Sprain of other ligament of right ankle Presentation: 02/11 21:59 Chief complaint: Patient states: Fall down concrete steps last Saturday. Unknown LOC. Has ll1 had N/V daily since this event. L eye black, and nasal bleeding initially. R ankle pain, swelling, and bruising since. Coronavirus screen: Client denies travel out of the [place] in the last 14 days. At this time, the client does not indicate any symptoms associated with coronavirus-19. Ebola Screen: Patient denies travel to an Ebola-affected area in the 21 days before illness onset. Initial Sepsis Screen: Does the patient meet any 2 criteria? No. Patient's initial sepsis screen is negative. Does the patient have a suspected source of infection? Yes: Bone or joint infection. Risk Assessment: Do you want to hurt yourself or someone else? Patient reports no desire to harm self or others. Onset of symptoms was February 16, 2021. 21:59 Method Of Arrival: Ambulatory ll1 21:59 Acuity: FREDRICK 3 ll1 22:59 Care prior to arrival: None. Mechanism of Injury: Fall from standing position. Trauma rv event details: Injury occurred in the [facility], Injury occurred: at home. Injury occurred: February 05, 2021. Trauma Activation: Not Applicable Physician: ED Physician; Name: ; Notified At: ; Arrived At: Physician: General Surgeon; Name: ; Notified At: ; Arrived At: Physician: Radiology; Name: ; Notified At: ; Arrived At: Physician: Respiratory; Name: ; Notified At: ; Arrived At: Physician: Lab; Name: ; Notified At: ; Arrived At: Historical: - Allergies: 22:03 Ciprofloxacin; ll1 22:03 Dilantin; ll1 22:03 HYDROCODONE; ll1 22:03 Iodine; ll1 22:03 Phenergan; ll1 22:03 Tegretol; ll1 - PMHx: 22:03 Migraines; Seizures; ll1 - PSHx: 22:03 Hysterectomy; Cholecystectomy; Appendectomy; ll1 - Immunization history:: Flu vaccine is not up to date. - Social history:: Smoking status: Smoking status: Patient denies any tobacco usage or history of. - Immunization history: Last tetanus immunization: unknown. - Family history:: not pertinent. - Hospitalizations: : No recent hospitalization is reported. Screenin:59 Abuse screen: Denies threats or abuse. Denies injuries from another. Nutritional rv screening: No deficits noted. Tuberculosis screening: No symptoms or risk factors identified. Fall Risk None identified. Primary Survey: 22:30 NO uncontrolled hemorrhage observed. Breathing/Chest: Respiratory pattern: regular. rv 22:30 Circulation: Cardiac rhythm: sinus rhythm. Disability Alert. Exposure/Environment: rv There is no evidence of uncontrolled external bleeding. A warming method has been applied: A warm blanket has been provided to the patient. 02/12 00:19 Reassessment Breathing/Chest Respiratory pattern Regular. rv Secondary Survey: 02/11 22:59 HEENT: No deficits noted. Gastrointestinal: No deficits noted. : No deficits noted. rv Musculoskeletal: No deficits noted. Assessment: 22:56 General: Appears comfortable, Behavior is calm, cooperative. rv 22:58 Pain: Complains of pain in head, right ankle. Neuro: Level of Consciousness is awake, rv alert, obeys commands, Oriented to person, place, time, situation. Cardiovascular: Patient's skin is warm and dry. Respiratory: Airway is patent Respiratory effort is even, unlabored. GI:. Derm: Skin is intact. Vital Signs: 21:59 BP 133 / 90; Pulse 68; Resp 17; Temp 98.0; Pulse Ox 100% ; Height 5 ft. 6 in. (167.64 ll1 cm); Pain 9/10; 21:59 Weight 83.91 kg; ll1 23:54 BP 115 / 69; Pulse 55; Resp 16; Pulse Ox 97% ; rv Wells Coma Score: 22:59 Eye Response: spontaneous(4). Verbal Response: oriented(5). Motor Response: obeys rv commands(6). Total: 15. 02/12 00:20 Eye Response: spontaneous(4). Verbal Response: oriented(5). Motor Response: obeys rv commands(6). Total: 15. Trauma Score (Adult): 02/11 22:59 Eye Response: spontaneous(1); Verbal Response: oriented(1); Motor Response: obeys rv commands(2); Systolic BP: > 89 mm Hg(4); Respiratory Rate: 10 to 29 per min(4); Wells Score: 15; Trauma Score: 12 ED Course: 21:55 Patient arrived in ED. rg4 22:02 Triage completed. ll1 22:04 Arm band placed on Patient placed in an exam room, on a stretcher. ll1 22:06 Gerson Sloan MD is Attending Physician. rn 22:26 Aleksey Yung RN is Primary Nurse. rv 22:51 XRAY Ankle RIGHT 3 view In Process Unspecified. EDMS 23:00 Patient has correct armband on for positive identification. Pulse ox on. NIBP on. rv 23:01 Patient maintains SpO2 saturation greater than 95% on room air. rv 23:01 Thermoregulation: warm blanket given to patient. rv 23:24 CT Head C Spine In Process Unspecified. EDMS 23:24 CT Facial Bones W/O Con In Process Unspecified. EDMS 03 00:19 No provider procedures requiring assistance completed. Patient did not have IV access rv during this emergency room visit. Administered Medications: 02/11 22:31 Drug: Zofran (Ondansetron) 4 mg Route: PO; rv Output: 02/12 00:19 Urine: 0ml; Total: 0ml. rv Outcome: 02/11 23:59 Discharge ordered by . rn 02/12 00:19 Discharged to home ambulatory. rv Condition: good Discharge instructions given to patient, Instructed on discharge instructions, follow up and referral plans. medication usage, Demonstrated understanding of instructions, follow-up care, medications, Prescriptions given X 1. 00:19 Patient's length of stay was not longer than 2 hours. rv 00:20 Patient left the ED. rv Signatures: Dispatcher [employer] [facility] Gerson Sloan MD MD rn Garcia, Rubi rg4 Aleksey Yung, Ricky Muller RN, RN RN ll1
--- NOTE | 2021-02-12 00:01 | EDPHYS ---
Physician Documentation [facility] Name: Yue Desir Age: 45 yrs Sex: Female : 1975 Arrival Date: 02/11/2021 Time: 21:55 Bed 14 Private MD: ED Physician Gerson Sloan HPI: 02/11 22:15 This 45 yrs old Female presents to ER via Ambulatory with complaints of Fall rn Injury. 22:15 Details of fall: The patient fell from a height, unknown number of stairs. Onset: The rn symptoms/episode began/occurred 1 week(s) ago. Associated injuries: The patient sustained injury to the head, neck injury, right ankle. Severity of symptoms: At their worst the symptoms were mild, in the emergency department the symptoms are unchanged. The patient has not experienced similar symptoms in the past. The patient has not recently seen a physician. Unknown if LOC, no blood thinners. . Historical: - Allergies: 22:03 Ciprofloxacin; ll1 22:03 Dilantin; ll1 22:03 HYDROCODONE; ll1 22:03 Iodine; ll1 22:03 Phenergan; ll1 22:03 Tegretol; ll1 - PMHx: 22:03 Migraines; Seizures; ll1 - PSHx: 22:03 Hysterectomy; Cholecystectomy; Appendectomy; ll1 - Immunization history:: Flu vaccine is not up to date. - Social history:: Smoking status: Smoking status: Patient denies any tobacco usage or history of. - Immunization history: Last tetanus immunization: unknown. - Family history:: not pertinent. - Hospitalizations: : No recent hospitalization is reported. ROS: 22:15 Constitutional: Negative for fever, chills, and weight loss, Eyes: + bruising around rn left eye Neck: + mild neck pain Cardiovascular: Negative for chest pain, palpitations, and edema, Respiratory: Negative for shortness of breath, cough, wheezing, and pleuritic chest pain, Abdomen/GI: + nausea and vomiting MS/Extremity: + right ankle swelling and pain Skin: + bruising to left eye and right ankle Neuro: Negative for weakness, numbness, tingling, and seizure. 22:15 All other systems are negative. Exam: 22:15 Constitutional: This is a well developed, well nourished patient who is awake, alert, rn and in no acute distress. Head/Face: + healing ecchymosis and swelling left periorbital region and face, no bony tenderness Eyes: Pupils equal round and reactive to light, extra-ocular motions intact. Neck: No midline tenderness Cardiovascular: Regular rate and rhythm. No pulse deficits. Respiratory: Speaking full sentences. No increased work of breathing, no retractions or nasal flaring. Abdomen/GI: Soft, non-tender Skin: Warm, dry MS/ Extremity: Pulses equal, no cyanosis. Neurovascular intact. + mild swelling and ecchymosis right external ankle with near FROM Neuro: Awake and alert, GCS 15, oriented to person, place, time, and situation. Cranial nerves II-XII grossly intact. Motor strength 5/5 in all extremities. Sensory grossly intact. Cerebellar exam normal. Vital Signs: 21:59 BP 133 / 90; Pulse 68; Resp 17; Temp 98.0; Pulse Ox 100% ; Height 5 ft. 6 in. (167.64 ll1 cm); Pain 9/10; 21:59 Weight 83.91 kg; ll1 23:54 BP 115 / 69; Pulse 55; Resp 16; Pulse Ox 97% ; rv Beaver Coma Score: 22:59 Eye Response: spontaneous(4). Verbal Response: oriented(5). Motor Response: obeys rv commands(6). Total: 15. 14 00:20 Eye Response: spontaneous(4). Verbal Response: oriented(5). Motor Response: obeys rv commands(6). Total: 15. Trauma Score (Adult): 02/11 22:59 Eye Response: spontaneous(1); Verbal Response: oriented(1); Motor Response: obeys rv commands(2); Systolic BP: > 89 mm Hg(4); Respiratory Rate: 10 to 29 per min(4); Jd Score: 15; Trauma Score: 12 MDM: 22:06 Patient medically screened. rn 23:27 Differential diagnosis: closed head injury, contusion, fracture, sprain, strain. Data rn reviewed: vital signs, nurses notes. Data reviewed: radiologic studies, CT scan, plain films, and as a result, I will discharge patient. Test interpretation: by ED physician or midlevel provider: plain radiologic studies, Xray right ankle neg for acute fracture/dislocation. Counseling: I had a detailed discussion with the patient and/or guardian regarding: the historical points, exam findings, and any diagnostic results supporting the discharge/admit diagnosis, radiology results, the need for outpatient follow up, to return to the emergency department if symptoms worsen or persist or if there are any questions or concerns that arise at home. Special discussion: I discussed with the patient/guardian in detail that at this point there is no indication for admission to the hospital. It is understood, however, that if the symptoms persist or worsen the patient needs to return immediately for re-evaluation. 23:59 ED course: CT head/face/neck neg for acute abnormality.. rn 02/11 22:15 Order name: CT Head C Spine rn 02/11 22:15 Order name: CT Facial Bones W/O Con rn 02/11 22:15 Order name: XRAY Ankle RIGHT 3 view rn Administered Medications: 22:31 Drug: Zofran (Ondansetron) 4 mg Route: PO; rv Disposition: 02/11/21 23:59 Discharged to Home. Impression: Concussion, Sprain of other ligament of right ankle. - Condition is Stable. - Discharge Instructions: Concussion, Adult, Post-Concussion Syndrome. - Prescriptions for Zofran ODT 4 mg Oral tablet,disintegrating - place 1 tablet by TRANSLINGUAL route every 8 hours As needed; 20 tablet. - Medication Reconciliation Form, Thank You Letter, Antibiotic Education, Prescription Opioid Use form. - Follow up: Private Physician; When: As needed; Reason: Recheck today's complaints, Re-evaluation by your physician. - Problem is new. - Symptoms have improved. Signatures: Dispatcher [employer] EDMS Gerson Sloan MD MD rn Vicente, Ronaldo, RN RN rv Lewis, Lynsay, RN RN ll1 Corrections: (The following items were deleted from the chart) 02/12 00:20 02/11 23:59 02/11/2021 23:59 Discharged to Home. Impression: Concussion; Sprain of rv other ligament of right ankle. Condition is Stable. Discharge Instructions: Concussion, Adult, Post-Concussion Syndrome. Prescriptions for Zofran ODT 4 mg Oral tablet,disintegrating - place 1 tablet by TRANSLINGUAL route every 8 hours As needed; 20 tablet. and Forms are Medication Reconciliation Form, Thank You Letter, Antibiotic Education, Prescription Opioid Use. Follow up: Private Physician; When: As needed; Reason: Recheck today's complaints, Re-evaluation by your physician. Problem is new. Symptoms have improved. rn
[2021-02-12 00:31] VITALS: TEMP 98
[2021-02-12 00:32] VITALS: BP 115/69; O2SAT 97
--- NOTE | 2021-02-12 08:33 | RAD REPORT ---
EXAM DESCRIPTION: RAD - Ankle Right 3 View - 02/11/2021 10:51 pm CLINICAL HISTORY: PAIN, fall with twisting injury COMPARISON: No comparisons FINDINGS: No fracture, dislocation or periosteal reaction. No joint effusion seen. No joint space na rrowing. Mild soft tissue swelling is evident. Patient has small Achilles spur and a small to moderat e-sized plantar spur. IMPRESSION: Mild soft tissue swelling around the right ankle. No acute bone or joint finding.
--- NOTE | 2021-02-13 12:38 | RAD REPORT ---
EXAM DESCRIPTION: CT - CTHCSPWOC - 02/12/2021 6:25 am CLINICAL HISTORY: The patient is 45 years old and is Female; fall down stairs 1 week ago TECHNIQUE: Axial computed tomography images of the head/brain and cervical spine without intravenous contrast. Sagittal and coronal reformatted images were created and reviewed. This CT exam was pe rformed using one or more of the following dose reduction techniques: automated exposure control, a djustment of the mA and/or kV according to patient size, and/or use of iterative reconstruction techn ique. COMPARISON: No relevant prior studies available. FINDINGS: Brain: Unremarkable. No hemorrhage. No significant white matter disease. No edema. Ventricles: Unremarkable. No ventriculomegaly. Skull: No acute fracture. Sinuses: Maxillary sinus mucosal thickening. Mastoid air cells: Unremarkable as visualized. No mastoid effusion. Vertebrae: Reversal of the normal cervical lordosis. No acute fracture. Discs/spinal canal/neural foramina: No acute findings. No spinal canal stenosis. Soft tissues: Unremarkable. IMPRESSION: 1. No acute intracranial abnormality. 2. No acute cervical spine fracture or subluxation. Electronically signed by: Florentin Zamora MD 02/11/2021 11:37 PM ENT NURSE Due to temporary technical issues with the PACS/Fluency reporting system, reports are being signed by the in house radiologists without review as a courtesy to insure prompt reporting. The interpreting radiologist is fully responsible for the content of the report.
--- NOTE | 2021-02-13 14:07 | RAD REPORT ---
EXAM DESCRIPTION: CT - Facial Bones W/ Mpr - 02/12/2021 6:26 am CLINICAL HISTORY: The patient is 45 years old and is Female; FACIAL PAIN TECHNIQUE: Axial computed tomography images of the face without intravenous contrast. Sagittal and coronal reformatted images were created and reviewed. This CT exam was performed using one or more of the following dose reduction techniques: automated exposure control, adjustment of the mA and/o r kV according to patient size, and/or use of iterative reconstruction technique. COMPARISON: No relevant prior studies available. FINDINGS: Bones/joints: No acute fracture. Soft tissues: Unremarkable. Orbits: Unremarkable. Sinuses: Unremarkable. No air-fluid levels. IMPRESSION: Normal maxillofacial CT. Electronically signed by: Florentin Zamora MD 02/11/2021 11:38 PM ANIME ARTIST Due to temporary technical issues with the PACS/Fluency reporting system, reports are being signed by the in house radiologists without review as a courtesy to insure prompt reporting. The interpreting radiologist is fully responsible for the content of the report.
== END 2021-02-12 00:20 | disposition home or self-care (01) ==
LOC: ER 21:53
DX: S06.0X0A Concussion without loss of consciousness, initial encounter (principal); S93.491A Sprain of other ligament of right ankle, initial encounter; W10.8XXA Fall (on) (from) other stairs and steps, initial encounter; Y93.9 Activity, unspecified; Y92.9 Unspecified place or not applicable; Z88.1 Allergy status to other antibiotic agents; Z88.5 Allergy status to narcotic agent; Z88.8 Allergy status to other drugs, medicaments and biological substances; Z91.048 Other nonmedicinal substance allergy status
CPT/HCPCS: 70450; 70486; 72125; 76377; 99284

== ENCOUNTER 2021-08-12 13:44 | Emergency (ER) | payer SELFPAY ==
--- OUTSIDE RECORDS SUMMARY | 2021-08-12 13:47 | XMS REPORT | Continuity of Care Document ---
:1975 Author Organization [facility] t Address [address] [place] [id number] Care Team Providers Name Role Phone Unavailable Unavailable Unavailable Problems This patient has no known problems. Allergies, Adverse Reactions, Alerts This patient has no known allergies or adverse reactions. Medications This patient has no known medications. Procedures This patient has no known procedures. Results This patient has no known results.
[2021-08-12] MEDS ORDERED: METOPROLOL TAR 25 MG TAB ONE (14:46)
[2021-08-12 14:48] LABS: Potassium 3.9 mmol/L (3.5-5.1)
[2021-08-12 15:06] LABS: Absolute Lymphocytes (CBC) 1.3 K/uL (0.7-4.9); Basophils % 0.1 % (0-1.3); Hematocrit 38.2 % (36.0-45.0); Lymphocytes % 13.2 % (15.3-44.8); MPV 7.7 fL (7.6-11.3); RBC Red Blood Cell Count 4.08 M/uL (3.86-4.86)
--- NOTE | 2021-08-12 15:53 | RAD REPORT ---
EXAM DESCRIPTION: US - Follow Up Breast Axilla Ltd - 08/12/2021 2:55 pm CLINICAL HISTORY: right breast redness and pain, eval for abscess COMPARISON: No comparisonsNo comparisons FINDINGS: 2.6 cm x 2.3 cm hypoechoic lesion with increased through transmission which is consistent with a cyst. There is a second more complex lesion measuring 1.9 x 1.7 cm that is cystic and solid. P art of this lesion has increased through transmission. This is at the 9 o'clock position. IMPRESSION: At the patient's site of pain, there is a simple cyst measuring 1.9 cm. There is a more complex solid and cystic lesion at the 9 o'clock position that has more indeterminate imaging feature s. An abscess is considered unlikely. A short-term follow-up ultrasound is recommended to ensure stab ility. Also, the patient is of age and should probably have a diagnostic mammogram assuming no recent imaging.
--- NOTE | 2021-08-12 16:10 | ER ---
Nurse's Notes [facility] Name: Yue Desir Age: 45 yrs Sex: Female : 1975 Arrival Date: 08/12/2021 Time: 13:47 Bed 13 Private MD: Diagnosis: Cellulitis of other sites-Right breast;Solitary cyst of right breast-Complex Presentation: 08/12 13:56 Chief complaint: Patient states: Pt was exposed to Hydrochloric Acid at work on vg1 07/15/21. Pt c/o Right breast pain, site is red, hot to touch and swollen and tender to touch; pt states is concerned if it has anything to do with chemical exposure in July. Coronavirus screen: Vaccine status: Patient reports being unvaccinated. Ebola Screen: Patient negative for fever greater than or equal to 101.5 degrees Fahrenheit, and additional compatible Ebola Virus Disease symptoms. Initial Sepsis Screen: Does the patient meet any 2 criteria? No. Patient's initial sepsis screen is negative. Does the patient have a suspected source of infection? No. Patient's initial sepsis screen is negative. Risk Assessment: Do you want to hurt yourself or someone else? Patient reports no desire to harm self or others. Onset of symptoms was August 09, 2021. 13:56 Method Of Arrival: Ambulatory vg1 13:56 Acuity: FREDRICK 3 vg1 Triage Assessment: 13:59 General: Appears in no apparent distress. uncomfortable, Behavior is calm, cooperative. vg1 Pain: Complains of pain in right breast Pain currently is 10 out of 10 on a pain scale. 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 - Social history:: Smoking status: Patient denies any tobacco usage or history of. - Family history:: not pertinent. - Hospitalizations: : No recent hospitalization is reported. Screenin:35 Abuse screen: Denies threats or abuse. Denies injuries from another. Nutritional zb screening: No deficits noted. Tuberculosis screening: No symptoms or risk factors identified. Fall Risk None identified. Assessment: 14:20 Reassessment: Niru SWAN at bedside discussing care with patient. zb 14:32 General: Appears uncomfortable, Behavior is calm. Pain: Complains of pain in right zb breast Pain currently is 1 out of 10 on a pain scale. at worst was 10 out of 10 on a pain scale. Quality of pain is described as aching, tender, Pain began 2-3 days ago. Is continuous. Neuro: Level of Consciousness is awake, alert, obeys commands, Oriented to person, place, Recruitment Specialist are equal bilaterally Moves all extremities. Full function Gait is steady. Cardiovascular: Capillary refill < 3 seconds in bilateral. Respiratory: Airway is patent. GI: Abdomen is flat. Derm: Skin is red, on the right breast area. Musculoskeletal: Swelling present in right breast. 14:34 Reassessment: US at bedside. zb 15:13 Reassessment: Patient appears in no apparent distress at this time. Patient and/or zb family updated on plan of care and expected duration. Pain level reassessed. Patient is alert, oriented x 3, equal unlabored respirations, skin warm/dry/pink. SO remains at bedside. 16:08 Reassessment: ecp at bedside discussing care. zb 16:27 Reassessment: Patient appears in no apparent distress at this time. Patient and/or zb family updated on plan of care and expected duration. Pain level reassessed. Patient is alert, oriented x 3, equal unlabored respirations, skin warm/dry/pink. d/c instructions given pt patient and SO. advised of non-pharmacologic therapy. Vital Signs: 13:56 BP 114 / 76; Pulse 84; Resp 16; Temp 98.4(O); Pulse Ox 100% ; Weight 83.91 kg; Height 5 vg1 ft. 6 in. (167.64 cm); Pain 10/10; 14:35 BP 103 / 66; Pulse 69; Resp 16; Pulse Ox 100% on R/A; zb 15:30 BP 98 / 66; Pulse 63; Resp 16; Pulse Ox 100% on NC; zb 13:56 Body Mass Index 29.86 (83.91 kg, 167.64 cm) vg1 ED Course: 13:47 Patient arrived in ED. ds1 13:52 Gerson Sloan MD is Attending Physician. rn 13:59 Triage completed. vg1 13:59 Arm band placed on. vg1 14:08 Rossy Montague RN is Primary Nurse. zb 14:26 Inserted saline lock: 20 gauge in right antecubital area, using aseptic technique. dh4 Blood collected. 14:35 Patient has correct armband on for positive identification. Placed in gown. Bed in low zb position. Call light in reach. Adult w/ patient. Pulse ox on. NIBP on. Door closed. Noise minimized. 14:55 Follow Up Breast Axilla Ltd In Process Unspecified. EDMS 16:08 Mikey Norman MD is Referral Physician. rn 16:36 No provider procedures requiring assistance completed. IV discontinued, intact, zb bleeding controlled, No redness/swelling at site. Pressure dressing applied. Administered Medications: 14:24 Not Given (incorrectt): Metoprolol 25 mg PO once rn Outcome: 16:09 Discharge ordered by . rn 16:37 Discharged to home ambulatory. zb 16:37 Condition: stable 16:37 Discharge instructions given to patient, family, Instructed on discharge instructions, follow up and referral plans. medication usage, Demonstrated understanding of instructions, follow-up care, medications, Prescriptions given X 1. 16:37 Patient left the ED. zb Signatures: Dispatcher [employer] [facility] Arin Ellison ds1 Gerson Sloan MD MD rn Huhn, Donald 4 Huma Alvarado RN RN vg1 Rossy Montague, YESSICA RN zb
--- NOTE | 2021-08-12 16:10 | EDPHYS ---
Physician Documentation [facility] Name: Yue Desir Age: 45 yrs Sex: Female : 1975 Arrival Date: 08/12/2021 Time: 13:47 Bed 13 Private MD: ED Physician Gerson Sloan HPI: 08/12 14:18 This 45 yrs old Female presents to ER via Ambulatory with complaints of rn Breast Problem - Redness W/Pain. 14:18 The patient or guardian reports chest pain that is located primarily in the Right rn breast. Onset: 2 day(s) ago. The pain does not radiate. Associated signs and symptoms: Pertinent negatives: cough, lower extremity swelling, shortness of breath. The chest pain is described as aching, burning. Duration: The patient or guardian reports a single episode, that is still ongoing. Modifying factors: The symptoms are alleviated by nothing. the symptoms are aggravated by palpation of area. Severity of pain: At its worst the pain was moderate in the emergency department the pain is unchanged. The patient has not experienced similar symptoms in the past. The patient has not recently seen a physician. Patient reports right breast pain, burning sensation, worse with palpation and movement of breast tissue. Reports abscesses and skin infections in the past and this feels similar. No weight loss. No known breast cancer. No nipple changes or drainage. No fever. Reports began 2 days ago and slowly getting worse.. 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 - Social history:: Smoking status: Patient denies any tobacco usage or history of. - Family history:: not pertinent. - Hospitalizations: : No recent hospitalization is reported. ROS: 14:18 Constitutional: Negative for fever, chills, and weight loss, Cardiovascular: Negative rn for palpitations, and edema, Respiratory: Negative for shortness of breath, cough, wheezing, and pleuritic chest pain, Skin: Positive for right breast skin changes and redness Exam: 14:18 Constitutional: This is a well developed, well nourished patient who is awake, alert, rn and in no acute distress. Head/Face: Normocephalic, atraumatic. Chest/axilla: Right breast with palpable mass at 9 o'clock position with overlying erythema. Normal nipple without retraction or drainage. Minimal lymphadenopathy left axilla underneath previous surgical scar. No axillary abscess. Cardiovascular: Regular rate and rhythm. No pulse deficits. Respiratory: Speaking full sentences, unlabored. No increased work of breathing, no retractions or nasal flaring. Vital Signs: 13:56 BP 114 / 76; Pulse 84; Resp 16; Temp 98.4(O); Pulse Ox 100% ; Weight 83.91 kg; Height 5 vg1 ft. 6 in. (167.64 cm); Pain 10/10; 14:35 BP 103 / 66; Pulse 69; Resp 16; Pulse Ox 100% on R/A; zb 15:30 BP 98 / 66; Pulse 63; Resp 16; Pulse Ox 100% on NC; zb 13:56 Body Mass Index 29.86 (83.91 kg, 167.64 cm) vg1 MDM: 14:01 Patient medically screened. rn 15:55 Differential diagnosis: Breast abscess, mastitis, breast cancer, breast mass. Data rn reviewed: vital signs, nurses notes, lab test result(s), radiologic studies, ultrasound, and as a result, I will discharge patient. Counseling: I had a detailed discussion with the patient and/or guardian regarding: the historical points, exam findings, and any diagnostic results supporting the discharge/admit diagnosis, radiology results, the need for outpatient follow up, to return to the emergency department if symptoms worsen or persist or if there are any questions or concerns that arise at home. Response to treatment: There is no appreciated change of the patient's symptoms at this time, and as a result, I will discharge patient. Special discussion: I discussed with the patient/guardian in detail that at this point there is no indication for admission to the hospital. It is understood, however, that if the symptoms persist or worsen the patient needs to return immediately for re-evaluation. Based on the history and exam findings, there is no indication for further emergent testing or inpatient evaluation. I discussed with the patient/guardian the need to see the general surgeon for further evaluation of the symptoms. I discussed with the patient/guardian the need to see the OB Gyne specialist for further evaluation of the symptoms. ED course: Ultrasound shows complex cystic mass in right breast. Radiology says abscess unlikely. Patient afebrile. Patient without elevation in white blood cell count. Will place on antibiotics given warmth and redness on skin but will need follow-up mammography and follow-up with general surgery to assess stability of ultrasound findings.. 08/12 14:13 Order name: CBC with Diff; Complete Time: 15:13 rn 08/12 14:13 Order name: Basic Metabolic Panel; Complete Time: 15:13 rn 08/12 14:13 Order name: IV Start; Complete Time: 14:26 rn 08/12 14:55 Order name: Follow Up Breast Axilla Ltd; Complete Time: 15:54 EDMS Administered Medications: 14:24 Not Given (incorrectt): Metoprolol 25 mg PO once rn Disposition Summary: 08/12/21 16:09 Discharge Ordered Location: Home rn Problem: new rn Symptoms: are unchanged rn Condition: Stable rn Diagnosis - Cellulitis of other sites - Right breast rn - Solitary cyst of right breast - Complex rn Followup: rn - With: Mikey Norman MD - When: 2 - 3 days - Reason: Recheck today's complaints, Re-evaluation by your physician Discharge Instructions: - Discharge Summary Sheet rn - Breast Cyst rn - Cellulitis, Adult rn Forms: - Medication Reconciliation Form rn - Thank You Letter 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 EDMS EDMS
[2021-08-12 16:47] VITALS: TEMP 98.4; O2SAT 100
[2021-08-12 16:49] VITALS: BP 98/66
== END 2021-08-12 16:37 | disposition home or self-care (01) ==
LOC: ER 13:44
DX: L03.818 Cellulitis of other sites (principal); N60.01 Solitary cyst of right breast; Z88.1 Allergy status to other antibiotic agents; Z88.5 Allergy status to narcotic agent; Z88.8 Allergy status to other drugs, medicaments and biological substances; Z91.048 Other nonmedicinal substance allergy status
CPT/HCPCS: 36415; 76642; 80048; 85025; 99284

== ENCOUNTER 2023-07-17 16:05 | Observation (INO) | payer OTHER, SELFPAY ==
--- OUTSIDE RECORDS SUMMARY | 2023-07-17 16:14 | XMS REPORT | Continuity of Care Document ---
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 embolism (PE) A D-Dimer value less than 0.50 ?g/ml (FEU) has a negative predicative value of 96 to 100% (95% CI)and 97 to 100% (95% CI) as an aid in the diagnosis of deep vein thrombosis (DVT) and pulmonary embolism when there is low or moderate pretest probability of PE or DVT. D-Dimer values are expressed in initial fibrinogen equivalent units (FEU)" The assay results should be used with other information, including the clinical context, in forming a diagnosis. Lab Interpretation Normal (test code = 29766-8) [facility]11:57 Test Item Value Reference Range Interpretation Comments MAGNESIUM (test code = 4901073212) 1.9 mg/dL 1.7-2.4 Lab Interpretation (test code = Normal 76925-3) [facility] (89885)2021-04-02 18:11:37 Test Item Value Reference Range Interpretation Comments NA (test code = 138 mmol/L 135-145 6328761888) K (test code = 4.0 mmol/L 3.5-5.0 2302162395) CL (test code = 103 mmol/L 98-108 8164549495) CO2 TOTAL (test code = 24 mmol/L 23-31 7812915841) AGAP (test code = 2-16 6820123876) BUN (test code = 9 mg/dL 7-23 3681513314) GLUCOSE (test code = 98 mg/dL 70-110 7634413928) CREATININE (test code = 0.93 mg/dL 0.50-1.04 4011213472) TOTAL BILI (test code = 0.5 mg/dL 0.1-1.1 1513286260) CALCIUM (test code = 9.2 mg/dL 8.6-10.6 2097902973) T PROTEIN (test code = 8.1 g/dL 6.3-8.2 3775387146) ALBUMIN (test code = 4.7 g/dL 3.5-5.0 7520000808) ALK PHOS (test code = 78 U/L 34-122 9454095924) ALTv (test code = 46 U/L 5-35 H 2-6) AST(SGOT) (test code = 50 U/L 13-40 H 4239933474) eGFR (test code = mL/min/1.73m2 1369413519) JENNIFFER (test code = JENNIFFER) Association of Glomerular Filtration Rate (GFR) and Staging of Kidney Disease* + --+ --+ ------+| GFR (mL/min/1.73 m2) ?| With Kidney Damage ?| ?Without Kidney Damage+ --------+ --------+ +| ?>90 ?| ?Stage one ?| ? Normal ?+ ---+ ---+ -------+| ?60-89 ?| ?Stage two ?| ? Decreased GFR ? + --+ --+ ------+| ?30-59 ?| ?Stage three ?| ? Stage three ? + --+ --+ ------+| ?15-29 ?| ?Stage four ? | ? Stage four ?+ ---+ ---+ -------+| ?<15 (or dialysis) ? ?| ?Stage five ? | ? Stage five ?+ ---+ ---+ -------+ *Each stage assumes the associated GFR level has been in effect for at least three months. ?Stages 1 to 5, with or without kidney disease, indicate chronic kidney disease. Notes: Determination of stages one and two (with eGFR >59mL/min/1.73 m2) requires estimation of kidney damage for at least three months as defined by structural or functional abnormalities of the kidney, manifested by either:Pathological abnormalities or Markers of kidney damage (including abnormalities in the composition of the blood or urine or abnormalities in imaging tests). Lab Interpretation Abnormal (test code = 23928-9) [facility] WITH [id number] 18:01:20 Test Item Value Reference Range Interpretation Comments WBC (test code = See_Comment H [Automated 6690-2) message] The system which generated this result transmit alesia reference range : 4.30 - 11.10 10*3/?L. The reference range was not used to interpret this result as normal/abnormal . RBC (test code = See_Comment [Automated 789-8) message] The system which generated this result transmit alesia reference range : 3.93 - 5.25 10*6/?L. The reference range was not used to interpret this result as normal/abnormal . HGB (test code = 15.0 g/dL 11.6-15.0 718-7) HCT (test code = 44.0 % 35.7-45.2 4544-3) MCV (test code = 91.9 fL 80.6-95.5 787-2) MCH (test code = 31.3 pg 25.9-32.8 785-6) MCHC (test code = 34.1 g/dL 31.6-35.1 786-4) RDW-SD (test code = 41.7 fL 39.0-49.9 42037-0) RDW-CV (test code = 12.3 % 12.0-15.5 788-0) PLT (test code = See_Comment [Automated 777-3) message] The system which generated this result transmit alesia reference range : 166 - 358 10*3/ ?L. The reference range was not u sed to interpret th is result as normal/abnormal . MPV (test code = 9.5 fL 9.5-12.9 14093-7) NRBC/100 WBC (test See_Comment [Automat ed code = 2156958156) message] The system which generated this result transmit alesia reference range : 0.0 - 10.0 /100 WBCs. The reference range was not used to interpret this result as normal/abnormal . NRBC x10^3 (test code <0.01 See_Comment [Auto mated = 0908758906) message] The system which generated this result transmit alesia reference range : 10*3/?L. The reference range was not used to interpret this result as normal/abnormal . GRAN MAT (NEUT) % 81.4 % (test code = 770-8) IMM GRAN % (test code 0.50 % = 9105517520) LYMPH % (test code = 12.5 % 736-9) MONO % (test code = 4.4 % 5905-5) EOS % (test code = 0.6 % 713-8) BASO % (test code = 0.6 % 706-2) GRAN MAT x10^3(ANC) 10.12 10*3/uL 1.88-7.09 H (test code = 3062310859) IMM GRAN x10^3 (test 0.06 10*3/uL 0.00-0.06 code = 0334099751) LYMPH x10^3 (test code 1.55 10*3/uL 1.32-3.29 = 731-0) MONO x10^3 (test code 0.54 10*3/uL 0.33-0.92 = 742-7) EOS x10^3 (test code = 0.07 10*3/uL 0.03-0.39 711-2) BASO x10^3 (test code 0.07 10*3/uL 0.01-0.07 = 704-7) Lab Interpretation Abnormal (test code = 84517-8) [id number] 17:17:00 Test Item Value Reference Range Interpretation Comments POCT PREG (test code = 1605) negative On board controls acceptable with present C Line (test code = 3574) POCT PREG LOT # (test code = 3575) [id number] POCT PREG TEST DATE (test 10/31/2022 code = 3576) Lab Interpretation (test code = Normal 11797-2) [facility] venous duplex LE LT Medical [address] [address] Patient Name: zhao cameron Medical Record#: [id number] [address]: [address] [place] [address] City/State/Zip: [place] [address]: Eduardo Munoz MD Phone: [phone] Insurance: Self Pay /Age/Sex: 1975/46/F Admit/Reg Date: 04/14/[address]: Katie Pack, [employer]ENTIAL[employer] ASSISTANT Location: [facility]/ PCP: PCP,UNKNOWN Date of Service: 04/14/22 Order (s): US venous duplex LELT CPT Code: 67762 Report Number: [id number] Reason for Exam: pain and swelling ORDERING PHYSICIAN: Katie Pack HISTORY: Left leg pain COMPARISON: None Permanently recorded sonographic images were stored in the PACs system. FINDINGS: Grayscale and pulse color Doppler images of the left common femoral, greater saphenous, superficial femoral, deep femoral, popliteal, peroneal, and posterior tibial veins was performed. There is normal compressibility, color-flow, waveforms, and augmentation. IMPRESSION: No DVT in the left leg. RL: [address] [facility]: [address] Dictated By: Orlando Merritt MD 04/14/222138 Signed By: Orlando Merritt MD 04/14/222140 TD/TT: 04/14/222138 Tech: TN042 cc: KAYLYN; PCPUNK* PCP,UNKNOWN ; Katie Pack NP Notes Date/Time Note Provider Source 2022-04-14 20:10:00-00:00 [facility] [address] [place] [address] Emergency Department Document Signed Patient: zhao cameron Medical Record#: [id number] : 1975 Acct:[id number] Age/Sex: 46 / F Admit/Reg Date: 04/14/22 Loc: [facility] Room: Report Number: [id number]: Eduardo Munoz MD Arrival - Arrival ED Triage Note: Patient here for left leg numbness from calf radiating upward onset earlier today, denies fall or trauma Lower Extremity Injury HPI - General Nursing note reviewed: Yes Source: patient Mode of arrival: ambulatory Limitations: no limitations Primary Care Provider: PCP,UNKNOWN - General Chief Complaint: Neuro Symptoms/Deficit Stated Complaint: left leg numbness - History of Present Illness HPI Narrative: This evaluation 46-year-old female comes in with complaint of left posterior calf numbness tightness swelling and pain onset toda y. Denies any injury. No history of blood clots. She does have a history of migraine headache s and seizures. She states she also has a headache coming on but it is not terrible at this time. She has no primary ca re provider. (Katie Pack) - Related Data Allergies Allergy/AdvReac Type Severity Reaction Status Da te / Time carbamazepine [From Tegretol] Allergy Unknown Ve rified 04/14/22 18:32 iodine Allergy Unknown Verified 04/14/22 18:32 phenytoin [From Dilantin] Allergy Unknown Verifi ed 04/14/22 18:32 promethazine [From Phenergan] Allergy Unknown Ve rified 04/14/22 18:32 Review of Systems Constitutional: Denies: chills, fever Cardiovascular: Denies: chest pain Respiratory: Denies: shortness of breath Gastrointestinal: Denies: abdominal pain Musculoskeletal: Reports: ot her (Pain swelling and tenderness to posterior left calf, pain with flexion of the left foot) Past Medical/Surgical History Medical History: Medical History (Last Updated 04/14/22 @ 18:36 Robert Sandra RN) Headache (Medical) R51.9 Seizure (Medical) R56.9 Family/Social History - Social History Smoking Status: Never smoker 1. How Often Do You Have a Drink Containing Alco hol: a. Never Physical Exam Triage Vital Signs: Temperature 36.7 C 04/14/22 18:32 Temperature Source Oral 04/14/22 18:32 Pulse Rate 83 04/14/22 18:32 Respiratory Rate 20 04/14/22 18:32 Blood Pressure 125/87 04/14/22 18:32 Blood Pressure Mean 99 04/14/22 18:32 O2 Sat by Pulse Oximetry 99 04/14/22 18:32 Oxygen Delivery Method 04/14/22 18:32 Pain Intensity 7 04/14/22 18:32 Physical Exam: CONSTITUTIONAL: _AAO in no acute distress SKIN: _Warm, dry, color appropriate to ethnicity and intact without rash HEENT: Mouth is moist, there is no pharyngeal erythema, no tonsillar swelling, uvula is midline PULMONARY: _Normal chest ris e and fall, no respiratory distress or stridor. Lungs clear bilaterally no rales rhonchi or wheezing CARDIOVASCULAR: _distal extremities are warm and well perfused. NEUROLOGIC: _GCS of 15, A O x 4, normal speech, moves all extremities, no focal neurological findings MUSCULOSKELETAL: _No gross d eformities, atraumatic, no erythema noted, no swelling noted no bruising or other abnormal findings PSYCHIATRIC: _Normal mood and affect (Suman Pack) Results/Orders - Results and Orders Medications Ordered: Discontinued Medications Ketorolac Tromethamine (Ketorolac 30 Mg/Ml Inj) 30 mg IM ONCE ONE Stop: 04/14/22 19:34 Last Admin: 04/14/22 19:52 Dose: 30 mg Documented by: [id number] Radiology Orders: Radiology Orders 04/14/22 19:32 US venous duplex LE LT Stat MDM/COURSE Vital Signs Temperature 36.7 C 04/14/22 18:32 Pulse Rate 83 04/14/22 18:32 Respiratory Rate 20 04/14/22 18:32 Blood Pressure 125/87 04/14/22 18:32 O2 Sat by Pulse Oximetry 99 04/14/22 18:32 Temperature 36.7 C 04/14/22 18:32 Pulse Rate 83 04/14/22 18:32 Respiratory Rate 20 04/14/22 18:32 Blood Pressure 125/87 04/14/22 18:32 O2 Sat by Pulse Oximetry 99 04/14/22 18:32 - [facility] Medical Decision Making Narrative: 04/14/22 22:00 Ultrasound is negative for a ny acute findings, patient will be discharged home with medications to manage pain follow-up with p [facility] care provider of her choosing. The results of pertinent diagnostic studies and exam findings were discussed. The patients diagnosis and plan of care were discussed with the patient a nd present family. The patient and/or present family expressed understanding of the diagnos is and plan. The nurse was instructed to provide written instructions and appropriate follow-up in formation. The patient understands their need and responsibility to obtain additional follow-up as instructed. The risks of medications administered and prescribed were discussed with the patient a nd family present. Patient was instructed to return to the emergency department immediately should the symptoms retur n or worsen. (Katie Pack) Discharge Plan - Discharge Clinical Impression: Myalgia Disposition: Home or Self-Care Condition: Good Instructions: ED Myalgias Care Plan Goals: The ultrasound was negative for any acute findings, it may just be a strained muscle. Take Tylenol or ibuprofen as needed for p ain and follow-up with primary care provider for today's complaints. If you have any new or worsenin g symptoms may return to the emergency department for re-evaluation. Prescriptions: New ibuprofen 600 mg tablet 600 mg PO Q6H PRN (Reason: Pain) Qty: 30 RF: 0 Prescription Printed Referrals: [facility] [Non-Staff] - PCP,UNKNOWN [Primary Care Provider] - Print Language: Divehi Dictated By: Katie Pack NP Signed By: Katie Pack NP 04/14/22 2203 Eduardo Munoz MD 04/16/22 0547 DD/ 09 TD/TT: 04/14/222009 Band Sawyer: KAYLYN cc: PCPUNK* PCP,UNKNOWN 2017-07-16 23:11:26-00:00 EXAM: Right Shoulder series DX 3 views [facility] DATE: 07/16/2017 10:53 PM CDT INDICATION: - pain post trauma COMPARISON: None. IMPRESSION: No definite obie s acute fracture or dislocation detected. Grossly normal glenohumeral and acromioclavicular joints. SL: AC 2017-07-16 23:11:26-00:00 Study: 3 views of left elbow joint [facility] History: Elbow injury Comments: Normal bone mineralization. No acute fracture or dislocation. No radiopaque foreign bodies. IMPRESSION: No acute fracture or dislocation. 2017-07-16 23:11:26-00:00 EXAM: Left Forearm 2 views DX [facility] DATE: 07/16/2017 10:53 PM CDT INDICATION: Pain Post Trauma - pain post trauma COMPARISON: None. IMPRESSION: No definite obie s acute fracture or dislocation detected. The radial head is grossly intact. SL: AC 2017-07-16 23:11:26-00:00 EXAM: Right Shoulder series DX 3 views [facility] DATE: 07/16/2017 10:53 PM CDT INDICATION: - pain post trauma COMPARISON: None. IMPRESSION: No definite obie s acute fracture or dislocation detected. Grossly normal glenohumeral and acromioclavicular joints. SL: JNGUSERG 2017-07-16 23:11:26-00:00 Study: 3 views of left elbow joint [facility] History: Elbow injury Comments: Normal bone mineralization. No acute fracture or dislocation. No radiopaque foreign bodies. IMPRESSION: No acute fracture or dislocation. 2017-07-16 23:11:26-00:00 EXAM: Left Forearm 2 views DX [facility] DATE: 07/16/2017 10:53 PM CDT INDICATION: Pain Post Trauma - pain post trauma COMPARISON: None. IMPRESSION: No definite obie s acute fracture or dislocation detected. The radial head is grossly intact. SL: JNGUYEN-DIANE
--- NOTE | 2023-07-17 17:30 | RAD REPORT ---
EXAM DESCRIPTION: CT - CTFB CLINICAL HISTORY: FACIAL PAIN Dental pain COMPARISON: <Comparisons> TECHNIQUE: Axial 2 mm thick images of the face were obtained with sagittal and coronal reconstructio n images. All CT scans are performed using dose optimization technique as appropriate and may include automated exposure control or mA/KV adjustment according to patient size. FINDINGS: No acute facial bone fracture is seen.No periapical abscess seen.The mandible is intact. The globes and orbital contents are grossly unremarkable.The paranasal sinuses and mastoids are essen tially clear. IMPRESSION: No acute process is demonstrated.
[2023-07-17 19:55] LABS: Absolute Lymphocytes (CBC) 1.7 K/uL (0.7-4.9); Hematocrit 42.5 % (36.0-45.0); Lymphocytes % 17.9 % (15.3-44.8); MCV 92.8 fL (80-100); MPV 7.7 fL (7.6-11.3); Platelets 307 thou/uL (152-406); RBC Red Blood Cell Count 4.58 M/uL (3.86-4.86)
[2023-07-17 20:04] LABS: Barbiturates NEGATIVE (NEGATIVE); Benzodiazepines NEGATIVE (NEGATIVE); Cocaine NEGATIVE (NEGATIVE); METHAMPHETAM NEGATIVE (NEGATIVE); Methadone NEGATIVE (NEGATIVE); Opiates NEGATIVE (NEGATIVE); Phencyclidine NEGATIVE (NEGATIVE); THC Cannibis NEGATIVE (NEGATIVE)
--- NOTE | 2023-07-17 20:08 | EDPHYS ---
Physician Documentation [facility] Name: Yue Desir Age: 47 yrs Sex: Female : 1975 Arrival Date: 07/17/2023 Time: 16:05 Bed Treatment Private MD: ED Physician Cricket Lyon HPI: 07/17 17:35 This 47 yrs old Female presents to ER via Ambulatory with complaints of Toothache, sb4 Nausea. 17:35 The patient presents with pain. The problem is located in the upper left second molar. sb4 Onset: The symptoms/episode began/occurred 2 day(s) ago. Duration: The symptoms are continuous, and are steadily getting worse. Modifying factors: The symptoms are alleviated by nothing, the symptoms are aggravated by chewing. Associated signs and symptoms: Pertinent positives: fever, nausea, pain, redness in area. The patient has not experienced similar symptoms in the past. patient states her upper left molar started hurting 2 days ago and has slowly gotten worse. she states now it is causing her left sided facial pain, nausea, and blurred vision. she reports that she tried to get into the dentist today but they did not have any availability. she also reports blurry vision associated with the pain. CRYSTAL LAPPER: 23:57 LMP N/A - unknown kd3 Historical: - Allergies: 16:32 Ciprofloxacin; cm10 16:32 Dilantin; cm10 16:32 HYDROCODONE; cm10 16:32 Iodine; cm10 16:32 Phenergan; cm10 16:32 Tegretol; cm10 - PMHx: 16:32 Migraines; Seizures; cm10 - Immunization history:: Adult Immunizations. - Social history:: Smoking status: unknown. ROS: 18:32 Cardiovascular: Negative for chest pain, palpitations, and edema, Respiratory: Negative sb4 for shortness of breath, cough, wheezing, and pleuritic chest pain. 18:32 Constitutional: Positive for fever, Negative for chills. 18:32 ENT: Positive for Teeth pain facial pain. 18:32 Abdomen/GI: Positive for nausea. 18:32 Neuro: Positive for dizziness, visual changes. 18:32 All other systems are negative. Exam: 18:32 Head/Face: Normocephalic, atraumatic. Eyes: Extra-ocular motions intact. Periorbital sb4 areas with no swelling, redness, or edema. Cardiovascular: Regular rate and rhythm with a normal S1 and S2. Respiratory: Lungs have equal breath sounds bilaterally, clear to auscultation and percussion. No rales, rhonchi or wheezes noted. No increased work of breathing, no retractions or nasal flaring. Abdomen/GI: Soft, non-tender, no distension. Skin: Warm, dry with normal turgor. Normal color with no rashes, no lesions, and no evidence of cellulitis. MS/ Extremity: Pulses equal, no cyanosis. Neurovascular intact. Full, normal range of motion. Neuro: Awake and alert, GCS 15, oriented to person, place, time, and situation. Cranial nerves II-XII grossly intact. Motor strength 5/5 in all extremities. Sensory grossly intact. Cerebellar exam normal. Normal gait. 18:32 Constitutional: The patient appears awake, lethargic. 18:32 ENT: Dental exam: abscess, is not appreciated, dental caries, that is moderate, specifically in the upper left second molar. Vital Signs: 16:29 BP 117 / 86; Pulse 63; Resp 18; Temp 98.2; Pulse Ox 99% ; cm10 16:34 Weight 86.18 kg; Height 5 ft. 6 in. ; Pain 10/10; cm10 20:04 BP 130 / 84; Pulse 61; Resp 18; Pulse Ox 99% on R/A; kd3 20:44 BP 125 / 85; Pulse 84; Resp 14; Pulse Ox 99% on R/A; kd3 22:13 BP 129 / 80; Pulse 59; Resp 18; Temp 97.8(TE); Pulse Ox 100% ; kd3 22:30 BP 133 / 87; Pulse 58; Resp 18 S; Pulse Ox 100% on R/A; kd3 23:11 BP 123 / 81; Pulse 62; Resp 18; Pulse Ox 100% on R/A; kd3 23:55 BP 138 / 88; Pulse 82; Resp 18; Pulse Ox 100% on R/A; kd3 16:34 Body Mass Index 30.67 (86.18 kg, 167.64 cm) cm10 16:34 Pain Scale: Adult cm10 Visual Acuity: 22:14 Left Eye Visual acuity 20/100, ; Right Eye Visual acuity 20/20, ; Without Lenses; kd3 MDM: 16:19 Patient medically screened. sb4 18:32 Differential diagnosis: dental caries, gingivitis, dental abscess, sepsis. sb4 20:06 Data reviewed: vital signs, nurses notes, lab test result(s), radiologic studies, and sb4 as a result, I will discharge patient. Consideration of Admission/Observation Escalation of care including admission/observation considered. Counseling: I had a detailed discussion with the patient and/or guardian regarding the historical points, exam findings, and any diagnostic results supporting the discharge/admit diagnosis, lab results, radiology results, the need for outpatient follow up, a dentist. 20:20 Transition of care: After a detail discussion of the patient's case, care is sb4 transferred to Cricket Lyon MD. 07/17 16:34 Order name: CBC with Diff; Complete Time: 19:58 sb4 07/17 16:34 Order name: CMP; Complete Time: 08:05 sb4 07/17 16:34 Order name: Lactate w/ 2H reflex if indic.; Complete Time: 20:15 sb4 07/17 16:57 Order name: Urine Drug Screen; Complete Time: 20:05 sb4 07/17 20:25 Order name: Lactate w/ 2H reflex if indic.: repeat 2 hours after initial draw; Complete kdr Time: 23:14 07/17 21:10 Order name: Troponin High Sensitivity; Complete Time: 21:49 kdr 07/17 23:48 Order name: CRP hb 07/17 23:49 Order name: C-Reactive Protein; Complete Time: 08:05 EDMS 07/17 16:34 Order name: CT Facial Bones W/O Con; Complete Time: 17:34 sb4 07/17 20:25 Order name: CT Head Brain wo Cont; Complete Time: 21:49 kdr 07/17 21:10 Order name: EKG - Nurse/Tech; Complete Time: 21:27 kdr Administered Medications: 20:04 Drug: Ondansetron IVP 4 mg Route: IVP; Site: left antecubital; kd3 20:04 Drug: morphine IVP or IV 2 mg Route: IVP; Infused Over: 4 mins; Site: left antecubital; kd3 20:44 Drug: NS 0.9% IV 1000 ml Route: IV; Rate: 1 bolus; Site: left antecubital; kd3 23:11 Follow up: IV Status: Completed infusion; IV Intake: 1000ml kd3 20:45 Drug: Amoxicillin PO 875 mg Route: PO; kd3 23:11 Drug: MethylPrednisoLONE IVP 125 mg Route: IVP; Site: left antecubital; kd3 23:48 CANCELLED (Other Intervention Used): HYDROcodone-acetaminophen PO 5 mg-325 mg 1 tabs PO hb once 23:52 Drug: Meclizine PO 25 mg Route: PO; kd3 23:52 Drug: Ketorolac IVP 15 mg Route: IVP; Site: left antecubital; kd3 Disposition: 23:12 Co-signature as Attending Physician, Cricket Lyon MD I agree with the assessment and kdr plan of care. Disposition Summary: 07/17/23 23:20 Hospitalization Ordered Hospitalization Status: Observation kdr Provider: Danilo Abreu kdr Location: Telemetry/MedSurg (observation)(07/17/23 23:20) kdr Condition: Fair(07/17/23 23:20) kdr Problem: new kdr Symptoms: are unchanged kdr Bed/Room Type: Standard [facility] Room Assignment: 401(07/17/23 23:49) cg Diagnosis - Atypical facial pain kdr - Low vision, left eye, normal vision right eye kdr Forms: - Medication Reconciliation Form kdr - SBAR form kdr - Leadership Thank You Letter kdr Signatures: Dispatcher [employer] EDMS Cricket Lyon MD MD kdr Suleiman Muro, QUARTZ MINER-C QUARTZ MINER-Mary1 Brynn Alvarado RN RN cg Radha Blood RN YESSICA Sarah Pineda RN RN kd3 Tawanna Montague PAShey PALucy Almanzar, RN RN cm10 Corrections: (The following items were deleted from the chart) 16:33 16:33 Allergies: Zofran; cm10 cm10 20:19 20:06 Home sb4 sb4 20:19 20:06 Stable sb4 sb4 20:19 20:06 Dental root caries sb4 sb4 23:46 23:44 C-REACTIVE PROTEIN+C.LAB.BRZ ordered. EDMS EDMS 23:48 23:44 HYDROcodone-acetaminophen PO 5 mg-325 mg 1 tabs PO once ordered. hb hb 23:49 23:20 kdr cg
--- NOTE | 2023-07-17 20:08 | ER ---
Nurse's Notes [facility] Name: Yue Desir Age: 47 yrs Sex: Female : 1975 Arrival Date: 07/17/2023 Time: 16:05 Bed Treatment Private MD: Diagnosis: Atypical facial pain;Low vision, left eye, normal vision right eye Presentation: 07/17 16:29 Chief complaint: Patient states: tooth pain and blurred vision X2 days. Coronavirus cm10 screen: Client denies travel out of the [place] in the last 14 days. Ebola Screen: Patient denies travel to an Ebola-affected area in the 21 days before illness onset. No symptoms or risks identified at this time. Initial Sepsis Screen: Does the patient meet any 2 criteria? No. Patient's initial sepsis screen is negative. Does the patient have a suspected source of infection? Yes: Other: tooth infection. Risk Assessment: Do you want to hurt yourself or someone else? Patient reports no desire to harm self or others. Onset of symptoms was July 15, 2023. 16:29 Method Of Arrival: Ambulatory cm10 16:29 Acuity: FREDRICK 4 cm10 Triage Assessment: 20:45 EENT: Reports. kd3 ICT DEVELOPER: 23:57 LMP N/A - unknown kd3 Historical: - Allergies: 16:32 Ciprofloxacin; cm10 16:32 Dilantin; cm10 16:32 HYDROCODONE; cm10 16:32 Iodine; cm10 16:32 Phenergan; cm10 16:32 Tegretol; cm10 - PMHx: 16:32 Migraines; Seizures; cm10 - Immunization history:: Adult Immunizations. - Social history:: Smoking status: unknown. Screenin:45 [facility] ED Fall Risk Assessment (Adult) History of falling in the last 3 months, kd3 including since admission No falls in past 3 months (0 pts) Confusion or Disorientation No (0 pts) Intoxicated or Sedated No (0 pts) Impaired Gait No (0 pts) Mobility Assist Device Used No (0 pt) Altered Elimination No (0 pt) Score/Fall Risk Level 0 - 2 = Low Risk Maintained a safe environment. Abuse screen: Denies threats or abuse. Denies injuries from another. Nutritional screening: No deficits noted. Tuberculosis screening: No symptoms or risk factors identified. Assessment: 20:05 General: Appears in no apparent distress. Behavior is calm, cooperative. Pain: kd3 Complains of pain in upper left second molar. Neuro: Level of Consciousness is. 20:52 General: Pt suddenly started uncontrollably crying, stating that her chest hurts. EKG kd3 done, troponin added to labs. . 21:30 Cardiovascular: Rhythm is sinus bradycardia with PACs. kd3 22:14 General: Appears in no apparent distress. Behavior is drowsy. Neuro: Level of kd3 Consciousness is awake, alert, obeys commands, Oriented to person, place, time, situation. Respiratory: Airway is patent Trachea midline Respiratory effort is even, unlabored, Respiratory pattern is regular, symmetrical. 23:56 Reassessment: No changes from previously documented assessment. Patient and/or family kd3 updated on plan of care and expected duration. Pain level reassessed. Patient is alert, oriented x 3, equal unlabored respirations, skin warm/dry/pink. Vital Signs: 16:29 BP 117 / 86; Pulse 63; Resp 18; Temp 98.2; Pulse Ox 99% ; cm10 16:34 Weight 86.18 kg; Height 5 ft. 6 in. ; Pain 10/10; cm10 20:04 BP 130 / 84; Pulse 61; Resp 18; Pulse Ox 99% on R/A; kd3 20:44 BP 125 / 85; Pulse 84; Resp 14; Pulse Ox 99% on R/A; kd3 22:13 BP 129 / 80; Pulse 59; Resp 18; Temp 97.8(TE); Pulse Ox 100% ; kd3 22:30 BP 133 / 87; Pulse 58; Resp 18 S; Pulse Ox 100% on R/A; kd3 23:11 BP 123 / 81; Pulse 62; Resp 18; Pulse Ox 100% on R/A; kd3 23:55 BP 138 / 88; Pulse 82; Resp 18; Pulse Ox 100% on R/A; kd3 16:34 Body Mass Index 30.67 (86.18 kg, 167.64 cm) cm10 16:34 Pain Scale: Adult cm10 Visual Acuity: 22:14 Left Eye Visual acuity 20/100, ; Right Eye Visual acuity 20/20, ; Without Lenses; kd3 ED Course: 16:08 Patient arrived in ED. ts1 16:19 Tawanna Montague [facility]-C [facility]. sb4 16:19 Willian Butler MD is Attending Physician. sb4 16:32 Triage completed. cm10 16:34 Arm band placed on Patient placed in waiting room. cm10 17:12 CT Facial Bones W/O Con In Process Unspecified. EDMS 19:42 Sarah Pineda, YESSICA is Primary Nurse. kd3 19:48 Urine Drug Screen Sent. bc6 19:48 CBC with Diff Sent. bc6 19:48 CMP Sent. bc6 19:48 Lactate w/ 2H reflex if indic. Sent. bc6 19:48 Inserted saline lock: 20 gauge in left antecubital area, using aseptic technique. Blood bc6 collected. 20:05 Attending Physician role handed off by Willian Butler MD kdr 20:05 Cricket Lyon MD is Attending Physician. kdr 21:31 Patient has correct armband on for positive identification. kd3 21:34 CT Head Brain wo Cont In Process Unspecified. EDMS 23:13 Jose Alfredo Sloan MD is Hospitalizing Provider. kdr 23:17 Danilo Abreu MD is Hospitalizing Provider. kdr 23:56 Provided Education on: . kd3 23:56 No provider procedures requiring assistance completed. Patient admitted, IV remains in kd3 place. Administered Medications: 20:04 Drug: Ondansetron IVP 4 mg Route: IVP; Site: left antecubital; kd3 20:04 Drug: morphine IVP or IV 2 mg Route: IVP; Infused Over: 4 mins; Site: left antecubital; kd3 20:44 Drug: NS 0.9% IV 1000 ml Route: IV; Rate: 1 bolus; Site: left antecubital; kd3 23:11 Follow up: IV Status: Completed infusion; IV Intake: 1000ml kd3 20:45 Drug: Amoxicillin PO 875 mg Route: PO; kd3 23:11 Drug: MethylPrednisoLONE IVP 125 mg Route: IVP; Site: left antecubital; kd3 23:48 CANCELLED (Other Intervention Used): HYDROcodone-acetaminophen PO 5 mg-325 mg 1 tabs PO hb once 23:52 Drug: Meclizine PO 25 mg Route: PO; kd3 23:52 Drug: Ketorolac IVP 15 mg Route: IVP; Site: left antecubital; kd3 Medication: 20:45 VIS not applicable for this client. kd3 Intake: 23:11 IV: 1000ml; Total: 1000ml. kd3 Outcome: 20:06 Discharge ordered by . sb4 23:20 Decision to Hospitalize by Provider. kdr 23:56 Admitted to Med/surg kd3 23:56 Condition: stable 23:56 Discharge instructions given to patient, family, Instructed on follow up and referral plans. the need for admit, Demonstrated understanding of instructions, follow-up care. 07/18 00:10 Patient left the ED. kd3 Signatures: Dispatcher [employer] EDMS Cricket Lyon MD MD kdr Doucette, Kyli RN RN kd3 Tawanna Montague, PA-C PA-C [email or web address] Gilma Blackwell6 Merna Farr PAS PAS ts1 Lucy Estevez, RN RN cm10 Radha Blood RN Corrections: (The following items were deleted from the chart) 07/17 16:33 16:33 Allergies: Zofran; cm10 cm10
[2023-07-17] MEDS ORDERED: MORPHINE 2 MG/ML SYR ONE ×2 (20:09→21:55)
[2023-07-17] MEDS ORDERED: ONDANSETRON 4 MG/2 ML VIAL ONE (20:10)
[2023-07-17 20:14] LABS: Albumin 3.8 g/dL (3.4-5.0); Bilirubin Total 0.4 mg/dL (0.2-1.0); Potassium 4.1 mEq/L (3.5-5.1); Protein, Total 7.7 g/dL (6.4-8.2)
[2023-07-17] MEDS ORDERED: NA CHLORIDE 0.9% 1,000 ML ONE (20:41)
[2023-07-17] MEDS ORDERED: AMOX/K CLAV 875 MG TAB ONE (20:43)
--- NOTE | 2023-07-17 21:38 | RAD REPORT ---
EXAM DESCRIPTION: CT - Head Brain Wo Cont - 07/17/2023 9:32 pm CLINICAL HISTORY: Dizziness;Confused Headache, drowsiness COMPARISON: <Comparisons> TECHNIQUE: All CT scans are performed using dose optimization technique as appropriate and may inclu de automated exposure control or mA/KV adjustment according to patient size. FINDINGS: No intracranial hemorrhage, hydrocephalus or extra-axial fluid collection.No areas of brai n edema or evidence of midline shift. The paranasal sinuses and mastoids are clear. The calvarium is intact. IMPRESSION: No acute intracranial abnormality.
[2023-07-17] MEDS ORDERED: METHYLPREDNISOLONE 125 MG INJ ONE (23:18)
[2023-07-17] MEDS ORDERED: MECLIZINE HCL 12.5 MG TAB ONE (23:57)
[2023-07-17] MEDS ORDERED: HYDROCODONE/APAP 10/325 TAB ONE (23:57)
[2023-07-17 23:59] LABS: C-Reactive Protein 3.33 mg/L (<3.00)
[2023-07-17] MEDS ORDERED: KETOROLAC 30 MG/ML INJ ONE (23:59)
--- NOTE | 2023-07-18 00:11 | P.HP ---
Certification for Inpatient Patient admitted to: Observation With expected LOS: <2 Midnights Patient will require the following post-hospital care: None Practitioner: I am a practitioner with admitting privileges, knowledge of patient current condition, hospital course, and medical plan of care. Services: Services provided to patient in accordance with Admission requirements found in Title 42 Section 412.3 of the Code of Federal Regulations Patient History Date of Service: 07/17/23 Reason for admission: Blurry vision, facial numbness History of Present Illness: 47-year-old female with history of migraines, seizure disorder who has not had a migraine or a seizure in "a long time" presents emergency department chief complaint of initially left-sided dental pain. She reports the pain began the last few days and she has a dentist appointment on Saturday but the pain became intolerable today. She reports that around 1500 today she began having some blurry vision in her left eye as well as dizziness. Her vision was tested in the ED right eye 20/20 left eye 20/20 she also reports some left-sided facial numbness on exam. CT head, facial bones negative for acute findings Labs are unremarkable she is given Augmentin, pain medications in the ED, ED provider wishes to admit under observation for further evaluation, likely MRI, neurology consult. 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 moist/pink, EOMI, Sclerae nonicteric Neck: Supple, 2+ carotid pulse no bruit, No LAD, Without JVD or thyroid abnormality Respiratory: Clear to auscultation bilaterally, Normal air movement Cardiovascular: No edema, Regular rate/rhythm, Normal S1 S2 Capillary refill: <2 Seconds Gastrointestinal: Normal bowel sounds, No tenderness Musculoskeletal: No tenderness Integumentary: No rashes Neurological: Normal gait, Normal speech, Normal strength at 5/5 x4 extr, Normal tone, Normal affect, Abnormal sensation (decreased sensation left face, blurry vision left eye, visual silva intact. ) - Studies Laboratory Data (last 24 hrs) 07/17/23 07/17/23 19:35 19:35 WBC 9.40 Hgb 14.4 Hct 42.5 Plt Count 307 Sodium 137 Potassium 4.1 BUN 9 Creatinine 1.12 H Glucose 105 Total Bilirubin 0.4 AST 21 ALT 35 Alkaline Phosphatase 71 Assessment and Plan - Plan Assessment: Left-sided facial numbness, blurry vision affecting left eye Left dental pain history of migraine/seizure Plan: Left-sided facial numbness, blurry vision affecting left eye Will obtain MRI, CRP to evaluate for possible temporal arteritis, neurology consult. Possibly related to left-sided dental pain/nerve pain continue treatment for dental pain with as needed pain medications, Augmentin. Left dental pain Continue Augmentin, follow-up with dentist. history of migraine/seizure Reports not having a seizure for a few years now, not on any medications at home. Follow-up outpatient. DVT PPX: Lovenox Code status: full Discharge Plan: Home Plan to discharge in: 24 Hours - Advance Directives Does patient have a Living Will: No Does patient have a Durable POA for Healthcare: No - Code Status/Comfort Care Code Status Assessed: Yes (Full code) Critical Care: No Time Spent Managing Pts Care (In Minutes): 55
[2023-07-18] MEDS ORDERED: ACETAMINOPHEN 500 MG TAB PO PRN (00:32)
[2023-07-18] MEDS ORDERED: TRAMADOL HCL 50 MG TAB PO PRN (00:32)
[2023-07-18] MEDS ORDERED: ONDANSETRON 4 MG/2 ML VIAL IV PRN (00:32)
[2023-07-18 02:45] VITALS: BMI 30.7
[2023-07-18] MEDS ORDERED: KETOROLAC 30 MG/ML INJ IV PRN (06:00)
[2023-07-18 06:09] LABS: Absolute Lymphocytes (CBC) 0.6 K/uL (0.7-4.9); Lymphocytes % 5.8 % (15.3-44.8); MCV 92.9 fL (80-100); MPV 7.6 fL (7.6-11.3); Platelets 282 thou/uL (152-406); RBC Red Blood Cell Count 4.42 M/uL (3.86-4.86)
[2023-07-18 06:35] LABS: Potassium 4.3 mEq/L (3.5-5.1); Thyroid Stimulating Hormone 0.599 uIU/mL (0.358-3.740)
[2023-07-18 07:23] LABS: Blood Morphology Comment NOT SEEN (NOT SEEN); Platelet Estimate ADEQ; White Blood Cell Scan OK (OK)
--- NOTE | 2023-07-18 08:38 | RAD REPORT ---
EXAM DESCRIPTION: MRI - Brain Wo Cont - 07/18/2023 8:11 am CLINICAL HISTORY: blurry vision, facial numbness COMPARISON: Head CT and facial bones 07/17/2023 TECHNIQUE: Multiplanar multisequence MRI of the brain performed without IV contrast. FINDINGS: No evidence of acute infarct or other diffusion signal abnormality. No evidence of acute intracranial hemorrhage or abnormal extra-axial fluid collections. Ventricular caliber within normal for age. Midline structures are unremarkable. No significant white matter signal abnormalities. No mass effect or midline shift. Major vascular flow voids are preserved. Mastoid air cells and paranasal sinuses are clear. IMPRESSION: No acute intracranial process. No evidence of ventriculomegaly or mass effect.
[2023-07-18] MEDS ORDERED: AMOX/K CLAV 875 MG TAB PO SCH (09:00)
[2023-07-18] MEDS ORDERED: ENOXAPARIN 40 MG/0.4 ML SQ SCH (09:00)
[2023-07-18 11:06] VITALS: O2SAT 97
--- NOTE | 2023-07-18 15:58 | P.DS ---
Admission Date: 07/17/23 Discharge Date: 07/18/23 Disposition: ROUTINE DISCHARGE Discharge Condition: GOOD Reason for Admission: Blurry vision, facial numbness Brief History of Present Illness: 47 y o female pt with medical hx significant for seizure disorder who was evaluated for episode of pain simulating suspected headache r/o temporal arteritis. she was started on anti-inflammatory meds and was worked up with imaging studies which revealed no major abnormalities. she was admitted for inpt care and was asked to be seen by neurologist. Hospital Course: She was seen and evaluated by neurologist and all images were reviewed. She was deemed to have some sort of headache and she was started on Tegretol. Also antibiotic for dental caries was continued. She will follow-up with outpatient neurologist and dentist for appropriate care. Vital Signs/Physical Exam: Temp Pulse Resp BP Pulse Ox 97.7 F 59 16 113/65 97 07/18/23 08:00 07/18/23 08:00 07/18/23 08:00 07/18/23 08:00 07/18/23 08:00 General: Alert, Oriented x3 HEENT: Atraumatic, Normocephalic Neck: Supple Respiratory: Normal air movement Cardiovascular: Regular rate/rhythm, Normal S1 S2 Gastrointestinal: Soft and benign Neurological: Normal speech, Normal strength at 5/5 x4 extr Laboratory Data at Discharge: WBC 9.50 thou/uL (4.3-10.9) 07/18/23 06:00 Hgb 14.0 g/dL (12.0-15.0) 07/18/23 06:00 Hct 41.0 % (36.0-45.0) 07/18/23 06:00 Plt Count 282 thou/uL (152-406) 07/18/23 06:00 Sodium 136 mEq/L (136-145) 07/18/23 06:00 Potassium 4.3 mEq/L (3.5-5.1) 07/18/23 06:00 BUN 8 mg/dL (7-18) 07/18/23 06:00 Creatinine 1.01 mg/dL (0.55-1.02) 07/18/23 06:00 Glucose 153 mg/dL (74-106) H 07/18/23 06:00 Total Bilirubin 0.4 mg/dL (0.2-1.0) 07/17/23 19:35 AST 21 U/L (15-37) 07/17/23 19:35 ALT 35 U/L (13-56) 07/17/23 19:35 Alkaline Phosphatase 71 U/L (45-117) 07/17/23 19:35 Triglycerides 57 mg/dL (<150) 07/18/23 06:00 Cholesterol 178 mg/dL (<200) 07/18/23 06:00 HDL Cholesterol 62 mg/dL (40-60) H 07/18/23 06:00 Cholesterol/HDL Ratio 2.87 07/18/23 06:00 Home Medications: Amox/Clavulanate [Augmentin 875-125 Tab*] 875 mg PO BID #14 tab 07/18/23 Carbamazepine [Tegretol] 200 mg PO BEDTIME 30 Days #30 tab 07/18/23 New Medications: Amox/Clavulanate [Augmentin 875-125 Tab*] 875 mg PO BID #14 tab Carbamazepine [Tegretol] 200 mg PO BEDTIME 30 Days #30 tab Diet: Regular Activity: Ad troy Followup: Vinny Worthy MD [ASSOCIATE-ACTIVE - CAN ADMIT] -
[2023-07-18 17:14] VITALS: BP 100/54; TEMP 98.2
--- NOTE | 2023-07-19 01:15 | CON ---
Reason For Consultation: Blurry vision, facial numbness. History Of Present Illness: Ms. Desir is a 47-year-old patient with history of mi graine and seizures, who comes with left-sided pain, initially felt to be dental. Pain started a few days ago and the patient was seen by dentist on Saturday, but the pain worsened and was not managed by [id number] medications. She was seen in emergency room and had full 20/20 vision bilaterally and they complained then of numbness of the left face. CT scan and facial bones were negative for an y acute issues. She was treated with Augmentin and admitted for further evaluation. Her MRI of the brain ruled out any acute ischemic or hemorrhagic stroke. The patient did not have any focal deficit s in terms of the arm or legs and no weakness or asymmetry of facial movement. Past Medical History: As noted above and reported generalized seizures. Past Surgical History: Appendectomy, cholecystectomy, partial hysterectomy, right wrist surgery, rig ht axillary I and D, and left shoulder surgery as traumatic. Allergies: CARBAMAZEPINE, HYDROCODONE, IODINE, PHENYTOIN, PHENERGAN, AND CIPROFLOXACIN. Medications: She is actually on no current medications. Family History: Cancer in father. Social History: Denies alcohol, tobacco, or IV drug use. Review of Systems: As noted, her left facial pain, some left eye third vision, and no other positives on a 10-point syst ems review. Physical Examination: Vital Signs: Blood pressure 113/65, pulse 89, respiratory rate 16, temperature 97.7, oxygen saturati on 97%. Weight 190 pounds, height 5 feet 6 inches, BMI 30.7. General: Ms. Desir is resting comfortably in her bed in the hospital room. HEENT: She is normocephalic, atraumatic. Sclerae anicteric. Oropharynx is pink and moist. Neck: Supple. Chest: Clear. Heart: Regular. Extremities: Show no clubbing, cyanosis, or edema. Neurological: She does report decreased to light touch temperature in the V2 and V3 distribution on the left compared to the right side. Otherwise, intact in the V1 distribution bilaterally. Face is symmetric with equal excursions and smiling. Tongue and palate are in midline. Motor examination in upper and lower extremities, 5/5. Sensation intact in upper and lower extremities. Coordination in tact in upper and lower extremities. Reflex is 2+ in upper and lower extremities. Gait, good stance , stride, and arm swing. Laboratory Studies: Complete blood count differential is essentially normal, although neutrophils di d increase from 75.5 to 93.4, but white blood cell count remained normal at 95.5. Chemistries; sodiu m 130, potassium 4.3, chloride 109, creatinine 1.01, glucose 153, calcium 8.2. HDL cholesterol 62, L DL 105. TSH 0.599. She had a negative urine tox screen test and as noted, head CT, brain MRI, and _ CT scan, all unremarkable. Assessment And Plan: Ms. Desir is a 47-year-old patient with possible complicated migraine involvi ng the left face. She has no evidence of a stroke on MRI and does have some numbness in the lower le ft face. She has comorbid reported history of seizures and there is, however, no current ongoing sei zure activity. She may benefit from migraine prophylaxis such as Qulipta 60 mg daily and may use Ubr gabriella 100 mg as needed up to twice daily to abort headaches and the migraine prophylaxis may help to p revent the focal findings of the facial numbness, which may be a complicated migraine feature. She may benefit from Chelated Magnesium 100 mg daily. She is instructed to drink at least 8 glasses of water daily. After discharge, she may follow up in Dr. Worthy's clinic within the month. SHYANNE/ROBER Voice ID: [id number] Report ID: [id number]
== END 2023-07-18 17:30 | disposition home or self-care (01) ==
LOC: ER 16:05 → ERHOLD 23:46 → INTOOBSV 23:46 → 4TH 07-18 00:01
PROVIDERS: ADMIT Hospitalist; ATTEND Internal Medicine Nephrology
DX: R51.9 Headache, unspecified (principal); K02.9 Dental caries, unspecified; H53.8 Other visual disturbances; R56.9 Unspecified convulsions; K08.89 Other specified disorders of teeth and supporting structures; Z88.1 Allergy status to other antibiotic agents; Z91.09 Other allergy status, other than to drugs and biological substances; Z88.8 Allergy status to other drugs, medicaments and biological substances
CPT/HCPCS: 36415; 70450; 70486; 70551; 76377; 80048; 80053; 80061; 80307; 83605; 84439; 84443; 84484; 85025; 86140; 96361; 96374; 96375; 99285; J1650; J2270; J2405; J2930; J7030; J8597